=== PATIENT | male | born 1975 | race Caucasian/White ===

== ENCOUNTER 2017-07-07 08:17 | Inpatient (IN) | payer MEDICARE, SELFPAY ==
[2017-07-07] VITALS (51 sets, daily range): BP systolic 95–142; BP diastolic 54–113; PULSE 75–157; RESP 16–41; TEMP 36–37; O2SAT 7–100
--- NOTE | 2017-07-07 08:32 | DI.RPTCT_ITS ---
SYMPTOM/DIAGNOSIS: ABD PAIN, SEVERE CT ABDOMEN AND PELVIS: CT scan of the abdomen and pelvis was performed following the uneventful administration of intravenous contrast material. Comparison examination is 07/03. The lung bases are clear. On the current examination there is now free air seen beneath the hemidiaphragms. There is now a moderate amount of dilma-hepatic and dilma- splenic free fluid and a small amount of free fluid in the pelvis. There are again seen distended loops of small bowel with transition in the right abdomen near the enterocolonic anastomosis. There is diffuse bowel wall thickening seen in the proximal small bowel. No portal venous gas is identified. The urinary bladder is distended. There is layering material in the gallbladder. This may be due to the patient's previous CT scan. No biliary ductal dilatation is seen. The distal esophagus is mildly distended with fluid. The liver, spleen, pancreas, adrenal glands and kidneys are unchanged. IMPRESSION: In comparison with the examination from 07/03/17 there is now pneumoperitoneum and moderate amount of abdominal pelvic ascites. 2. There is persistent dilatation of loops of small bowel with transition seen in the right abdomen consistent with a small bowel obstruction. 3. Bowel wall thickening involving the proximal small bowel. No portal venous gas. Ischemic bowel should be considered in addition to an inflammatory infectious enteritis. These findings were discussed with Dr. Bebeto Rodriguez of the Emergency Department on the date of the examination.
--- NOTE | 2017-07-07 08:37 | ED.GENADUL ---
Disposition Clinical Impression: Crohns disease, Small bowel obstruction, Perforated bowel Disposition: [facility] INPATIENT Condition: Critical Medical Decision Making - Medical Decision Making 8:40 -- 42-year-old male with history of Crohn's and partial small bowel resection, recently admitted for small bowel obstruction with volvulus and concern for developing ischemic enteritis on CT imaging, discharge yesterday, presents with severe abdominal pain persistent over the past 30 days, inability to tolerate p.o. fluids. ECG reviewed and interpreted by me: Sinus tachycardia, short AR with AR interval of 84, nonspecific T-wave abnormality. Plan to treat pain with Dilaudid 1 mg IV. I will give IV fluids as patient is severely dehydrated. Consider ischemic bowel versus persistent small bowel obstruction. 9:42 --CT of the abdomen and pelvis interpreted by radiology: Persistent dilated loops of small bowel, thickened bowel wall, free air and free fluid. Concern for bowel rupture. Stat consult to surgery. We will start Zosyn IV. Labs reviewed and significant elevation of lactate. Patient reassessed and remains tachycardic. Continue IV fluid. 9:47 --spoke to Dr. Arteaga who will take the patient to the OR. History of Present Illness - General Chief complaint: Abd Prob Stated complaint: PAIN Time Seen by Provider: 07/07/17 08:29 Source: patient, RN notes reviewed Mode of arrival: ambulatory Limitations: no limitations - History of Present Illness Initial comments: 42-year-old male with history of Crohn's disease, small bowel resection, presents with chief complaint of abdominal pain. Abdominal pain is localized to diffuse abdomen, sharp, severe and constant. Pain is been ongoing for the past 13 days. Patient was seen here on 07/03/2017 and admitted for acute mechanical small bowel obstruction with a suspected component of volvulus with developing ischemic enteritis seen on CT imaging. He received IV fluids and seemed to improve clinically per inpatient notes and he was discharged yesterday. Since he has been home he notes that his pain has continued and he has not been able to take anything except water p.o. He has had some continued nausea and vomiting. No fevers. Patient does feel generally weak. He was not able to sleep last night because the pain was so unbearable. - Related Data Acetaminophen [Tylenol] 650 mg PO Q6H PRN PRN #30 tab 07/06/17 Prednisone See Taper PO DAILY #252 tablet 07/06/17 Allergies Allergy/AdvReac Type Severity Reaction Status Date / Time No Known Allergies Allergy Unverified 07/07/17 09:01 Review of Systems Respiratory: shortness of breath Cardiovascular: denies: chest pain Gastrointestinal: as per HPI, abdominal pain, nausea, vomiting Comment: All other systems reviewed and negative Past Medical History - Past Medical History Crohn's disease Surgical history: other (Status post bowel resection) - Social History Alcohol use: none Drug use: marijuana General Exam - General Limitations: no limitations General appearance: alert, in no apparent distress - Eye Eye exam: Absent: scleral icterus, conjunctival injection - ENT ENT exam: Present: mucous membranes dry - Respiratory Respiratory exam: Present: normal lung sounds bilaterally. Absent: wheezes, rales, rhonchi - Cardiovascular Cardiovascular Exam: Present: normal rhythm, tachycardia, normal heart sounds - GI/Abdominal GI/Abdominal exam: Present: soft, tenderness, guarding, hypoactive bowel sounds. Absent: rebound, rigid - Extremities Exam Extremities exam: Present: pedal edema (Trace bilateral about the ankles) - Neurological Exam Neurological exam: Present: alert. Absent: altered - Psychiatric Psychiatric exam: Present: normal affect - Skin Skin exam: Present: warm, dry, intact Course Vital Signs - 24 hr 07/07/17 08:25 Temperature 36.2 C L Pulse 157 H Respiratory 16 Rate Blood Pressure 111/84 Pulse Oximetry 99
[2017-07-07] MEDS: Normal Saline 1,000 ML 1000 ML IV (08:50)
[2017-07-07] MEDS: HYDROmorphone 2 MG/ML VIAL 1 MG IVP ×2 (08:51→09:12)
[2017-07-07] MEDS: Ondansetron 4 MG/2 ML VIAL IVP (08:55)
[2017-07-07 08:56] LABS: Abs Immature Grans 0.33 k/cumm (0.0-0.09); HCT 37.6 % (40.0-50.0); HGB 12.7 g/dL (13.5-17.5); Mean Corp. HGB Concentration 33.8 g/dL (32.0-36.0); Mean Corpuscular Hemoglobin 31.8 pg (27.0-33.0); Mean Platelet Volume 10.4 fL (8.0-11.0); RBC Distribution Width 13.4 % (11.8-14.1); White Blood Cell Count 4.95 k/cumm (4.4-10.8)
[2017-07-07 09:00] LABS: Lactate-non-spesis 8.1 mmol/L (0.6-1.4)
[2017-07-07 09:08] LABS: ALT 22 U/L (16-63); AST 30 U/L (15-37); Albumin 1.3 g/dL (3.4-5.0); Alkaline Phosphatase 71 U/L (46-116); Anion Gap 15.1 mmol/L (3-11); BUN 30 mg/dL (7-18); Bilirubin, Total 0.78 mg/dL (0.2-1.0); CO2 21.9 mmol/L (21.0-32.0); CREATININE 1.25 mg/dL (0.70-1.30); Calcium 8.7 mg/dL (8.5-10.1); Chloride 96 mmol/L (98-107); Glucose 146 mg/dL (70-100); Potassium 4.3 mmol/L (3.5-5.1); Sodium 133 mmol/L (136-145); Total Protein 5.8 g/dL (6.4-8.2)
[2017-07-07 09:09] LABS: Lipase 36 U/L (73-393)
[2017-07-07 09:27] LABS: Absolute Lymphocyte Count 1.04 k/cumm (1.2-3.4); Absolute Neutrophil Count 3.12 k/cumm (1.2-6.7); Atypical Lymphocytes % 4
[2017-07-07 09:28] LABS: Absolute Basophil Count 0.05 k/cumm (0.0-0.2); Absolute Monocyte Count 0.25 k/cumm (0.11-0.7); Diff Comment Manual Differential; Polychromasia Present
[2017-07-07 09:29] LABS: Platelet Count 295 x1000/uL (130-400)
[2017-07-07] MEDS: Omnipaque 350 MG/ML 100 ML BTL IJ (09:38)
--- NOTE | 2017-07-07 09:52 | NUR.NOTE ---
Nursing Note: Per patient's request, contacted patient's mother to let her know that he would be going to surgery shortly and would then be up on the med surg floor.
--- NOTE | 2017-07-07 10:53 | HPE_ITS ---
DATE OF SERVICE July 07, 2017 ASSESSMENT A 42-year-old with a history of Crohn's was admitted with acute flare. He seemed to be doing better, minimal abdominal pain, was eating, passing gas and having bowel movements, so he was discharged yesterday. He comes back today with increased abdominal pain and now free air on CAT scan. PLAN Exploratory laparotomy with lysis of adhesions, bowel resection, wash out, possible wound VAC, central line and A-line placements. The risks, benefits and complications were reviewed with him and he wished to proceed. No guarantees were given or implied. HISTORY OF PRESENT ILLNESS Mr. Grossman is a pleasant 42-year-old gentleman who was just admitted on 07/03 for Crohn's flare. He was started on IV prednisone. Yesterday, Thursday 07/06, the patient's pain was much better. He was eating, he was having bowel movements , passing gas, so he was discharged home on a prednisone taper. He was counseled on diet. He comes back today with increasing abdominal pain, nausea, vomiting, inability to tolerate any fluids. He is diaphoretic with chills. CT scan was repeated in the Emergency Department and unfortunately, it shows an obstruction again with a lot of inflammation, fluid and now free air. PAST MEDICAL HISTORY 1. Gastroesophageal reflux disease. 2. Crohn's, which has not been treated for a long time. PAST SURGICAL HISTORY 1. Bilateral inguinal hernia repairs as a child. 2. Small bowel resection x2 for Crohn's. FAMILY HISTORY Family history is significant for Afib in his mom. Hyperthyroid in his mom. SOCIAL HISTORY He smokes a pack a day since age 18. Alcohol is occasional. He does use marijuana. He lives at home with girl friend and his kids. HOME MEDICATIONS Prednisone, which he was discharged with yesterday, he had not yet picked up. Tylenol and ibuprofen for pain. ALLERGIES TO MEDICATIONS No known drug allergies. REVIEW OF SYSTEMS CONSTITUTIONAL - Chills, diaphoretic, sweating. HEENT - EYES - are negative for vision changes. ENT negative for hearing changes or ear discharge. RESPIRATORY - No shortness of breath or cough. CARDIOVASCULAR - Feels palpitations. GASTROINTESTINAL - Abdominal pain, which is severe and nausea. GENITOURINARY - No dysuria or hematuria. MUSCULOSKELETAL - Negative. SKIN - No rashes or bruising. NEUROLOGIC - No confusion or seizures. PHYSICAL EXAMINATION VITAL SIGNS - Temperature 36.2. Pulse rate 157. Blood pressure 111/84. Pain of 10. Respiratory rate 16. O2 sats 99% on room air. GENERAL - The patient looks in pain. He is pale and diaphoretic. CARDIOVASCULAR - Sinus tachycardia. No murmurs. CHEST - Clear to auscultation, good air bilaterally. ABDOMEN - Abdomen is distended, tender to palpation diffusely. LABORATORY STUDIES White count is 4.95, hemoglobin 12.7, hematocrit 37.6, platelets 295, bands 33% , [id number], potassium 4.3, chloride 96, carbon dioxide 21.9, BUN 30, creatinine 1.25, glucose 146, lactate 8.1, calcium 8.7. LFTs normal, albumin 1.3.
[2017-07-07 11:09] LABS: HCO3 21 mmol/L (22-28); pCO2 49 mmHg (34-47); pH 7.24 (7.35-7.45); pO2 327 mmHg (83-108); sO2 98 % (94-98); tCO2 20 mmol/L (22-29)
[2017-07-07 11:13] LABS: Site Left Radial
[2017-07-07 11:14] LABS: FIO2L Unknown/Not Given L
--- NOTE | 2017-07-07 11:20 | BOWEL_PTH ---
PATIENT: Aditya Grossman LOC: ICU U#:[id number] AGE/SX: 42/M ROOM: ICU.219 RE07/07/[address]: Aminta Arteaga MD : [id number] BED: A DIS: 07/10/2017 SPEC #: [id number] RECD: 07/07/17 13:20 STATUS: JIM REQ #: [id number] LIANA: 07/07/17 11:[address]: Aminta Arteaga DEPT: Surgical Specimen RECD BY: Lauren Jacome ENTERED: 07/07/17 13:21 SP TYPE: Bowel OTHR DR: Jeanne Alatorre, REYNA Tissues: 1 - BOWEL RESECTION(OTHER) Procedures: GROSS AND MICRO LEVEL 5 Comments: [id number]
[2017-07-07] MEDS: Bupivacaine 0.5% Pres-Free 30 ML VIAL (12:30)
[2017-07-07 13:31] LABS: Abs Immature Grans 0.03 k/cumm (0.0-0.09); HCT 26.9 % (40.0-50.0); HGB 9.2 g/dL (13.5-17.5); Lactate-non-spesis 5.1 mmol/L (0.6-1.4); Mean Corp. HGB Concentration 34.2 g/dL (32.0-36.0); Mean Corpuscular Hemoglobin 31.9 pg (27.0-33.0); Mean Corpuscular Volume 93.4 fL (80-95); Mean Platelet Volume 10.4 fL (8.0-11.0); RBC 2.88 m/cumm (4.50-6.00); White Blood Cell Count 2.13 k/cumm (4.4-10.8)
[2017-07-07 13:43] LABS: BUN 26 mg/dL (7-18); CREATININE 0.67 mg/dL (0.70-1.30); Calcium 7.3 mg/dL (8.5-10.1); Glucose 92 mg/dL (70-100)
[2017-07-07 13:44] LABS: Anion Gap 10.3 mmol/L (3-11); CO2 20.7 mmol/L (21.0-32.0); Chloride 102 mmol/L (98-107); Potassium 4.2 mmol/L (3.5-5.1); Sodium 133 mmol/L (136-145)
[2017-07-07 14:06] LABS: Absolute Monocyte Count 0.13 k/cumm (0.11-0.7); Absolute Neutrophil Count 1.34 k/cumm (1.2-6.7); Atypical Lymphocytes % 7
[2017-07-07 14:09] LABS: Platelet Count 152 x1000/uL (130-400); Polychromasia Present
[2017-07-07 14:10] LABS: Diff Comment Manual Differential
--- NOTE | 2017-07-07 14:26 | DI.REPORT_ITS ---
SYMPTOM/DIAGNOSIS: LINE PLACEMENT, EMERGENCY SURGERY FOR BOWEL PORTABLE AP CHEST; Comparison is made with 11/10/09. Heart size and pulmonary vasculature are within normal limits. The lungs are clear. There is a nasogastric tube, the tip is seen in the body of the stomach. There has been interval placement of a right internal jugular central venous catheter. The tip of the catheter is in the superior vena cava. No pneumothorax is identified. Note is made of free air beneath the hemidiaphragm. This was present on CT scan of the abdomen and pelvis from earlier in the day. IMPRESSION: Right internal jugular central venous catheter placement, tip of the catheter is in good position in the superior vena cava. No pneumothorax is identified.
[2017-07-07] MEDS: Lactated Ringers 1,000 ML 250 ML IV ×4 (15:21→22:01)
[2017-07-07] MEDS: Lactated Ringers 1,000 ML 1000 ML IV ×3 (16:02→20:23)
[2017-07-07] MEDS: Pantoprazole 40 MG VIAL IVP (16:21)
[2017-07-07] MEDS: Normal Saline Flush 10 ML SYR IVP ×3 (16:22→23:51)
[2017-07-07 17:28] LABS: BE -1.3 mmol/L (-3-3); HCO3 23 mmol/L (22-28); pCO2 36 mmHg (34-47); pH 7.42 (7.35-7.45); pO2 85 mmHg (83-108); sO2 96 % (94-98); tCO2 22 mmol/L (22-29)
[2017-07-07 17:30] LABS: Site Arterial Line
[2017-07-07] MEDS: Ketorolac 30 MG/ML VIAL IVP ×2 (18:34→23:50)
--- NOTE | 2017-07-07 20:56 | ROE_ITS ---
DATE OF PROCEDURE: July 07, 2017 PREOPERATIVE DIAGNOSIS: #1. Free air. #2. History of Crohn's. POSTOPERATIVE DIAGNOSIS: #1. Necrotic small and large bowel around old anastomosis with perforation. PROCEDURE: #1. Exploratory laparotomy with lysis of adhesions. #2. Resection of ischemic bowel with [id number] stapled anastomosis and creation of loop ileostomy . SURGEON: Aminta Arteaga M.D. ASSISTANTS: Aditya Mccarthy PA-C and Shane Cotton PA-C ANESTHESIA: General endotracheal anesthesia. ANESTHESIA PROVIDER: Asad Hunt CRNA BLOOD LOSS: 50 cc SPECIMENS: 20 cm of small bowel and another 10-15 cm of large bowel including an old anastomosis. FLUIDS GIVEN: 3 liters. URINE OUTPUT: 300 cc of very dark brown urine. COMPLICATIONS: No immediate complications. INDICATIONS: Mr. Grossman is a 42-year-old gentleman with a history of Crohn's who was admitted [facility] on Tuesday with an acute flare of Crohn's. I took over care on Tuesday. At that time the patie nt was doing well, NG output had decreased, and he was tolerating a clear liquid diet. I slowly adva nced his diet and Tuesday he was feeling well, eating, having bowel movements and passing gas so he discharged home on p.o. prednisone. He returned to the ER today looking much worse, diaphoretic, pa le, and in a lot of abdominal pain. Repeat CT scan now showed free air so the patient was taken cedric gently to the OR. The risks, benefits, and complications were reviewed and he wished to proceed. No guarantees were given or implied. FINDINGS: 20 cm of dilated, thickened, and ischemic-looking small bowel and about 10 cm of thickened large bowel around the old anastomosis. PROCEDURE: After informed consent was obtained the patient was taken to the Operating Room and place d in a supine position. Monitors were applied and he was placed under general anesthesia and intubat ed. SCDs had been applied. Once intubated a time-out was done. The patient's name, date of , procedure type, allergies to medications, DVT prophylaxis and antibiotic given were all reviewed. Ne xt, a Cleaning catheter was placed in a standard surgical fashion and his abdomen was prepped and draped in a sterile surgical fashion. Using a 10 blade, a midline incision was made along his old midline scar. Dissection was done with charlotte cui through his subcutaneous tissue down to the fascia. The fascia was grasped and opened sharply , being careful not to injure any bowel underneath. As soon as I made an opening into the fascia, th ere was black fluid coming through. The rest of the fascia was opened along the incision and all of the fluid was suctioned out. A [place] was then placed to retract the abdominal wall and the bowel w as inspected. There was no volvulus noted. The omentum was adhered to parts of the abdominal wall a nd this was taken down using cautery. The ligament of Treitz was then identified and I followed that along the bowel until I found the edge of the ischemic area. The healthy bowel was measured and it was 184 cm of bowel. A small opening was then made in the mesentery at the edge of the necrotic bowel and healthy bowel an d using a 55 PARVIN stapler the bowel was stapled off. The necrotic bowel was then followed onto the ol d anastomosis which was scarred down quite a bit and the small amount of ascending colon that he had did not look healthy; it was quite thickened and had some patchy necrosis. I found an area in the tr ansverse colon that looked healthy, not thickened, and again a small opening was made in the mesenter y and the bowel was stapled off with a 75 PARVIN stapler. The mesentery was then coagulated and cut wit h an LAURIE HARMONIC. The bowel was then removed. Again, it was about 30 cm in length, 20 of that smal l bowel and 10 large bowel. It was placed into formalin. The abdomen was then thoroughly irrigated with a total of 6 liters of fluid, making sure to get all the fluid from above the liver, from the le ft upper quadrant around the spleen, and then in his pelvis. The rest of his large bowel was followe d. It looked healthy. A [id number]-eu-rzzw anastomosis was then created. The small bowel was laid next to the transverse colon. It was secured with #2-0 silk. A small incision was made on the antimesenteric side, a 55 PARVIN stapl er was placed through these two openings, and a new enterotomy was created between the two pieces of bowel. The end of the bowel was then transected again with a 55 PARVIN stapler. The staple line was th en oversewn with #2-0 silk. The bowel was then placed into the abdomen so that there was no tension on his new anastomosis. The mesentery was then closed with #2-0 Vicryl. At this point, because the patient had been on prednisone and more than likely will be on prednisone again afterwards, his nutrition is dismal at this point with an albumin of 1.3, and he is quite sick, I elected to do a loop ileostomy. Just to the left of the umbilicus, a small round incision was mad e with a 10 blade. The subcutaneous tissue was removed. An X was placed into the fascia and the per itoneum was entered with hemostats. The opening was stretched with my fingers. A loop of the small bowel was then brought up. The fascia was then closed with two #1 Vicryl sutures tied in the middle. The subcutaneous tissue was cleaned. Exparel mixed with bupivacaine was then injected along the fa scia and into the dermis. Once this was done, the loop ileostomy was created. An incision was made in the bowel with a knife. The bowel was secured to the fascia and four corners and then the ileosto my was created in a standard fashion with #2-0 silk. Once the ostomy was created, I placed a finger in each side to make sure that it was not too tight. I was able to place my finger easily into both loops. The skin was then cleaned and dried and an ostomy bag was applied. Then 4x4s were applied to the midline and secured with Tegaderm. At this point the patient was doing fairly well so he was extubated and taken up to the ICU for monit oring overnight. Sponge, instrument, and needle counts were correct x3 at the end of the case.
[2017-07-07] MEDS: Hydrocortisone SOD SUC. 100 MG VIAL 50 MG IVP (21:11)
[2017-07-08] VITALS (41 sets, daily range): BP systolic 93–125; BP diastolic 53–95; PULSE 104–133; RESP 21–38; TEMP 36–37; O2SAT 92–98
[2017-07-08] MEDS: Lactated Ringers 1,000 ML 250 ML IV ×2 (01:37→05:14)
[2017-07-08] MEDS: Hydrocortisone SOD SUC. 100 MG VIAL 50 MG IVP ×3 (05:15→21:08)
[2017-07-08] MEDS: Ketorolac 30 MG/ML VIAL IVP ×3 (05:16→18:09)
[2017-07-08 06:49] LABS: Abs Immature Grans 0.22 k/cumm (0.0-0.09); HCT 23.8 % (40.0-50.0); HGB 8.1 g/dL (13.5-17.5); Mean Corpuscular Hemoglobin 31.8 pg (27.0-33.0); Mean Corpuscular Volume 93.3 fL (80-95); Mean Platelet Volume 10.8 fL (8.0-11.0); Platelet Count 121 x1000/uL (130-400); RBC 2.55 m/cumm (4.50-6.00); RBC Distribution Width 13.3 % (11.8-14.1); White Blood Cell Count 3.66 k/cumm (4.4-10.8)
[2017-07-08 07:01] LABS: ALT 33 U/L (16-63); AST 70 U/L (15-37); Albumin 0.6 g/dL (3.4-5.0); Alkaline Phosphatase 47 U/L (46-116); Anion Gap 8.6 mmol/L (3-11); BUN 18 mg/dL (7-18); Bilirubin, Total 0.67 mg/dL (0.2-1.0); CO2 25.4 mmol/L (21.0-32.0); CREATININE 0.64 mg/dL (0.70-1.30); Calcium 7.4 mg/dL (8.5-10.1); Chloride 104 mmol/L (98-107); Potassium 4.2 mmol/L (3.5-5.1); Sodium 138 mmol/L (136-145); Total Protein 3.7 g/dL (6.4-8.2)
[2017-07-08 07:16] LABS: Glucose 47 mg/dL (70-100)
[2017-07-08 07:25] LABS: Absolute Lymphocyte Count 0.59 k/cumm (1.2-3.4); Absolute Monocyte Count 0.11 k/cumm (0.11-0.7); Absolute Neutrophil Count 2.78 k/cumm (1.2-6.7)
[2017-07-08 07:26] LABS: Absolute Eosinophil Count 0.04 k/cumm (0.0-0.7); Diff Comment Manual Differential; Microcytosis 1+; Poikilocytes 2+
[2017-07-08] MEDS: Normal Saline Flush 10 ML SYR IVP ×5 (07:45→21:09)
[2017-07-08 07:54] LABS: Magnesium 1.4 mg/dL (1.8-2.4)
[2017-07-08 07:56] LABS: Lactate-non-spesis 2.7 mmol/L (0.6-1.4)
[2017-07-08] MEDS: Pantoprazole 40 MG VIAL IVP (08:03)
[2017-07-08] MEDS: DEXTROSE 5%-0.45% SALINE 1,000 ML 150 ML IV ×2 (08:04→14:35)
[2017-07-08] MEDS: Dextrose 50%-Water 25 GM/50 ML SYR IVP (08:43)
--- NOTE | 2017-07-08 08:44 | PDOC.PROG ---
Date of Service: 07/08/17 Time of Service: 08:45 Assessment/Plan - Assessment/Plan (1) SBO (small bowel obstruction) Assessment: POD 1 S/P exploration for perforation and small bowel resection Has required large amount iv fluid thus far UO fair Postop ileus is fully expected Bowel sounds are absent presently however abdomen is nondistended and not particularly tender Small amount of liquid stool in bag this am NG output is no longer black-resolved gastric bleeding with Protonix Run of ventricular arrhythmia of undetermined etiology this am K is normal at 4.2 Mg is low Plan: NPO until passing gas and stool well Hydrate appropriately-follow outputs closely-creatinie this am is improved Supplement magnesium Hospitalist consult for arrhythmia and glucose control Aggressive respiratory therapy OOB in chair as tolerated Daily saline dressing change History of Present Illness - History of Present Illness Chief Complaint: Pt says he is pretty comfortable except at incision Review of Systems - Medications/Allergies Allergies/Adverse Reactions: Allergies Allergy/AdvReac Type Severity Reaction Status Date / Time No Known Allergies Allergy Unverified 07/07/17 09:01 Medications: Current Medications Albuterol Sulfate (Proventil Updraft) 2.5 mg UPD Q2H PRN PRN Albuterol/Ipratropium (Duoneb Updraft) 3 ml UPD Q6H PRN PRN Dextrose/Water () 0 gm IVP DIRECTED PRN Dimethicone/Zinc Oxide (Pavel Protect Cream) 0 gm TP PRN PRN Enoxaparin Sodium (Lovenox) 30 mg SC Q24H [facility] Hydrocortisone (Solu-Cortef) 50 mg IVP Q8H [facility] Last Admin: 07/08/17 05:15 Dose: 50 mg Hydromorphone HCl (Dilaudid Injection) 1 mg IVP Q4H PRN PRN Acetaminophen 1,000 mg/ Device 100 mls @ 400 mls/hr IVPB Q8H [facility] Last Admin: 07/08/17 05:17 Dose: 400 mls/hr Piperacillin/Tazobactam/ (Dextrose 3.375 gm/ Device) 50 mls @ 100 mls/hr IVPB Q6H [facility] Last Admin: 07/08/17 03:52 Dose: 100 mls/hr Dextrose/Sodium Chloride (Dextrose 5%-0.45% Ns) 1,000 mls @ 150 mls/hr IV INFUSION [facility] Last Admin: 07/08/17 08:04 Dose: 150 mls/hr Magnesium Sulfate/Dextrose 1 g (/ Device) 100 mls @ 100 mls/hr IVPB NOW ONE Stop: 07/08/17 09:14 Fat Emulsion 250 ml/ Device 250 mls @ 31.25 mls/hr IV DAILY [facility] Sodium/Potass/Mag/Aleks/Chlor/Acetate 20 ml/ Multivitamins 10 ml/ Chromium/Copper/Manganese/Zinc 1 ml/ Amino Acids/Dextrose 1,031 mls @ 85.917 mls/hr IV .BY DURATION [facility] Sodium/Potass/Mag/Aleks/Chlor/Acetate 20 ml/ Amino Acids/Dextrose 1,020 mls @ 85 mls/hr IV .BY DURATION [facility] IV Miscellaneous Supplies () 1 each IV DIRECTED [facility] Ketorolac Tromethamine (Toradol Injection) 30 mg IVP Q6H [facility] Stop: 07/12/17 17:59 Last Admin: 07/08/17 05:16 Dose: 30 mg Ondansetron HCl (Zofran Injection) 4 mg IVP Q4H PRN PRN Pantoprazole Sodium (Protonix Injection) 40 mg IVP DAILY [facility] Last Admin: 07/08/17 08:03 Dose: 40 mg Sodium Chloride (Saline Flush 10 Ml Syringe) 0 ml IVP PRN PRN Last Admin: 07/08/17 07:45 Dose: 50 ml Objective - Exam Vitals and I&O: Vital Signs Temp 36 C L 07/08/17 05:17 Pulse 124 H 07/08/17 07:00 Resp 28 H 07/08/17 07:00 BP 99/63 07/08/17 07:00 Pulse Ox 92 L 07/08/17 07:00 Intake & Output 07/07/17 07/07/17 07/08/17 11:59 23:59 11:59 Intake Total 7124 2415 Output Total 1415 480 Balance 5709 1935 Weight 56.2 kg 61.4 kg Intake: IV 7024 2315 Oral 100 100 Output: Gastric Drainage 550 Left Nare 550 Urine 725 375 Stool 90 105 Estimated Blood Loss 50 Other: Urine Color Dark Dilia Dark Dilia Urine Appearance Cloudy Cloudy Comment Emptied at this time for 250cc dark dilia urine. PH 6, SG 1.020, No blood,leuks, ketones. Cleaning draining dark dilia urine, QS. PH 6, SG 1.020, No blood,leuks, ketones. Gastric Occult Blood Left Nare Negative Negative General: Alert, Other (appropriate affect, calm) HEENT: Mucous membr. moist/pink Lungs: Clear to auscultation, Normal air movement Cardiovascular: Regular rate Abdomen: Other Neurological: Normal speech Psych/Mental Status: Mental status NL Other physical findings: Bowel sounds are absent, abdomen is nondistended Dressing is intact, no sig blood on dressing-serous 375cc UO since midnight 120cc of liquiod in stoma bag this am - Results Results: Laboratory Results WBC 3.66 k/cumm (4.4-10.8) L D 07/08/17 06:00 RBC 2.55 m/cumm (4.50-6.00) L 07/08/17 06:00 Hgb 8.1 g/dL (13.5-17.5) L 07/08/17 06:00 Hct 23.8 % (40.0-50.0) L 07/08/17 06:00 MCV 93.3 fL (80-95) 07/08/17 06:00 MCH 31.8 pg (27.0-33.0) 07/08/17 06:00 MCHC 34.0 g/dL (32.0-36.0) 07/08/17 06:00 RDW 13.3 % (11.8-14.1) 07/08/17 06:00 Plt Count 121 x1000/uL (130-400) L 07/08/17 06:00 MPV 10.8 fL (8.0-11.0) 07/08/17 06:00 Immature Gran % See Differential 07/08/17 06:00 Neutrophils % 59.0 07/08/17 06:00 Lymphocytes % 16.0 07/08/17 06:00 Monocytes % 3.0 07/08/17 06:00 Eosinophils % 1.0 07/08/17 06:00 Basophils % 0.0 07/08/17 06:00 Absolute Neutrophils 2.78 k/cumm (1.2-6.7) 07/08/17 06:00 Band Neutrophils 17.0 % 07/08/17 06:00 Absolute Lymphocytes 0.59 k/cumm (1.2-3.4) L 07/08/17 06:00 Absolute Monocytes 0.11 k/cumm (0.11-0.7) 07/08/17 06:00 Absolute Eosinophils 0.04 k/cumm (0.0-0.7) 07/08/17 06:00 Absolute Basophils 0.00 k/cumm (0.0-0.2) 07/08/17 06:00 Metamyelocytes 4.0 % 07/08/17 06:00 Myelocytes 5.0 % 07/07/17 08:45 Differential Comment Manual differential 07/08/17 06:00 Atypical Lymphocytes 7 07/07/17 13:20 RBC Morphology See below 07/07/17 13:20 Polychromasia Present 07/07/17 13:20 Poikilocytosis 2+ 07/08/17 06:00 Microcytosis 1+ 07/08/17 06:00 Sample Site Arterial line 07/07/17 17:25 pCO2 36 mmHg (34-47) 07/07/17 17:25 pO2 85 mmHg (83-108) 07/07/17 17:25 O2 Saturation 96 % (94-98) 07/07/17 17:25 ABG pH 7.42 (7.35-7.45) 07/07/17 17:25 ABG HCO3 23 mmol/L (22-28) 07/07/17 17:25 ABG Total CO2 22 mmol/L (22-29) 07/07/17 17:25 ABG Base Excess -1.3 mmol/L (-3-3) 07/07/17 17:25 Oxygen Liter Flow Unknown/not given L 07/07/17 11:08 Sodium 138 mmol/L (136-145) 07/08/17 06:00 Potassium 4.2 mmol/L (3.5-5.1) 07/08/17 06:00 Chloride 104 mmol/L (98-107) 07/08/17 06:00 Carbon Dioxide 25.4 mmol/L (21.0-32.0) 07/08/17 06:00 Anion Gap 8.6 mmol/L (3-11) 07/08/17 06:00 BUN 18 mg/dL (7-18) D 07/08/17 06:00 Creatinine 0.64 mg/dL (0.70-1.30) L 07/08/17 06:00 Estimated GFR/1.73 m2 >= 60.00 (mL/min/1.73m2) 07/08/17 06:00 Glucose 47 mg/dL (70-100) L 07/08/17 06:00 Lactate 2.7 mmol/L (0.6-1.4) H 07/08/17 07:50 Calcium 7.4 mg/dL (8.5-10.1) L 07/08/17 06:00 Magnesium 1.4 mg/dL (1.8-2.4) L 07/08/17 06:00 Total Bilirubin 0.67 mg/dL (0.2-1.0) 07/08/17 06:00 AST 70 U/L (15-37) H 07/08/17 06:00 ALT 33 U/L (16-63) 07/08/17 06:00 Alkaline Phosphatase 47 U/L (46-116) 07/08/17 06:00 Total Protein 3.7 g/dL (6.4-8.2) L 07/08/17 06:00 Albumin 0.6 g/dL (3.4-5.0) L 07/08/17 06:00 Lipase 36 U/L (73-393) L 07/07/17 08:45 Patient ABO/Rh B Positive 07/07/17 10:08 Antibody Screen Negative 07/07/17 10:08
--- NOTE | 2017-07-08 08:48 | PDOC.PROG_ITS ---
Date of Service: 07/08/17 Time of Service: 08:45 Assessment/Plan - Assessment/Plan (1) SBO (small bowel obstruction) Assessment: POD 1 S/P exploration for perforation and small bowel resection Has required large amount iv fluid thus far UO fair Postop ileus is fully expected Bowel sounds are absent presently however abdomen is nondistended and not particularly tender Small amount of liquid stool in bag this am NG output is no longer black-resolved gastric bleeding with Protonix Run of ventricular arrhythmia of undetermined etiology this am K is normal at 4.2 Mg is low Plan: NPO until passing gas and stool well Hydrate appropriately-follow outputs closely-creatinie this am is improved Supplement magnesium Hospitalist consult for arrhythmia and glucose control Aggressive respiratory therapy OOB in chair as tolerated Daily saline dressing change History of Present Illness - History of Present Illness Chief Complaint: Pt says he is pretty comfortable except at incision Review of Systems - Medications/Allergies Allergies/Adverse Reactions: Allergies Allergy/AdvReac Type Severity Reaction Status Date / Time No Known Allergies Allergy Unverified 07/07/17 09:01 Medications: Current Medications Albuterol Sulfate (Proventil Updraft) 2.5 mg UPD Q2H PRN PRN Albuterol/Ipratropium (Duoneb Updraft) 3 ml UPD Q6H PRN PRN Dextrose/Water () 0 gm IVP DIRECTED PRN Dimethicone/Zinc Oxide (Pavel Protect Cream) 0 gm TP PRN PRN Enoxaparin Sodium (Lovenox) 30 mg SC Q24H [facility] Hydrocortisone (Solu-Cortef) 50 mg IVP Q8H [facility] Last Admin: 07/08/17 05:15 Dose: 50 mg Hydromorphone HCl (Dilaudid Injection) 1 mg IVP Q4H PRN PRN Acetaminophen 1,000 mg/ Device 100 mls @ 400 mls/hr IVPB Q8H [facility] Last Admin: 07/08/17 05:17 Dose: 400 mls/hr Piperacillin/Tazobactam/ (Dextrose 3.375 gm/ Device) 50 mls @ 100 mls/hr IVPB Q6H [facility] Last Admin: 07/08/17 03:52 Dose: 100 mls/hr Dextrose/Sodium Chloride (Dextrose 5%-0.45% Ns) 1,000 mls @ 150 mls/hr IV INFUSION [facility] Last Admin: 07/08/17 08:04 Dose: 150 mls/hr Magnesium Sulfate/Dextrose 1 g (/ Device) 100 mls @ 100 mls/hr IVPB NOW ONE Stop: 07/08/17 09:14 Fat Emulsion 250 ml/ Device 250 mls @ 31.25 mls/hr IV DAILY [facility] Sodium/Potass/Mag/Aleks/Chlor/Acetate 20 ml/ Multivitamins 10 ml/ Chromium/Copper/ Manganese/Zinc 1 ml/ Amino Acids/Dextrose 1,031 mls @ 85.917 mls/hr IV .BY DURATION [facility] Sodium/Potass/Mag/Aleks/Chlor/Acetate 20 ml/ Amino Acids/Dextrose 1,020 mls @ 85 mls/hr IV .BY DURATION [facility] IV Miscellaneous Supplies () 1 each IV DIRECTED [facility] Ketorolac Tromethamine (Toradol Injection) 30 mg IVP Q6H [facility] Stop: 07/12/17 17:59 Last Admin: 07/08/17 05:16 Dose: 30 mg Ondansetron HCl (Zofran Injection) 4 mg IVP Q4H PRN PRN Pantoprazole Sodium (Protonix Injection) 40 mg IVP DAILY [facility] Last Admin: 07/08/17 08:03 Dose: 40 mg Sodium Chloride (Saline Flush 10 Ml Syringe) 0 ml IVP PRN PRN Last Admin: 07/08/17 07:45 Dose: 50 ml Objective - Exam Vitals and I&O: Vital Signs Temp 36 C L 07/08/17 05:17 Pulse 124 H 07/08/17 07:00 Resp 28 H 07/08/17 07:00 BP 99/63 07/08/17 07:00 Pulse Ox 92 L 07/08/17 07:00 Intake & Output 07/07/17 07/07/17 07/08/17 11:59 23:59 11:59 Intake Total 7124 2415 Output Total 1415 480 Balance 5709 1935 Weight 56.2 kg 61.4 kg Intake: IV 7024 2315 Oral 100 100 Output: Gastric Drainage 550 Left Nare 550 Urine 725 375 Stool 90 105 Estimated Blood Loss 50 Other: Urine Color Dark Dilia Dark Dilia Urine Appearance Cloudy Cloudy Comment Emptied at this time for 250cc dark dilia urine. PH 6, SG 1.020, No blood,leuks, ketones. Cleaning draining dark dilia urine, QS. PH 6, SG 1.020, No blood,leuks, ketones. Gastric Occult Blood Left Nare Negative Negative General: Alert, Other (appropriate affect, calm) HEENT: Mucous membr. moist/pink Lungs: Clear to auscultation, Normal air movement Cardiovascular: Regular rate Abdomen: Other Neurological: Normal speech Psych/Mental Status: Mental status NL Other physical findings: Bowel sounds are absent, abdomen is nondistended Dressing is intact, no sig blood on dressing-serous 375cc UO since midnight 120cc of liquiod in stoma bag this am - Results Results: Laboratory Results WBC 3.66 k/cumm (4.4-10.8) L D 07/08/17 06:00 RBC 2.55 m/cumm (4.50-6.00) L 07/08/17 06:00 Hgb 8.1 g/dL (13.5-17.5) L 07/08/17 06:00 Hct 23.8 % (40.0-50.0) L 07/08/17 06:00 MCV 93.3 fL (80-95) 07/08/17 06:00 MCH 31.8 pg (27.0-33.0) 07/08/17 06:00 MCHC 34.0 g/dL (32.0-36.0) 07/08/17 06:00 RDW 13.3 % (11.8-14.1) 07/08/17 06:00 Plt Count 121 x1000/uL (130-400) L 07/08/17 06:00 MPV 10.8 fL (8.0-11.0) 07/08/17 06:00 Immature Gran % See Differential 07/08/17 06:00 Neutrophils % 59.0 07/08/17 06:00 Lymphocytes % 16.0 07/08/17 06:00 Monocytes % 3.0 07/08/17 06:00 Eosinophils % 1.0 07/08/17 06:00 Basophils % 0.0 07/08/17 06:00 Absolute Neutrophils 2.78 k/cumm (1.2-6.7) 07/08/17 06:00 Band Neutrophils 17.0 % 07/08/17 06:00 Absolute Lymphocytes 0.59 k/cumm (1.2-3.4) L 07/08/17 06:00 Absolute Monocytes 0.11 k/cumm (0.11-0.7) 07/08/17 06:00 Absolute Eosinophils 0.04 k/cumm (0.0-0.7) 07/08/17 06:00 Absolute Basophils 0.00 k/cumm (0.0-0.2) 07/08/17 06:00 Metamyelocytes 4.0 % 07/08/17 06:00 Myelocytes 5.0 % 07/07/17 08:45 Differential Comment Manual differential 07/08/17 06:00 Atypical Lymphocytes 7 07/07/17 13:20 RBC Morphology See below 07/07/17 13:20 Polychromasia Present 07/07/17 13:20 Poikilocytosis 2+ 07/08/17 06:00 Microcytosis 1+ 07/08/17 06:00 Sample Site Arterial line 07/07/17 17:25 pCO2 36 mmHg (34-47) 07/07/17 17:25 pO2 85 mmHg (83-108) 07/07/17 17:25 O2 Saturation 96 % (94-98) 07/07/17 17:25 ABG pH 7.42 (7.35-7.45) 07/07/17 17:25 ABG HCO3 23 mmol/L (22-28) 07/07/17 17:25 ABG Total CO2 22 mmol/L (22-29) 07/07/17 17:25 ABG Base Excess -1.3 mmol/L (-3-3) 07/07/17 17:25 Oxygen Liter Flow Unknown/not given L 07/07/17 11:08 Sodium 138 mmol/L (136-145) 07/08/17 06:00 Potassium 4.2 mmol/L (3.5-5.1) 07/08/17 06:00 Chloride 104 mmol/L (98-107) 07/08/17 06:00 Carbon Dioxide 25.4 mmol/L (21.0-32.0) 07/08/17 06:00 Anion Gap 8.6 mmol/L (3-11) 07/08/17 06:00 BUN 18 mg/dL (7-18) D 07/08/17 06:00 Creatinine 0.64 mg/dL (0.70-1.30) L 07/08/17 06:00 Estimated GFR/1.73 m2 >= 60.00 (mL/min/1.73m2) 07/08/17 06:00 Glucose 47 mg/dL (70-100) L 07/08/17 06:00 Lactate 2.7 mmol/L (0.6-1.4) H 07/08/17 07:50 Calcium 7.4 mg/dL (8.5-10.1) L 07/08/17 06:00 Magnesium 1.4 mg/dL (1.8-2.4) L 07/08/17 06:00 Total Bilirubin 0.67 mg/dL (0.2-1.0) 07/08/17 06:00 AST 70 U/L (15-37) H 07/08/17 06:00 ALT 33 U/L (16-63) 07/08/17 06:00 Alkaline Phosphatase 47 U/L (46-116) 07/08/17 06:00 Total Protein 3.7 g/dL (6.4-8.2) L 07/08/17 06:00 Albumin 0.6 g/dL (3.4-5.0) L 07/08/17 06:00 Lipase 36 U/L (73-393) L 07/07/17 08:45 Patient ABO/Rh B Positive 07/07/17 10:08 Antibody Screen Negative 07/07/17 10:08
--- NOTE | 2017-07-08 09:59 | PDOC.CMIN ---
Care Management Initial Assess REASON FOR HOSPITALIZATION:: Crohns with Necrotic Bowel PAST MEDICAL HISTORY/PAST SURGICAL HISTORY:: SBO, Chrohn's, Hyponatremia, Hypochloremia, GERD, Hernia repair, intestinal hernia repair in childhood, right inguinal hernia repair, bowel resection x2. Current everyday smoker ppd/24 years, marjuana use. PREVIOUS FUNCTIONAL STATUS/SOCIAL/FAMILY SUPPORTS:: Aditya resides in [place], [place], he reports his mother resides with him, but is able to care for herself. Aditya shares that he was deemed disabled due to his Crohn's diagnosis, anxiety and depression. He reports managing these now without issue or provider supports. He utilizes [employer] for transporation. Per reports, Aditya struggles to follow through in the community and prioritize his health. CURRENT FUNCTIONAL STATUS:: Aditya was lying in bed, NG tube in place when CM met with him. He spoke in length about feeling he was now on the right path and feeling he survived for a reason. He shared feeling he was taking meaning and gaining clarity from what he described as a near experience. He reported feeling sure there is someone out there looking over him. Aditya also spoke in length regarding his home stressors, including a strained relationship with his children's mother and court battles. ADVANCE DIRECTIVES:: None on file at [facility]. Has patient been provided with information about the portal?: Yes Did the patient sign up for the portal?: No CODE STATUS:: Full Code INSURANCE COVERAGE / FINANCIAL ISSUES:: Medicare C&S CURRENT HOME/COMMUNITY SERVICES/EQUIPMENT:: [employer] for transportation. PRIMARY CARE PHYSICIAN:: Jeanne Alatorre NP. Aditya reports he has not seen a provider in eight years since being let go from Dr. Gutierres's office. He is willing to follow up with Jeanne Alatorre. POTENTIAL DISCHARGE NEEDS:: PCP follow up: CM requested new patient paperwork from Natalie BORREGO who agreed to fax to this typewriter repairer. CM will complete paperwork with Aditya. Referral to [facility] and [facility] to attain community based case management for disability supports and resource connection. PATIENT/FAMILY EDUCATION NEEDS:: Review discharge instructions, discuss Ask Me Three, discuss self care managment. ANTICIPATED BARRIERS TO DISCHARGE:: None identified at this time. TRANSPORTATION:: Via private vehicle with a friend. PLAN:: Aditya returned to [facility] quite ill as he was found to have necrotic bowel, and will remain at ICU level of care at this time. He will begin TPN for nutrition and continued to be monitored. Aditya will discharge home when ready per MD. [facility] will support Victor Malexa in completing new patient paperwork and fax to [facility]. He will follow up with his PCP and plan of care and transport home via private vehicle.
--- NOTE | 2017-07-08 11:32 | INITIAL_ITS ---
Care Management Initial Assess REASON FOR HOSPITALIZATION:: Crohns with Necrotic Bowel PAST MEDICAL HISTORY/PAST SURGICAL HISTORY:: SBO, Chrohn's, Hyponatremia, Hypochloremia, GERD, Hernia repair, intestinal hernia repair in childhood, right inguinal hernia repair, bowel resection x2. Current everyday smoker ppd/ 24 years, marjuana use. PREVIOUS FUNCTIONAL STATUS/SOCIAL/FAMILY SUPPORTS:: Aditya resides in [place], [place], he reports his mother resides with him, but is able to care for herself. Aditya shares that he was deemed disabled due to his Crohn's diagnosis, anxiety and depression. He reports managing these now without issue or provider supports. He utilizes [employer] for transporation. Per reports, Aditya struggles to follow through in the community and prioritize his health. CURRENT FUNCTIONAL STATUS:: Aditya was lying in bed, NG tube in place when CM met with him. He spoke in length about feeling he was now on the right path and feeling he survived for a reason. He shared feeling he was taking meaning and gaining clarity from what he described as a near experience. He reported feeling sure there is someone out there looking over him. Aditya also spoke in length regarding his home stressors, including a strained relationship with his children's mother and court battles. ADVANCE DIRECTIVES:: None on file at [facility]. Has patient been provided with information about the portal?: Yes Did the patient sign up for the portal?: No CODE STATUS:: Full Code INSURANCE COVERAGE / FINANCIAL ISSUES:: Medicare C&S CURRENT HOME/COMMUNITY SERVICES/EQUIPMENT:: [facility] for transportation. PRIMARY CARE PHYSICIAN:: Jeanne Alatorre NP. Aditya reports he has not seen a provider in eight years since being let go from Dr. Gutierres's office. He is willing to follow up with Jeanne Alatorre. POTENTIAL DISCHARGE NEEDS:: PCP follow up: CM requested new patient paperwork from Natalie BORREGO who agreed to fax to this advertising copy writer. CM will complete paperwork with Aditya. Referral to [facility] and [facility] to attain community based case management for disability supports and resource connection. PATIENT/FAMILY EDUCATION NEEDS:: Review discharge instructions, discuss Ask Me Three, discuss self care managment. ANTICIPATED BARRIERS TO DISCHARGE:: None identified at this time. TRANSPORTATION:: Via private vehicle with a friend. PLAN:: Aditya returned to [facility] quite ill as he was found to have necrotic bowel, and will remain at ICU level of care at this time. He will begin TPN for nutrition and continued to be monitored. Aditya will discharge home when ready per MD. EKTA will support Victor Malexa in completing new patient paperwork and fax to [employer]. He will follow up with his PCP and plan of care and transport home via private vehicle.
--- NOTE | 2017-07-08 13:15 | MCONE_ITS ---
DATE OF CONSULTATION: July 08, 2017 ATTENDING: Dr. Gauri Arteaga from Surgery PRIMARY CARE: Jeanne Alatorre N.P. ASSESSMENT/PLAN: This is a 42-year-old man with uncontrolled Crohn's disease who was readmitted yesterday with ischemic bowel with perforation, he is postoperative day #1 status post bowel resection and ileostomy. His postoperative course has been complicated by persistent tachycardia and tachypnea and hypoglycemia. 1. Cardiovascular: My impression of the tachycardia is that is primarily related to acute blood loss. Patient's initial hemoglobin was 16 as recently as the 03 of July, is currently 8.1. The acute inflammation and his chronic poor nutrition state have likely affected his ability to make new red blood cells to compensate for the blood loss associated with his GI losses and his surgery. He does have occult blood in his stool, which is expected after this type of surgery. He did have some PVC's noted this morning on the rn cardiac cath, and this is likely secondary to the hypomagnesemia also seen, which is being treated. There are no signs of ischemia on his EKG or other tachyarrythmia on cardiac monitoring. I recommend continuing cardiovascular monitoring with no additional specific intervention at this point. With his autoimmune disease and his family history of hyperthyroidism, I will get a TSH to see if that is contributing to his tachycardia. 2. Endocrine: I think his low sugar this morning is related to his hypermetabolic state after surgery with a large amount of abdominal inflammation and his poor nutritional status. I agree with switching to fluids with more glucose, and I did give an additional amp of D50 this morning. I agree with the glucose monitoring every six hours until this stabilizes. 3. Hematologic: As above, I think his anemia is related to acute blood loss, with possible contribution of chronic poor nutrition. He is not losing blood rapidly as far as we can tell, so I don't think a transfusion is indicated at this point. I would use 7 as a transfusion threshold unless the surgeon feels differently. I will get levels of iron stores and B12, as these can be replaced parenterally and he is at risk for poor absorption of these due to his Crohn's disease chronically. Note was also made of his thrombocytopenia. This appears to be acutely developed. He has been on heparin, so if the platelets continue to drop I would discontinue the low molecular weight heparin and use nonpharmacologic DVT prophylaxis. 4. GI: The patient is getting hydrocortisone IV to treat the Crohn's, which I think is appropriate. I also agree with the bowel prophylaxis with Pantoprazole , especially since he has also gotten some Ketorolac for pain. There are some signs in his laboratory examinations of liver dysfunction, including an elevated INR, low albumin, and perhaps even the low platelets. It does not appear to be chronic and there are no signs of cirrhosis on imaging of his liver or splenomegaly. The liver dysfunction may be acute from his severe abdominal infection. 5. Respiratory: The patient is tachypneic, but does not appear to be in respiratory distress. His chest x-ray was negative on 07/07/2017. I think this is likely part of the symptomatology of his acute anemia. 6. Nutrition: I agree with TPN to help support his nutrition until his bowels are able to be used. Appreciate the consult from Dr. Marin. The Medical team will follow along in this case. +++++++++++++++ REASON FOR CONSULTATION: Tachycardia and hypoglycemia in the setting of postoperative day #1 for bowel perforation secondary to Crohn's exacerbation. HISTORY OF PRESENT ILLNESS: This is a 42-year-old man with a history of Crohn' s disease and two prior bowel resections, who has been out of regular care, who was initially admitted on the 03 of July for a Crohn's exacerbation. He was treated with IV steroids from the to the and was improving. At that point he was eating and having a bowel movement. He was discharged on a Prednisone taper, but returned on the to the Emergency Room with nausea and vomiting, worsening abdominal pain, and unable to tolerate any fluids. A CT scan in the Emergency Room revealed obstruction with inflammation and free- air in the abdomen. On July 07 he was taken for exploratory laparotomy with lysis of adhesions. Areas of necrotic small and large bowel around the old anastomosis were noted with perforation. Ischemic areas were resected and a etmn-sb-llau anastomosis was performed with the creation of a loop ileostomy. Estimated blood loss was 50 mL during the surgery and there were no complications. The patient feels like he is getting better. His abdominal pain is minimal at this point. He is not eating, but denies current nausea or vomiting. His pulse has remained in the 120's and 130's with an elevated respiratory rate in the 20's and 30's. Glucose this morning was 47, and was in the 60's after administration of Glucagon. With the patient's tachycardia, tachypnea, and hypoglycemia, the Medicine team was consulted to help in this case. REVIEW OF SYSTEMS: The patient stated he had fevers on admission, but denies feeling febrile right now. No current headache. No current sore throat or mouth lesions. He denies a significant cough or coughing up blood. He denies chest pain or feeling like his heart is racing dramatically. He feels like he is breathing a little heavy, but is trying to breathe deeper. He does not feel overtly short of breath at rest. He states he has minimal abdominal pain currently. He denies nausea or vomiting currently. He denies dysuria, but has a Cleaning placed. He denies notable bruising or bleeding. He denies rashes or other skin lesions. He denies current joint pain or swelling. He does admit that he has not been feeling well for weeks prior to admission, and had not been eating enough and has been losing weight. ALLERGIES: NO KNOWN DRUG ALLERGIES. MEDICATIONS: 1. Prescribed Prednisone at previous discharge, but did not start taking. PAST MEDICAL HISTORY: 1. Crohn's disease, not in regular care. 2. GERD. PAST SURGICAL HISTORY: 1. Bilateral inguinal hernia repairs as a child. 2. Small bowel resection x2 for Crohn's disease. FAMILY HISTORY: No known inflammatory bowel disease. Mother has atrial fibrillation and hyperthyroid. SOCIAL HISTORY: He lives with his girlfriend and kids. He does smoke a pack a day since age 18. He has occasional alcohol, but not recently. He does smoke marijuana regularly, and states it helps with his symptoms of nausea and abdominal pain. PHYSICAL EXAM: Temperature 37.0 equals T-max; blood pressure 101/57, pulse 124, respiratory rate 29, O2 saturation 93% on room air. General: Alert and oriented, very mildly tachypneic but otherwise in no distress while lying flat in his bed. He was resting, but is alert and coherent with questioning during my exam. HEENT: Head is normocephalic and atraumatic. Pupils are equal, round and reactive to light with extraocular motion intact. Conjunctivae clear with no icterus. Moist mucous membranes with no oropharyngeal lesions. NECK: Supple with no masses or lymphadenopathy. Trachea midline. LUNGS: Clear to auscultation bilaterally, again mild tachypnea but no accessory muscle use. HEART: Tachycardic, but regular without murmurs, gallops or rubs noted. ABDOMEN: Soft. Ostomy tissue looks healthy and has some green drainage. Not tender to gentle palpation. Dressing is clean, dry and intact and was not taken down to look at the wound. EXTREMITIES: Trace edema bilaterally to the shins. Legs are nontender to palpation. No large bruises or notable rashes. PSYCH: Mood and affect are normal. LABORATORY: Sodium 138, potassium 4.2, chloride 104, bicarbonate 25.4, BUN 18, creatinine 0.64, glucose of 47 with a.m. labs, lactate of 2.7 (down from 8.1 yesterday), calcium 7.4 with an albumin of 0.6 (corrected to 10); magnesium of 1.4, bilirubin of 0.67, AST of 70 (was 30 yesterday), ALT of 33, alkaline phosphatase of 47, total protein of 3.7; lipase was 36 on 07/07/2017. White blood cell count of 3.88 with 59% neutrophils (white blood cell count up from 2.13 on 07/07); hemoglobin of 8.1 (down from 9.2) with a hematocrit of 23.8 and MCV of 93.3, platelets of 121,000 (down from 152,000 on 07/07). Chest x-ray 07/07/2017 showing clear lungs and right internal jugular venous catheter placement. CT of the abdomen and pelvis 07/07/2017 showing pneumoperitoneum with moderate amounts of abdominopelvic ascites. Persistent dilated loops of small bowel in the right abdomen and thickening of the proximal small bowel. No liver or spleen abnormalities noted on CT. EKG with sinus tachycardia. Read as nonspecific T-wave abnormalities, but not significant to my reading.
--- NOTE | 2017-07-08 13:23 | PHARADMIT ---
Addendum entered by Atiya Lawson 07/10/17 11:22: Pharmacy Note Subjective Tender abdomen, although pain scale zero ? iscehmic bowel or leak, has ostomy Post-op day#3 Objective VS ok, lytes good for TPN Lactate level down to 1.6 H/H up 8.1/23.5, Plt down 51after 2 units blood Assessment No changes to TPN, only enough supplies in stock through 5pm on 07/11/17 Hospitalist consult, has combo of THC and Nicotine withdrawl....trying Marinol SL, capsules punctured and liquid placed under tongue since patient is NPO Plan Zosyn continues, CT scan today-results pending, surgeon feels might need more sugery or drainage, possible transfer to tertiary facility Original Note: Addendum entered by Yazan Perez III 07/09/17 14:34: Pharmacy Note Subjective MD concerned patient may be gpoing into metabolic acidosis. H&H, Plts dropping. Receiving transfusion x 2 Objective HR-95 RR-High (25-30) Na-135 K+3.9 Mag-2.3 Albumin-0.6 H&H-7.3/21.6 Plts-56 Assessment Venofer 100mg x 1 given, FolicAcid added to TPN, Vit 0.5mg sc q48hrs, ASA,Lovenox, Toradol dc'd. Zosyn continues, Hydroocortisone changed to Dexamethasone. Lasix 10mg IVP x 1 to help diurese & perhaps help H&H. Lorazepam IV for anxiety. Plan No hospitalist note. TPN MultiElectrolytes are added individually. AminoAcid/D10 bags on order for Tuesday. There is enough supply until then. Original Note: Admission Pharmacy Clinical Review Chrohn's, necrotic bowel Code Status Full Code Current Weight Wgt- 61.4 kg Renally Cleared and Narrow Therapeutic Index Meds CrCl~ 106 mL/min Meds-OK QTc Value / Action Taken QTc-449 na BP Control, Fever BP-98/58 Tmax-37.0C Electrolytes reviewed Na- 138 K+4.2 Mag- 1.4 DVT Prophylaxis LOVENOX 30mg Opiate Usage / Scheduled Bowel Regimen Ordered Yes No Plt/SCr for Heparin / Enoxaparin Plts-121 SCr-0.64 INR for Warfarin NA H/H stable, WBC/Bands H&H- 8.1/23.8 WBC- 3.66 Antibiotic appropriateness Zosyn Cultures and Sensitivities none Surgical ABX d/c within 24 hr lance DM control / Insulin Dosing BG-47 Heart Failure (Check EF%) (LAURIE's, B-Block, Diuretics) none IV to PO Switch No Home Meds Reviewed Yes Home Meds Not Ordered PREDNISONE Comments
--- NOTE | 2017-07-08 14:51 | PDOC.PROG_ITS ---
Date of Service: 07/08/17 Time of Service: 14:51 Assessment/Plan - Assessment/Plan (1) SBO (small bowel obstruction) Assessment: Ileus as expected however bowel sounds are present this afternoon-there were none this morning Abdomen remains nondistended UO adequate Plan: Continue as ordered for today Keep npo excepy ice chips until passong gas and stool well History of Present Illness - History of Present Illness History of Present Illness: Denies pain or sob,says he is comfortable Review of Systems - Medications/Allergies Allergies/Adverse Reactions: Allergies Allergy/AdvReac Type Severity Reaction Status Date / Time No Known Allergies Allergy Unverified 07/07/17 09:01 Medications: Current Medications Albuterol Sulfate (Proventil Updraft) 2.5 mg UPD Q2H PRN PRN Albuterol/Ipratropium (Duoneb Updraft) 3 ml UPD Q6H PRN PRN Dextrose/Water () 0 gm IVP DIRECTED PRN Last Admin: 07/08/17 08:43 Dose: 12.5 gm Dimethicone/Zinc Oxide (Pavel Protect Cream) 0 gm TP PRN PRN Enoxaparin Sodium (Lovenox) 30 mg SC Q24H [facility] Hydrocortisone (Solu-Cortef) 50 mg IVP Q8H [facility] Last Admin: 07/08/17 13:49 Dose: 50 mg Hydromorphone HCl (Dilaudid Injection) 1 mg IVP Q4H PRN PRN Acetaminophen 1,000 mg/ Device 100 mls @ 400 mls/hr IVPB Q8H [facility] Last Admin: 07/08/17 13:55 Dose: 400 mls/hr Piperacillin/Tazobactam/ (Dextrose 3.375 gm/ Device) 50 mls @ 100 mls/hr IVPB Q6H [facility] Last Admin: 07/08/17 10:09 Dose: 100 mls/hr Dextrose/Sodium Chloride (Dextrose 5%-0.45% Ns) 1,000 mls @ 150 mls/hr IV INFUSION [facility] Last Admin: 07/08/17 14:35 Dose: 150 mls/hr Fat Emulsion 250 ml/ Device 250 mls @ 31.25 mls/hr IV DAILY [facility] Last Admin: 07/08/17 11:48 Dose: 31.25 mls/hr Multivitamins 10 ml/ Chromium/Copper/Manganese/Zinc 1 ml/Potassium Chloride 20 meq/Magnesium Chloride 508 mg/Calcium Gluconate 4.5 meq/Sodium Acetate 29.5 meq/ Sodium Chloride 5.5 meq/ Amino Acids/Dextrose 1,049.3424 mls @ 85.917 mls/hr IV .BY DURATION [facility] Potassium Chloride 20 meq/Magnesium Chloride 508 mg/Calcium Gluconate 4.5 meq/ Sodium Acetate 29.5 meq/Sodium Chloride 5.5 meq/ Amino Acids/Dextrose 1, 038.3424 mls @ 85 mls/hr IV .BY DURATION [facility] IV Miscellaneous Supplies () 1 each IV DIRECTED [facility] Ketorolac Tromethamine (Toradol Injection) 30 mg IVP Q6H [facility] Stop: 07/12/17 17:59 Last Admin: 07/08/17 11:46 Dose: 30 mg Ondansetron HCl (Zofran Injection) 4 mg IVP Q4H PRN PRN Pantoprazole Sodium (Protonix Injection) 40 mg IVP DAILY [facility] Last Admin: 07/08/17 08:03 Dose: 40 mg Sodium Chloride (Saline Flush 10 Ml Syringe) 0 ml IVP PRN PRN Last Admin: 07/08/17 13:49 Dose: 20 ml Objective - Exam Vitals and I&O: Vital Signs Temp 36.6 C 07/08/17 13:30 Pulse 125 H 07/08/17 14:01 Resp 36 H 07/08/17 14:01 BP 111/68 07/08/17 14:01 Pulse Ox 94 L 07/08/17 14:01 Intake & Output 07/07/17 07/08/17 07/08/17 23:59 11:59 23:59 Intake Total 7124 3001 Output Total 1415 106 575 Balance 5702 1631 -579 Weight 56.2 kg 61.4 kg Intake: IV 7024 2871 Oral 100 130 Output: Gastric Drainage 550 200 Left Nare 550 200 Urine 725 375 375 Stool 90 105 Estimated Blood Loss 50 Other: Urine Color Dark Shahrzad Dark Shahrzad Light Shahrzad Dark Shahrzad Urine Appearance Cloudy Cloudy Clear Comment Emptied at this time for 250cc dark shahrzad urine. PH 6, SG 1.020, No blood,leuks, ketones. Cleaning draining light shahrzad urine. pH 6, SG 1.025, trace blood and ketones, 1+ protein, mod bilirubin. Gastric Occult Blood Left Nare Negative Positive Other physical findings: Abdomen is flat with a few bowel sounds Dressinmg is clean with no visible blood - Results Results: Laboratory Results WBC 3.66 k/cumm (4.4-10.8) L D 07/08/17 06:00 RBC 2.55 m/cumm (4.50-6.00) L 07/08/17 06:00 Hgb 8.1 g/dL (13.5-17.5) L 07/08/17 06:00 Hct 23.8 % (40.0-50.0) L 07/08/17 06:00 MCV 93.3 fL (80-95) 07/08/17 06:00 MCH 31.8 pg (27.0-33.0) 07/08/17 06:00 MCHC 34.0 g/dL (32.0-36.0) 07/08/17 06:00 RDW 13.3 % (11.8-14.1) 07/08/17 06:00 Plt Count 121 x1000/uL (130-400) L 07/08/17 06:00 MPV 10.8 fL (8.0-11.0) 07/08/17 06:00 Immature Gran % See Differential 07/08/17 06:00 Neutrophils % 59.0 07/08/17 06:00 Lymphocytes % 16.0 07/08/17 06:00 Monocytes % 3.0 07/08/17 06:00 Eosinophils % 1.0 07/08/17 06:00 Basophils % 0.0 07/08/17 06:00 Absolute Neutrophils 2.78 k/cumm (1.2-6.7) 07/08/17 06:00 Band Neutrophils 17.0 % 07/08/17 06:00 Absolute Lymphocytes 0.59 k/cumm (1.2-3.4) L 07/08/17 06:00 Absolute Monocytes 0.11 k/cumm (0.11-0.7) 07/08/17 06:00 Absolute Eosinophils 0.04 k/cumm (0.0-0.7) 07/08/17 06:00 Absolute Basophils 0.00 k/cumm (0.0-0.2) 07/08/17 06:00 Metamyelocytes 4.0 % 07/08/17 06:00 Myelocytes 5.0 % 07/07/17 08:45 Differential Comment Manual differential 07/08/17 06:00 Atypical Lymphocytes 7 07/07/17 13:20 RBC Morphology See below 07/07/17 13:20 Polychromasia Present 07/07/17 13:20 Poikilocytosis 2+ 07/08/17 06:00 Microcytosis 1+ 07/08/17 06:00 Sample Site Arterial line 07/07/17 17:25 pCO2 36 mmHg (34-47) 07/07/17 17:25 pO2 85 mmHg (83-108) 07/07/17 17:25 O2 Saturation 96 % (94-98) 07/07/17 17:25 ABG pH 7.42 (7.35-7.45) 07/07/17 17:25 ABG HCO3 23 mmol/L (22-28) 07/07/17 17:25 ABG Total CO2 22 mmol/L (22-29) 07/07/17 17:25 ABG Base Excess -1.3 mmol/L (-3-3) 07/07/17 17:25 Oxygen Liter Flow Unknown/not given L 07/07/17 11:08 Sodium 138 mmol/L (136-145) 07/08/17 06:00 Potassium 4.2 mmol/L (3.5-5.1) 07/08/17 06:00 Chloride 104 mmol/L (98-107) 07/08/17 06:00 Carbon Dioxide 25.4 mmol/L (21.0-32.0) 07/08/17 06:00 Anion Gap 8.6 mmol/L (3-11) 07/08/17 06:00 BUN 18 mg/dL (7-18) D 07/08/17 06:00 Creatinine 0.64 mg/dL (0.70-1.30) L 07/08/17 06:00 Estimated GFR/1.73 m2 >= 60.00 (mL/min/1.73m2) 07/08/17 06:00 Glucose 47 mg/dL (70-100) L 07/08/17 06:00 Lactate 2.7 mmol/L (0.6-1.4) H 07/08/17 07:50 Calcium 7.4 mg/dL (8.5-10.1) L 07/08/17 06:00 Magnesium 1.4 mg/dL (1.8-2.4) L 07/08/17 06:00 Total Bilirubin 0.67 mg/dL (0.2-1.0) 07/08/17 06:00 AST 70 U/L (15-37) H 07/08/17 06:00 ALT 33 U/L (16-63) 07/08/17 06:00 Alkaline Phosphatase 47 U/L (46-116) 07/08/17 06:00 Total Protein 3.7 g/dL (6.4-8.2) L 07/08/17 06:00 Albumin 0.6 g/dL (3.4-5.0) L 07/08/17 06:00 Lipase 36 U/L (73-393) L 07/07/17 08:45 Patient ABO/Rh B Positive 07/07/17 10:08 Antibody Screen Negative 07/07/17 10:08
[2017-07-08] MEDS: Enoxaparin 30 MG/0.3 ML SYR SC (18:07)
[2017-07-08] MEDS: LORazepam 2 MG/ML VIAL 1 MG IVP (21:09)
[2017-07-09] VITALS (80 sets, daily range): BP systolic 108–146; BP diastolic 69–91; PULSE 82–115; RESP 21–42; TEMP 35.9–37.5; O2SAT 94–100
[2017-07-09] MEDS: Normal Saline Flush 10 ML SYR IVP ×5 (00:41→20:15)
[2017-07-09] MEDS: Ketorolac 30 MG/ML VIAL IVP ×2 (00:41→05:48)
[2017-07-09] MEDS: Hydrocortisone SOD SUC. 100 MG VIAL 50 MG IVP (05:48)
[2017-07-09 06:49] LABS: HCT 21.6 % (40.0-50.0); HGB 7.3 g/dL (13.5-17.5); Mean Corp. HGB Concentration 33.8 g/dL (32.0-36.0); Mean Corpuscular Hemoglobin 31.9 pg (27.0-33.0); Mean Corpuscular Volume 94.3 fL (80-95); Mean Platelet Volume 11.3 fL (8.0-11.0); RBC 2.29 m/cumm (4.50-6.00); RBC Distribution Width 13.3 % (11.8-14.1); White Blood Cell Count 2.87 k/cumm (4.4-10.8)
[2017-07-09 06:53] LABS: INR 1.3 (1.0-3.5); Prothrombin Time 12.2 sec (9.3-10.8)
[2017-07-09 06:55] LABS: Iron 13 ug/dL (50-175); Total Iron Binding Capacity 45 ug/dL (250-450); Transferrin Sat 29 % (20-55)
[2017-07-09 07:06] LABS: ALT 32 U/L (16-63); AST 46 U/L (15-37); Alkaline Phosphatase 55 U/L (46-116); Anion Gap 5.5 mmol/L (3-11); BUN 18 mg/dL (7-18); Bilirubin, Total 0.67 mg/dL (0.2-1.0); CO2 28.5 mmol/L (21.0-32.0); CREATININE 0.56 mg/dL (0.70-1.30); Calcium 7.7 mg/dL (8.5-10.1); Chloride 101 mmol/L (98-107); Glucose 146 mg/dL (70-100); Magnesium 2.3 mg/dL (1.8-2.4); Potassium 3.9 mmol/L (3.5-5.1); Sodium 135 mmol/L (136-145); TSH (W/Ref FT4) 1.29 uIU/mL (0.358-3.74); Total Protein 4.1 g/dL (6.4-8.2)
[2017-07-09 07:15] LABS: Platelet Count 56 x1000/uL (130-400)
[2017-07-09 07:16] LABS: Absolute Lymphocyte Count 0.52 k/cumm (1.2-3.4); Absolute Monocyte Count 0.03 k/cumm (0.11-0.7); Albumin 0.6 g/dL (3.4-5.0)
[2017-07-09 07:18] LABS: Diff Comment Manual Differential
[2017-07-09 07:21] LABS: Vitamin B12 > 1000 pg/mL (193-986)
[2017-07-09 07:22] LABS: Hypochromasia 1+; Polychromasia Present
[2017-07-09 07:23] LABS: Poikilocytes 1+
--- NOTE | 2017-07-09 08:27 | DI.REPORT_ITS ---
SYMPTOM/DIAGNOSIS: TACHYPNEA PORTABLE AP CHEST AT 0842 HOURS: Note is again made of NG tube and right internal jugular vein catheter in position. Pneumoperitoneum again noted in a patient who is status post recent abdominal surgery. Significant right basilar atelectasis appears to be present , increased from examination of 07/07. The lungs otherwise appear clear.
[2017-07-09] MEDS: Pantoprazole 40 MG VIAL IVP ×2 (08:31→20:14)
--- NOTE | 2017-07-09 09:05 | DI.VRAD_ITS ---
EXAM: XR Chest, 1 View EXAM DATE/TIME: 07/09/2017 8:28 AM CLINICAL HISTORY: 42 years old, male; Signs and symptoms; Tachypnea TECHNIQUE: Frontal view of the chest. COMPARISON: CR - PORTABLE AP CHEST, POST LINE 2017-07-07 14:20 FINDINGS: Single portable semiupright chest film demonstrates large free intra-abdominal air also extending into the mediastinal space. Nasogastric tube tip overlying stomach. Right central line tip in right atrium. Multiple overlying cardiac monitoring leads. No pneumothorax. Lungs clear. Cardiac silhouette nonenlarged. Airway unremarkable. Bones unremarkable. IMPRESSION: 1. Persistent pneumoperitoneum with mediastinal air as well. 2. Tubes and lines unchanged. Dictated and Authenticated by: Jared Maldonado MD. Ordering:ILA GAINES MD
[2017-07-09 09:16] LABS: BE 5.9 mmol/L (-3-3); HCO3 29 mmol/L (22-28); pCO2 37 mmHg (34-47); pO2 78 mmHg (83-108); sO2 96 % (94-98); tCO2 28 mmol/L (22-29)
[2017-07-09 09:17] LABS: Lactate-non-spesis 1.9 mmol/L (0.6-1.4); Site Arterial Line
[2017-07-09 09:18] LABS: FIO2 28 %; FIO2L Nasal Cannula L
[2017-07-09 09:55] LABS: Folate 2.4 ng/mL (8.6-20.0)
[2017-07-09 10:04] LABS: Ferritin > 2000 ng/mL (8-388)
[2017-07-09] MEDS: LORazepam 2 MG/ML VIAL 1 MG IVP ×2 (10:13→22:29)
[2017-07-09 10:23] LABS: Bilirubin Large (Negative); Blood Trace-intact (Negative); Clarity Clear; Glucose Negative (Negative); Ketones Negative (Negative); Leukocyte Esterase Negative (Negative); Nitrite Negative (Negative); Specific Gravity 1.015 (1.005-1.025); pH 6.5 (5-8)
--- NOTE | 2017-07-09 10:29 | PDOC.PROG ---
Date of Service: 07/09/17 Time of Service: 10:29 Assessment/Plan - Assessment/Plan (1) SBO (small bowel obstruction) Assessment: Incresed respiratory rate thuis am of undetermined etiology Suspect due to fluid overload combined with anxiety and decreased lung volume Right hemidiaphragm is high There is persistent mediastinal air He denies chest pain-doubt esophageal perf and mediastinal air was present preop-most likely due to intraabd perforation Air in peritoneal cavity at this point two days after surgery is edward unexpected and would be no reason for alarm presently Even though lungs are clear suspect pt is volume loaded and diruesis may improve his RR and his Hct Have discussed giving a small dose of Lasix --10mg iv now Hgb is &.3-hospitalist has ordered transfusion--do not disagree in this very sick patient however suspect diuresis may improve his Hct Ileus is expected at thius point Plan: Strict npo Touch with 10mg Lasix now NG tube to low intermittent suction(hospitalist requested in attemot to ameliorate metabolic alkalosis)-too early to dc NG tube presently Ativan for anxiety Have ordered aggressive respiratory therapy OOB in chair as tolerated History of Present Illness - History of Present Illness Chief Complaint: Is SOB this am, c/o more abdominal pain laterally today as compared to yes Review of Systems - Review of Systems Other: Feeld SOB this am, has more abd pain than yesterday bilaterally - Medications/Allergies Allergies/Adverse Reactions: Allergies Allergy/AdvReac Type Severity Reaction Status Date / Time No Known Allergies Allergy Unverified 07/07/17 09:01 Medications: Current Medications Albuterol Sulfate (Proventil Updraft) 2.5 mg UPD Q2H PRN PRN Albuterol/Ipratropium (Duoneb Updraft) 3 ml UPD Q6H PRN PRN Dexamethasone (Decadron Phosphate) 4 mg IVP BID [facility] Dextrose/Water () 0 gm IVP DIRECTED PRN Last Admin: 07/08/17 08:43 Dose: 12.5 gm Dimethicone/Zinc Oxide (Pavel Protect Cream) 0 gm TP PRN PRN Hydromorphone HCl (Dilaudid Injection) 1 mg IVP Q4H PRN PRN Acetaminophen 1,000 mg/ Device 100 mls @ 400 mls/hr IVPB Q8H [facility] Last Admin: 07/09/17 05:49 Dose: 400 mls/hr Piperacillin/Tazobactam/ (Dextrose 3.375 gm/ Device) 50 mls @ 100 mls/hr IVPB Q6H [facility] Last Admin: 07/09/17 03:56 Dose: 100 mls/hr Fat Emulsion 250 ml/ Device 250 mls @ 31.25 mls/hr IV DAILY [facility] Last Admin: 07/09/17 08:33 Dose: 31.25 mls/hr Multivitamins 10 ml/ Chromium/Copper/Manganese/Zinc 1 ml/Potassium Chloride 20 meq/Magnesium Chloride 508 mg/Calcium Gluconate 4.5 meq/Sodium Acetate 29.5 meq/Sodium Chloride 5.5 meq/ Amino Acids/Dextrose 1,049.3424 mls @ 85.917 mls/hr IV .BY DURATION [facility] Last Admin: 07/08/17 18:12 Dose: 85.917 mls/hr Potassium Chloride 20 meq/Magnesium Chloride 508 mg/Calcium Gluconate 4.5 meq/Sodium Acetate 29.5 meq/Sodium Chloride 5.5 meq/ Amino Acids/Dextrose 1,038.3424 mls @ 85 mls/hr IV .BY DURATION [facility] Last Admin: 07/09/17 05:49 Dose: 85 mls/hr IV Miscellaneous Supplies () 1 each IV DIRECTED [facility] Lorazepam (Ativan Injection) 1 mg IVP Q4H PRN PRN Reason: Insomnia Last Admin: 07/09/17 10:13 Dose: 1 mg Ondansetron HCl (Zofran Injection) 4 mg IVP Q4H PRN PRN Pantoprazole Sodium (Protonix Injection) 40 mg IVP BID [facility] Sodium Chloride (Saline Flush 10 Ml Syringe) 0 ml IVP PRN PRN Last Admin: 07/09/17 08:32 Dose: 50 ml Objective - Exam Vitals and I&O: Vital Signs Temp 36.2 C L 07/09/17 08:05 Pulse 99 H 07/09/17 08:05 Resp 35 H 07/09/17 08:00 BP 138/75 07/09/17 09:00 Pulse Ox 96 07/09/17 09:09 Intake & Output 07/08/17 07/08/17 07/09/17 11:59 23:59 11:59 Intake Total 3001 1752 1498 Output Total 480 1780 1275 Balance 2521 -28 223 Weight 61.4 kg 58.3 kg Intake: IV 2871 1652 1098 Oral 130 100 400 Output: Gastric Drainage 850 850 Left Nare 850 850 Urine 375 825 400 Stool 105 105 25 Other: Urine Color Dark Dilia Light Dilia Light Dilia Urine Appearance Cloudy Clear Clear Comment Cleaning draining light dilia urine. pH 6, SG 1.025, trace blood and ketones, 1+ protein, mod bilirubin. Cleaning intact and draining clear urine. Cleaning intact and draining clear dilia urine. Gastric Occult Blood Left Nare Positive Positive Positive General: Alert, Cooperative, Mild distress HEENT: Mucous membr. moist/pink Lungs: Clear to auscultation Cardiovascular: Regular rate Abdomen: Other Neurological: Normal speech Psych/Mental Status: Other (seems anxious) Other physical findings: Abdomen is more distended than yesterday, bowel sounds are present but decreased, there is some tenderness laterally on boith sides of abdomen, abdomen is not as soft as it was yesterday, no peritioneal signs Dressing is intact with no visible blood or pus Stoma has healthy appearring pink mucosa Small amount of liquid stool in bag - Results Results: Laboratory Results WBC 2.87 k/cumm (4.4-10.8) L 07/09/17 06:13 RBC 2.29 m/cumm (4.50-6.00) L 07/09/17 06:13 Hgb 7.3 g/dL (13.5-17.5) L 07/09/17 06:13 Hct 21.6 % (40.0-50.0) L 07/09/17 06:13 MCV 94.3 fL (80-95) 07/09/17 06:13 MCH 31.9 pg (27.0-33.0) 07/09/17 06:13 MCHC 33.8 g/dL (32.0-36.0) 07/09/17 06:13 RDW 13.3 % (11.8-14.1) 07/09/17 06:13 Plt Count 56 x1000/uL (130-400) L D 07/09/17 06:13 MPV 11.3 fL (8.0-11.0) H 07/09/17 06:13 Immature Gran % See Differential 07/09/17 06:13 Neutrophils % 66.0 07/09/17 06:13 Lymphocytes % 18.0 07/09/17 06:13 Monocytes % 1.0 07/09/17 06:13 Eosinophils % 0.0 07/09/17 06:13 Basophils % 0.0 07/09/17 06:13 Absolute Neutrophils 2.30 k/cumm (1.2-6.7) 07/09/17 06:13 Band Neutrophils 14.0 % 07/09/17 06:13 Absolute Lymphocytes 0.52 k/cumm (1.2-3.4) L 07/09/17 06:13 Absolute Monocytes 0.03 k/cumm (0.11-0.7) L 07/09/17 06:13 Absolute Eosinophils 0.00 k/cumm (0.0-0.7) 07/09/17 06:13 Absolute Basophils 0.00 k/cumm (0.0-0.2) 07/09/17 06:13 Metamyelocytes 1.0 % 07/09/17 06:13 Myelocytes 5.0 % 07/07/17 08:45 Differential Comment Manual differential 07/09/17 06:13 Atypical Lymphocytes 7 07/07/17 13:20 RBC Morphology See below 07/09/17 06:13 Polychromasia Present 07/09/17 06:13 Hypochromasia 1+ 07/09/17 06:13 Poikilocytosis 1+ 07/09/17 06:13 Microcytosis 1+ 07/08/17 06:00 PT 12.2 sec (9.3-10.8) H 07/09/17 06:13 INR 1.3 (1.0-3.5) 07/09/17 06:13 Sample Site Arterial line 07/09/17 09:09 pCO2 37 mmHg (34-47) 07/09/17 09:09 pO2 78 mmHg (83-108) L 07/09/17 09:09 O2 Saturation 96 % (94-98) 07/09/17 09:09 ABG pH 7.50 (7.35-7.45) H 07/09/17 09:09 ABG HCO3 29 mmol/L (22-28) H 07/09/17 09:09 ABG Total CO2 28 mmol/L (22-29) 07/09/17 09:09 ABG Base Excess 5.9 mmol/L (-3-3) H 07/09/17 09:09 Oxygen Liter Flow Nasal cannula L 07/09/17 09:09 FiO2 28 % 07/09/17 09:09 Sodium 135 mmol/L (136-145) L 07/09/17 06:13 Potassium 3.9 mmol/L (3.5-5.1) 07/09/17 06:13 Chloride 101 mmol/L (98-107) 07/09/17 06:13 Carbon Dioxide 28.5 mmol/L (21.0-32.0) 07/09/17 06:13 Anion Gap 5.5 mmol/L (3-11) 07/09/17 06:13 BUN 18 mg/dL (7-18) 07/09/17 06:13 Creatinine 0.56 mg/dL (0.70-1.30) L 07/09/17 06:13 Estimated GFR/1.73 m2 >= 60.00 (mL/min/1.73m2) 07/09/17 06:13 Glucose 146 mg/dL (70-100) H D 07/09/17 06:13 Lactate 1.9 mmol/L (0.6-1.4) H 07/09/17 09:09 Calcium 7.7 mg/dL (8.5-10.1) L 07/09/17 06:13 Magnesium 2.3 mg/dL (1.8-2.4) 07/09/17 06:13 Iron 13 ug/dL (50-175) L 07/09/17 06:13 TIBC 45 ug/dL (250-450) L 07/09/17 06:13 Transferrin % Sat 29 % (20-55) 07/09/17 06:13 Ferritin > 2000 ng/mL (8-388) H 07/09/17 06:13 Total Bilirubin 0.67 mg/dL (0.2-1.0) 07/09/17 06:13 AST 46 U/L (15-37) H 07/09/17 06:13 ALT 32 U/L (16-63) 07/09/17 06:13 Alkaline Phosphatase 55 U/L (46-116) 07/09/17 06:13 Total Protein 4.1 g/dL (6.4-8.2) L 07/09/17 06:13 Albumin 0.6 g/dL (3.4-5.0) L 07/09/17 06:13 Lipase 36 U/L (73-393) L 07/07/17 08:45 Vitamin B12 > 1000 pg/mL (193-986) H 07/09/17 06:13 Folate 2.4 ng/mL (8.6-20.0) L 07/09/17 06:13 TSH 1.29 uIU/mL (0.358-3.74) 07/09/17 06:13 Patient ABO/Rh B Positive 07/07/17 10:08 Antibody Screen Negative 07/07/17 10:08 Crossmatch See Detail 07/07/17 10:08
[2017-07-09 10:33] LABS: *AMPHETAMINES SCREEN URINE Negative (Negative); *BARBITURATES SCREEN URINE Negative (Negative); *BENZODIAZEPINES SCREEN URINE Negative (Negative); Cannabinoids THC POSITIVE (Negative); Cocaine Screen,Urine Negative (Negative); METHADONE URINE SCREEN Negative (Negative); OPIATES URINE SCREEN Negative (Negative)
[2017-07-09 10:36] LABS: Tricyclic Antidepressants Negative (Negative)
[2017-07-09 10:38] LABS: Bacteria Negative HPF (Negative); Casts 3-5 Fine Granular LPF (Negative); Crystals Few Amorphous HPF (Negative); Epithelial Cells Negative HPF (Negative); Mucus Negative (Negative); WBC 0-2 HPF (0-5)
[2017-07-09 10:39] LABS: C & S Indicated? No
[2017-07-09] MEDS: Nicotine 21 MG/24 HR PATCH TD (11:15)
[2017-07-09] MEDS: Furosemide 20 MG/2 ML VIAL 10 MG IVP (11:16)
[2017-07-09 11:47] LABS: NT-proBNP 211 pg/mL
[2017-07-09] MEDS: Phytonadione 1 MG/0.5 ML AMP 0.5 MG SC (13:23)
--- NOTE | 2017-07-09 15:43 | PDOC.CMPRO ---
Care Management Progress Note S/O: Aditya stated he would like support in making a community based follow up plan for resources. He felt yesterday he was finally on the mend but reported concerns around his lab values and reported Aditya would likely require a transfusion today and may require transfer if he does not improve clinically. CM will continue to follow, and support Aditya in outpatient follow up considerations. A: 42 year old male admitted to [facility] 07/09/17 for Crohn's with Necrotic Bowel P: Aditya will remain at ICU level of care at this time and may transfer if he does not make gains clinically. He began TPN for nutrition and continues to be monitored. When able, CM will support Aditya in completing new patient paperwork and fax to [facility]. CM will continue to support Aditya and discharge planning considerations.
--- NOTE | 2017-07-09 15:47 | CMPROGNOTE_ITS ---
Care Management Progress Note S/O: Aditya stated he would like support in making a community based follow up plan for resources. He felt yesterday he was finally on the mend but reported concerns around his lab values and reported Aditya would likely require a transfusion today and may require transfer if he does not improve clinically. CM will continue to follow, and support Aditya in outpatient follow up considerations. A: 42 year old male admitted to [facility] 07/09/17 for Crohn's with Necrotic Bowel P: Aditya will remain at ICU level of care at this time and may transfer if he does not make gains clinically. He began TPN for nutrition and continues to be monitored. When able, CM will support Aditya in completing new patient paperwork and fax to [facility]. CM will continue to support Aditya and discharge planning considerations.
--- NOTE | 2017-07-09 17:12 | PDOC.PROG_ITS ---
Date of Service: 07/09/17 Time of Service: 17:10 Assessment/Plan - Assessment/Plan (1) SBO (small bowel obstruction) Assessment: Ileus as expected 4350cc of UO thus far since aLasix SOB prob due to a variety of factors including pain, anxiety and perhaps increased volume Plan: As previously ordered History of Present Illness - History of Present Illness Chief Complaint: Says he is comfortable and not as short of breath as this am Review of Systems - Medications/Allergies Allergies/Adverse Reactions: Allergies Allergy/AdvReac Type Severity Reaction Status Date / Time No Known Allergies Allergy Unverified 07/07/17 09:01 Medications: Current Medications Albuterol Sulfate (Proventil Updraft) 2.5 mg UPD Q2H PRN PRN Albuterol/Ipratropium (Duoneb Updraft) 3 ml UPD Q6H PRN PRN Dexamethasone (Decadron Phosphate) 4 mg IVP BID [facility] Dextrose/Water () 0 gm IVP DIRECTED PRN Last Admin: 07/08/17 08:43 Dose: 12.5 gm Dimethicone/Zinc Oxide (Pavel Protect Cream) 0 gm TP PRN PRN Hydromorphone HCl (Dilaudid Injection) 1 mg IVP Q4H PRN PRN Acetaminophen 1,000 mg/ Device 100 mls @ 400 mls/hr IVPB Q8H [facility] Last Admin: 07/09/17 14:50 Dose: 400 mls/hr Piperacillin/Tazobactam/ (Dextrose 3.375 gm/ Device) 50 mls @ 100 mls/hr IVPB Q6H [facility] Last Admin: 07/09/17 16:38 Dose: 100 mls/hr Fat Emulsion 250 ml/ Device 250 mls @ 31.25 mls/hr IV DAILY [facility] Last Admin: 07/09/17 08:33 Dose: 31.25 mls/hr Multivitamins 10 ml/ Chromium/Copper/Manganese/Zinc 1 ml/Potassium Chloride 20 meq/Magnesium Chloride 508 mg/Calcium Gluconate 4.5 meq/Sodium Acetate 29.5 meq/ Sodium Chloride 5.5 meq/ Folic Acid 1 mg/ Amino Acids/Dextrose 1,049.5424 mls @ 85.917 mls/hr IV .BY DURATION [facility] Potassium Chloride 20 meq/Magnesium Chloride 508 mg/Calcium Gluconate 4.5 meq/ Sodium Acetate 29.5 meq/Sodium Chloride 5.5 meq/ Amino Acids/Dextrose 1, 038.3424 mls @ 85 mls/hr IV .BY DURATION [facility] IV Miscellaneous Supplies () 1 each IV DIRECTED [facility] Lorazepam (Ativan Injection) 1 mg IVP Q4H PRN PRN Reason: Insomnia Last Admin: 07/09/17 10:13 Dose: 1 mg Nicotine (Nicoderm Cq) 21 mg TD DAILY [facility] Last Admin: 07/09/17 11:15 Dose: 21 mg Ondansetron HCl (Zofran Injection) 4 mg IVP Q4H PRN PRN Pantoprazole Sodium (Protonix Injection) 40 mg IVP BID [facility] Phytonadione (Vitamin K (Aqua-Mephyton)) 0.5 mg SC Q48H [facility] Last Admin: 07/09/17 13:23 Dose: 0.5 mg Sodium Chloride (Saline Flush 10 Ml Syringe) 0 ml IVP PRN PRN Last Admin: 07/09/17 08:32 Dose: 50 ml Objective - Exam Vitals and I&O: Vital Signs Temp 35.9 C L 07/09/17 16:06 Pulse 91 H 07/09/17 16:06 Resp 31 H 07/09/17 16:06 BP 123/86 07/09/17 16:06 Pulse Ox 98 07/09/17 16:06 Intake & Output 07/08/17 07/09/17 07/09/17 23:59 11:59 23:59 Intake Total 1752 1623 1794 Output Total 1780 1275 975 Balance -28 348 819 Weight 58.3 kg Intake: IV 1652 1098 968 Oral 100 525 125 Blood Product 701 Rbc Leuko Reduced Unit 375 [id number] Rbc Leuko Reduced Unit 326 [id number]* Output: Gastric Drainage 850 850 550 Left Nare 850 850 550 Urine 825 400 425 Stool 105 25 Other: Urine Color Light Shahrzad Light Shahrzad Dark Shahrzad Urine Appearance Clear Clear Clear Comment Cleaning intact and draining clear urine. Cleaning intact and draining clear shahrzad urine. Cleaning intact and draining clear shahrzad urine. Gastric Occult Blood Left Nare Positive Positive Abdomen: Tenderness, Other (Abdoman with minidistention but less so than this am. stoma pink, bs present and hypoactive) - Results Results: Laboratory Results WBC 2.87 k/cumm (4.4-10.8) L 07/09/17 06:13 RBC 2.29 m/cumm (4.50-6.00) L 07/09/17 06:13 Hgb 7.3 g/dL (13.5-17.5) L 07/09/17 06:13 Hct 21.6 % (40.0-50.0) L 07/09/17 06:13 MCV 94.3 fL (80-95) 07/09/17 06:13 MCH 31.9 pg (27.0-33.0) 07/09/17 06:13 MCHC 33.8 g/dL (32.0-36.0) 07/09/17 06:13 RDW 13.3 % (11.8-14.1) 07/09/17 06:13 Plt Count 56 x1000/uL (130-400) L D 07/09/17 06:13 MPV 11.3 fL (8.0-11.0) H 07/09/17 06:13 Immature Gran % See Differential 07/09/17 06:13 Neutrophils % 66.0 07/09/17 06:13 Lymphocytes % 18.0 07/09/17 06:13 Monocytes % 1.0 07/09/17 06:13 Eosinophils % 0.0 07/09/17 06:13 Basophils % 0.0 07/09/17 06:13 Absolute Neutrophils 2.30 k/cumm (1.2-6.7) 07/09/17 06:13 Band Neutrophils 14.0 % 07/09/17 06:13 Absolute Lymphocytes 0.52 k/cumm (1.2-3.4) L 07/09/17 06:13 Absolute Monocytes 0.03 k/cumm (0.11-0.7) L 07/09/17 06:13 Absolute Eosinophils 0.00 k/cumm (0.0-0.7) 07/09/17 06:13 Absolute Basophils 0.00 k/cumm (0.0-0.2) 07/09/17 06:13 Metamyelocytes 1.0 % 07/09/17 06:13 Myelocytes 5.0 % 07/07/17 08:45 Differential Comment Manual differential 07/09/17 06:13 Atypical Lymphocytes 7 07/07/17 13:20 RBC Morphology See below 07/09/17 06:13 Polychromasia Present 07/09/17 06:13 Hypochromasia 1+ 07/09/17 06:13 Poikilocytosis 1+ 07/09/17 06:13 Microcytosis 1+ 07/08/17 06:00 PT 12.2 sec (9.3-10.8) H 07/09/17 06:13 INR 1.3 (1.0-3.5) 07/09/17 06:13 Sample Site Arterial line 07/09/17 09:09 pCO2 37 mmHg (34-47) 07/09/17 09:09 pO2 78 mmHg (83-108) L 07/09/17 09:09 O2 Saturation 96 % (94-98) 07/09/17 09:09 ABG pH 7.50 (7.35-7.45) H 07/09/17 09:09 ABG HCO3 29 mmol/L (22-28) H 07/09/17 09:09 ABG Total CO2 28 mmol/L (22-29) 07/09/17 09:09 ABG Base Excess 5.9 mmol/L (-3-3) H 07/09/17 09:09 Oxygen Liter Flow Nasal cannula L 07/09/17 09:09 FiO2 28 % 07/09/17 09:09 Sodium 135 mmol/L (136-145) L 07/09/17 06:13 Potassium 3.9 mmol/L (3.5-5.1) 07/09/17 06:13 Chloride 101 mmol/L (98-107) 07/09/17 06:13 Carbon Dioxide 28.5 mmol/L (21.0-32.0) 07/09/17 06:13 Anion Gap 5.5 mmol/L (3-11) 07/09/17 06:13 BUN 18 mg/dL (7-18) 07/09/17 06:13 Creatinine 0.56 mg/dL (0.70-1.30) L 07/09/17 06:13 Estimated GFR/1.73 m2 >= 60.00 (mL/min/1.73m2) 07/09/17 06:13 Glucose 146 mg/dL (70-100) H D 07/09/17 06:13 Lactate 1.9 mmol/L (0.6-1.4) H 07/09/17 09:09 Calcium 7.7 mg/dL (8.5-10.1) L 07/09/17 06:13 Magnesium 2.3 mg/dL (1.8-2.4) 07/09/17 06:13 Iron 13 ug/dL (50-175) L 07/09/17 06:13 TIBC 45 ug/dL (250-450) L 07/09/17 06:13 Transferrin % Sat 29 % (20-55) 07/09/17 06:13 Ferritin > 2000 ng/mL (8-388) H 07/09/17 06:13 Total Bilirubin 0.67 mg/dL (0.2-1.0) 07/09/17 06:13 AST 46 U/L (15-37) H 07/09/17 06:13 ALT 32 U/L (16-63) 07/09/17 06:13 Alkaline Phosphatase 55 U/L (46-116) 07/09/17 06:13 NT-Pro-B Natriuret Pep 211 pg/mL (-299) 07/09/17 06:13 Total Protein 4.1 g/dL (6.4-8.2) L 07/09/17 06:13 Albumin 0.6 g/dL (3.4-5.0) L 07/09/17 06:13 Lipase 36 U/L (73-393) L 07/07/17 08:45 Vitamin B12 > 1000 pg/mL (193-986) H 07/09/17 06:13 Folate 2.4 ng/mL (8.6-20.0) L 07/09/17 06:13 TSH 1.29 uIU/mL (0.358-3.74) 07/09/17 06:13 Urine Color Dark yellow (Yellow) 07/09/17 09:48 Urine Clarity Clear 07/09/17 09:48 Urine pH 6.5 (5-8) 07/09/17 09:48 Ur Specific [place] 1.015 (1.005-1.025) 07/09/17 09:48 Urine Protein Trace mg/dL (Negative) H 07/09/17 09:48 Urine Ketones Negative mg/dL (Negative) 07/09/17 09:48 Urine Blood Trace-intact (Negative) H 07/09/17 09:48 Urine Nitrite Negative (Negative) 07/09/17 09:48 Urine Bilirubin Large (Negative) H 07/09/17 09:48 Urine Urobilinogen 1.0 EU/dL (Up TO 0.2) H 07/09/17 09:48 Ur Leukocyte Esterase Negative (Negative) 07/09/17 09:48 Urine RBC 3-5 (0-2) H 07/09/17 09:48 Urine WBC 0-2 HPF (0-5) 07/09/17 09:48 Ur Epithelial Cells Negative HPF (Negative) 07/09/17 09:48 Urine Crystals Few amorphous HPF (Negative) 07/09/17 09:48 Urine Bacteria Negative HPF (Negative) 07/09/17 09:48 Urine Casts 3-5 fine granular LPF (Negative) 07/09/17 09:48 Urine Mucus Negative (Negative) 07/09/17 09:48 Ur Culture Indicated? No 07/09/17 09:48 Urine Glucose Negative mg/dL (Negative) 07/09/17 09:48 Urine Opiates Screen Negative (Negative) 07/09/17 09:48 Urine Methadone Screen Negative (Negative) 07/09/17 09:48 Ur Barbiturates Screen Negative (Negative) 07/09/17 09:48 Ur Tricyclics Screen Negative (Negative) 07/09/17 09:48 Ur Amphetamines Screen Negative (Negative) 07/09/17 09:48 U Benzodiazepines Scrn Negative (Negative) 07/09/17 09:48 Urine Cocaine Screen Negative (Negative) 07/09/17 09:48 Ur THC Screen Positive (Negative) 07/09/17 09:48 Patient ABO/Rh B Positive 07/07/17 10:08 Antibody Screen Negative 07/07/17 10:08 Crossmatch See Detail 07/07/17 10:08
[2017-07-09] MEDS: IRON SUCROSE COMPLEX 100 MG in Normal Saline 100 ML 420 MG IVPB (17:39)
[2017-07-09] MEDS: Dexamethasone 4 MG/ML VIAL IVP (20:14)
[2017-07-09] MEDS: Ondansetron 4 MG/2 ML VIAL IVP (22:30)
[2017-07-10] VITALS (19 sets, daily range): BP systolic 99–143; BP diastolic 70–91; PULSE 79–137; RESP 19–37; TEMP 37; O2SAT 94–100
[2017-07-10] MEDS: Normal Saline Flush 10 ML SYR IVP ×2 (05:07→09:14)
[2017-07-10] MEDS: LORazepam 2 MG/ML VIAL 1 MG IVP (05:07)
[2017-07-10 07:20] LABS: Lactate-non-spesis 1.6 mmol/L (0.6-1.4)
[2017-07-10 07:24] LABS: Abs Immature Grans 0.35 k/cumm (0.0-0.09); HCT 23.5 % (40.0-50.0); HGB 8.1 g/dL (13.5-17.5); Mean Corp. HGB Concentration 34.5 g/dL (32.0-36.0); Mean Corpuscular Hemoglobin 31.5 pg (27.0-33.0); Mean Corpuscular Volume 91.4 fL (80-95); Mean Platelet Volume 11.6 fL (8.0-11.0); RBC 2.57 m/cumm (4.50-6.00); RBC Distribution Width 13.8 % (11.8-14.1); White Blood Cell Count 4.13 k/cumm (4.4-10.8)
[2017-07-10 07:27] LABS: ALT 27 U/L (16-63); AST 40 U/L (15-37); Albumin 0.6 g/dL (3.4-5.0); Alkaline Phosphatase 61 U/L (46-116); Anion Gap 2.3 mmol/L (3-11); BUN 19 mg/dL (7-18); Bilirubin, Total 1.06 mg/dL (0.2-1.0); CO2 30.7 mmol/L (21.0-32.0); CREATININE 0.48 mg/dL (0.70-1.30); Calcium 7.8 mg/dL (8.5-10.1); Chloride 100 mmol/L (98-107); Glucose 133 mg/dL (70-100); Potassium 3.8 mmol/L (3.5-5.1); Sodium 133 mmol/L (136-145); Total Protein 4.2 g/dL (6.4-8.2)
[2017-07-10 07:51] LABS: Absolute Monocyte Count 0.25 k/cumm (0.11-0.7); Absolute Neutrophil Count 2.89 k/cumm (1.2-6.7); Platelet Count 51 x1000/uL (130-400)
[2017-07-10 07:52] LABS: Diff Comment Manual Differential; RBC Morphology Normal
[2017-07-10] MEDS: Nicotine 21 MG/24 HR PATCH TD (09:15)
[2017-07-10] MEDS: Pantoprazole 40 MG VIAL IVP (09:17)
[2017-07-10] MEDS: Dexamethasone 4 MG/ML VIAL IVP (09:17)
[2017-07-10 09:42] LABS: LDH 145 U/L (85-227)
--- NOTE | 2017-07-10 09:45 | DI.REPORT_ITS ---
SYMPTOM/DIAGNOSIS: F/U AIR ABOVE AND BELOW DIAPHRAGM PORTABLE AP CHEST: Note is again made of NG tube in position and right internal jugular venous catheter, the tip of which probably lies in right atrium. Volume loss noted at the right lung base, grossly unchanged from examination of 07/09/17. No additional new findings.
--- NOTE | 2017-07-10 09:55 | PDOC.PROG_ITS ---
Date of Service: 07/10/17 Time of Service: 09:53 Assessment/Plan - Assessment/Plan (1) SBO (small bowel obstruction) Assessment: Today's CXR is worrisome still wioth elevated right hemidiaphragm and resp rate still up==varies between 20 and 30. He is more tender abdominally on right, Am very concerned as to whether pt has a leak or ischemic bowel Dr Arteaga on signout to me said his bowel looked almost ischemic at time of surgery Plan: CT scan abd and pelvis STAT Am told that this hospital has no TPN after tomorrow at 7 am This pt may require more surgery or percutaneous drainage May be best to transfer this pt to a tertiary center Await results of CT scan and will address History of Present Illness - History of Present Illness History of Present Illness: Says his breathiong today is less labored than yesterday but is still not normal Says his right abdomen is more painful today than yesterday Review of Systems - Medications/Allergies Allergies/Adverse Reactions: Allergies Allergy/AdvReac Type Severity Reaction Status Date / Time No Known Allergies Allergy Unverified 07/07/17 09:01 Medications: Current Medications Albuterol Sulfate (Proventil Updraft) 2.5 mg UPD Q2H PRN PRN Albuterol/Ipratropium (Duoneb Updraft) 3 ml UPD Q6H PRN PRN Dexamethasone (Decadron Phosphate) 4 mg IVP BID [facility] Last Admin: 07/10/17 09:17 Dose: 4 mg Dextrose/Water () 0 gm IVP DIRECTED PRN Last Admin: 07/08/17 08:43 Dose: 12.5 gm Dimethicone/Zinc Oxide (Pavel Protect Cream) 0 gm TP PRN PRN Dronabinol (Marinol) 2.5 mg UD BID [facility] Hydromorphone HCl (Dilaudid Injection) 1 mg IVP Q4H PRN PRN Acetaminophen 1,000 mg/ Device 100 mls @ 400 mls/hr IVPB Q8H [facility] Last Admin: 07/10/17 06:07 Dose: 400 mls/hr Piperacillin/Tazobactam/ (Dextrose 3.375 gm/ Device) 50 mls @ 100 mls/hr IVPB Q6H [facility] Last Admin: 07/10/17 04:54 Dose: 100 mls/hr Fat Emulsion 250 ml/ Device 250 mls @ 31.25 mls/hr IV DAILY [facility] Last Admin: 07/10/17 09:17 Dose: 31.25 mls/hr Multivitamins 10 ml/ Chromium/Copper/Manganese/Zinc 1 ml/Potassium Chloride 20 meq/Magnesium Chloride 508 mg/Calcium Gluconate 4.5 meq/Sodium Acetate 29.5 meq/ Sodium Chloride 5.5 meq/ Folic Acid 1 mg/ Amino Acids/Dextrose 1,049.5424 mls @ 85.917 mls/hr IV .BY DURATION [facility] Last Admin: 07/09/17 17:40 Dose: 85.917 mls/hr Potassium Chloride 20 meq/Magnesium Chloride 508 mg/Calcium Gluconate 4.5 meq/ Sodium Acetate 29.5 meq/Sodium Chloride 5.5 meq/ Amino Acids/Dextrose 1, 038.3424 mls @ 85 mls/hr IV .BY DURATION [facility] Last Admin: 07/10/17 06:09 Dose: 85 mls/hr IV Miscellaneous Supplies () 1 each IV DIRECTED [facility] Lorazepam (Ativan Injection) 0.5 mg IVP Q4H PRN PRN PRN Reason: Insomnia Nicotine (Nicoderm Cq) 21 mg TD DAILY [facility] Last Admin: 07/10/17 09:15 Dose: 21 mg Ondansetron HCl (Zofran Injection) 4 mg IVP Q4H PRN PRN Last Admin: 07/09/17 22:30 Dose: 4 mg Pantoprazole Sodium (Protonix Injection) 40 mg IVP BID [facility] Last Admin: 07/10/17 09:17 Dose: 40 mg Phytonadione (Vitamin K (Aqua-Mephyton)) 0.5 mg SC Q48H [facility] Last Admin: 07/09/17 13:23 Dose: 0.5 mg Sodium Chloride (Saline Flush 10 Ml Syringe) 0 ml IVP PRN PRN Last Admin: 07/10/17 09:14 Dose: 60 ml Objective - Exam Vitals and I&O: Vital Signs Temp 37 C 07/10/17 04:20 Pulse 93 H 07/10/17 05:00 Resp 29 H 07/10/17 05:00 BP 118/83 07/10/17 05:00 Pulse Ox 95 07/10/17 05:00 Intake & Output 0407/09/17 07/10/17 11:59 23:59 11:59 Intake Total 1623 3098 1043 Output Total 8143 8562 1128 Balance 348 -127 -82 Weight 58.3 kg 59.3 kg Intake: IV 1098 2222 1043 Oral 525 175 Blood Product 701 Rbc Leuko Reduced Unit 375 [id number] Rbc Leuko Reduced Unit 326 [id number]* Output: Gastric Drainage 850 600 450 Left Nare 850 600 450 Urine 400 675 500 Stool 25 1950 175 Other: Urine Color Light Shahrzad Dark Shahrzad Dark Shahrzad Urine Appearance Clear Clear Clear Cloudy Comment Levy intact and draining clear shahrzad urine. levy levy Stool Size Moderate Stool Characteristics Liquid Gastric Occult Blood Left Nare Positive General: Alert, Mild distress Lungs: Clear to auscultation Cardiovascular: Regular rate, Other (Rapid) Abdomen: Tenderness, Other (Right sided fullness and right sided tenderness, bowel sounds are present but decreased) Psych/Mental Status: Mental status NL - Results Results: Laboratory Results WBC 4.13 k/cumm (4.4-10.8) L D 07/10/17 06:15 RBC 2.57 m/cumm (4.50-6.00) L 07/10/17 06:15 Hgb 8.1 g/dL (13.5-17.5) L 07/10/17 06:15 Hct 23.5 % (40.0-50.0) L 07/10/17 06:15 MCV 91.4 fL (80-95) 07/10/17 06:15 MCH 31.5 pg (27.0-33.0) 07/10/17 06:15 MCHC 34.5 g/dL (32.0-36.0) 07/10/17 06:15 RDW 13.8 % (11.8-14.1) 07/10/17 06:15 Plt Count 51 x1000/uL (130-400) L 07/10/17 06:15 MPV 11.6 fL (8.0-11.0) H 07/10/17 06:15 Immature Gran % See Differential 07/10/17 06:15 Neutrophils % 60.0 07/10/17 06:15 Lymphocytes % 17.0 07/10/17 06:15 Monocytes % 6.0 07/10/17 06:15 Eosinophils % 0.0 07/10/17 06:15 Basophils % 0.0 07/10/17 06:15 Absolute Neutrophils 2.89 k/cumm (1.2-6.7) 07/10/17 06:15 Band Neutrophils 10.0 % 07/10/17 06:15 Absolute Lymphocytes 0.70 k/cumm (1.2-3.4) L 07/10/17 06:15 Absolute Monocytes 0.25 k/cumm (0.11-0.7) 07/10/17 06:15 Absolute Eosinophils 0.00 k/cumm (0.0-0.7) 07/10/17 06:15 Absolute Basophils 0.00 k/cumm (0.0-0.2) 07/10/17 06:15 Metamyelocytes 7.0 % 07/10/17 06:15 Myelocytes 5.0 % 07/07/17 08:45 Differential Comment Manual differential 07/10/17 06:15 Atypical Lymphocytes 7 07/07/17 13:20 RBC Morphology Normal 07/10/17 06:15 Polychromasia Present 07/09/17 06:13 Hypochromasia 1+ 07/09/17 06:13 Poikilocytosis 1+ 07/09/17 06:13 Microcytosis 1+ 07/08/17 06:00 PT 12.2 sec (9.3-10.8) H 07/09/17 06:13 INR 1.3 (1.0-3.5) 07/09/17 06:13 Sample Site Arterial line 07/09/17 09:09 pCO2 37 mmHg (34-47) 07/09/17 09:09 pO2 78 mmHg (83-108) L 07/09/17 09:09 O2 Saturation 96 % (94-98) 07/09/17 09:09 ABG pH 7.50 (7.35-7.45) H 07/09/17 09:09 ABG HCO3 29 mmol/L (22-28) H 07/09/17 09:09 ABG Total CO2 28 mmol/L (22-29) 07/09/17 09:09 ABG Base Excess 5.9 mmol/L (-3-3) H 07/09/17 09:09 Oxygen Liter Flow Nasal cannula L 07/09/17 09:09 FiO2 28 % 07/09/17 09:09 Sodium 133 mmol/L (136-145) L 07/10/17 06:15 Potassium 3.8 mmol/L (3.5-5.1) 07/10/17 06:15 Chloride 100 mmol/L (98-107) 07/10/17 06:15 Carbon Dioxide 30.7 mmol/L (21.0-32.0) 07/10/17 06:15 Anion Gap 2.3 mmol/L (3-11) L 07/10/17 06:15 BUN 19 mg/dL (7-18) H 07/10/17 06:15 Creatinine 0.48 mg/dL (0.70-1.30) L 07/10/17 06:15 Estimated GFR/1.73 m2 >= 60.00 (mL/min/1.73m2) 07/10/17 06:15 Glucose 133 mg/dL (70-100) H 07/10/17 06:15 Lactate 1.6 mmol/L (0.6-1.4) H 07/10/17 06:15 Calcium 7.8 mg/dL (8.5-10.1) L 07/10/17 06:15 Magnesium 2.0 mg/dL (1.8-2.4) 07/10/17 06:15 Iron 13 ug/dL (50-175) L 07/09/17 06:13 TIBC 45 ug/dL (250-450) L 07/09/17 06:13 Transferrin % Sat 29 % (20-55) 07/09/17 06:13 Ferritin > 2000 ng/mL (8-388) H 07/09/17 06:13 Total Bilirubin 1.06 mg/dL (0.2-1.0) H 07/10/17 06:15 AST 40 U/L (15-37) H 07/10/17 06:15 ALT 27 U/L (16-63) 07/10/17 06:15 Alkaline Phosphatase 61 U/L (46-116) 07/10/17 06:15 Lactate Dehydrogenase 145 U/L (85-227) 07/10/17 06:15 NT-Pro-B Natriuret Pep 211 pg/mL (-299) 07/09/17 06:13 Total Protein 4.2 g/dL (6.4-8.2) L 07/10/17 06:15 Albumin 0.6 g/dL (3.4-5.0) L 07/10/17 06:15 Lipase 36 U/L (73-393) L 07/07/17 08:45 Vitamin B12 > 1000 pg/mL (193-986) H 07/09/17 06:13 Folate 2.4 ng/mL (8.6-20.0) L 07/09/17 06:13 TSH 1.29 uIU/mL (0.358-3.74) 07/09/17 06:13 Urine Color Dark yellow (Yellow) 07/09/17 09:48 Urine Clarity Clear 07/09/17 09:48 Urine pH 6.5 (5-8) 07/09/17 09:48 Ur Specific [place] 1.015 (1.005-1.025) 07/09/17 09:48 Urine Protein Trace mg/dL (Negative) H 07/09/17 09:48 Urine Ketones Negative mg/dL (Negative) 07/09/17 09:48 Urine Blood Trace-intact (Negative) H 07/09/17 09:48 Urine Nitrite Negative (Negative) 07/09/17 09:48 Urine Bilirubin Large (Negative) H 07/09/17 09:48 Urine Urobilinogen 1.0 EU/dL (Up TO 0.2) H 07/09/17 09:48 Ur Leukocyte Esterase Negative (Negative) 07/09/17 09:48 Urine RBC 3-5 (0-2) H 07/09/17 09:48 Urine WBC 0-2 HPF (0-5) 07/09/17 09:48 Ur Epithelial Cells Negative HPF (Negative) 07/09/17 09:48 Urine Crystals Few amorphous HPF (Negative) 07/09/17 09:48 Urine Bacteria Negative HPF (Negative) 07/09/17 09:48 Urine Casts 3-5 fine granular LPF (Negative) 07/09/17 09:48 Urine Mucus Negative (Negative) 07/09/17 09:48 Ur Culture Indicated? No 07/09/17 09:48 Urine Glucose Negative mg/dL (Negative) 07/09/17 09:48 Urine Opiates Screen Negative (Negative) 07/09/17 09:48 Urine Methadone Screen Negative (Negative) 07/09/17 09:48 Ur Barbiturates Screen Negative (Negative) 07/09/17 09:48 Ur Tricyclics Screen Negative (Negative) 07/09/17 09:48 Ur Amphetamines Screen Negative (Negative) 07/09/17 09:48 U Benzodiazepines Scrn Negative (Negative) 07/09/17 09:48 Urine Cocaine Screen Negative (Negative) 07/09/17 09:48 Ur THC Screen Positive (Negative) 07/09/17 09:48 Patient ABO/Rh B Positive 07/07/17 10:08 Antibody Screen Negative 07/07/17 10:08 Crossmatch See Detail 07/07/17 10:08
--- NOTE | 2017-07-10 10:29 | DI.RPTCT_ITS ---
SYMPTOM/DIAGNOSIS: RIGHT SIDED ABDOMINAL FULLNESS AND TENDERNESS, FREE AIR POD 3 INCREASING TENDERNESS RT SIDE TENDERNESS ABDOMINAL AND PELVIC CT: 07/10/17 CT examination of the abdomen and pelvis was performed with a bolus infusion of 100 cc Omnipaque 350. There are moderate size bilateral pleural effusions increased since examination of 07/07/17. There is pneumoperitoneum consistent with post surgical status and there is a new left ostomy in place since the previous examination. There are areas of right and left lower lobe atelectasis. No focal consolidation identified. Liver and spleen are grossly unremarkable in appearance. Gallbladder shows wall thickening which is nonspecific. Pancreas grossly unremarkable in appearance. Abdominal aorta is of normal diameter and no major vascular abnormality is seen. Generalized soft tissue edema noted throughout the abdomen. Adrenals and kidneys unremarkable in appearance. No evidence of urinary tract obstruction. Diffuse small and large bowel wall thickening noted, multiple dilated loops of small bowel noted. Moderate ascites noted. CONCLUSION: Postoperative pneumoperitoneum, generalized ascites and bilateral pleural effusions and diffuse soft tissue edema. Diffuse bowel wall thickening and dilatation which is nonspecific. Please correlate clinically.
[2017-07-10] MEDS: Omnipaque 350 MG/ML 100 ML BTL IV (10:33)
--- NOTE | 2017-07-10 10:57 | DI.VRAD_ITS ---
EXAM: CT Abdomen and Pelvis With Intravenous Contrast CLINICAL HISTORY: 42 years old, male; Signs and symptoms; Other: Right sided abdominal fullness and tenderness, free air; Prior surgery; Surgery date: <1 month; Patient HX: Right sided abdominal fullness and tenderness, free air , pod 3 increasing tenderness right side tenderness TECHNIQUE: Axial computed tomography images of the abdomen and pelvis with intravenous contrast. All CT scans at this facility use one or more dose reduction techniques, viz.: automated exposure control; ma/kV adjustment per patient size (including targeted exams where dose is matched to indication; i.e. head); or iterative reconstruction technique. Coronal and sagittal reformatted images were created and reviewed. CONTRAST: 100 mL of omnipaque 350 administered intravenously. COMPARISON: CT - ABD PELVIS WITH CONTRAST 2017-07-07 09:21 FINDINGS: Lung bases: See below. Pleural space: Small pleural effusions with adjacent atelectasis. ABDOMEN: Liver: Unremarkable. No mass. Gallbladder and bile ducts: Unremarkable. No calcified stones. No ductal dilation. Pancreas: Unremarkable. No mass. No ductal dilation. Spleen: Unremarkable. No splenomegaly. Adrenals: Unremarkable. No mass. Kidneys and ureters: Unremarkable. No solid mass. No hydronephrosis. Stomach and bowel: Interval placement of left sided ostomy. No obstruction. No mucosal thickening. Appendix: No findings to suggest acute appendicitis. PELVIS: Bladder: Unremarkable. No mass. Reproductive: Unremarkable as visualized. ABDOMEN and PELVIS: Intraperitoneal space: Pneumoperitoneum from increased since previous, clinical correlation with surgical date recommended. Continued marked wall thickening of multiple small bowel loops. Moderate distention with fluid within mid and distal small bowel. Adjacent moderate abdominal and pelvic ascites. Bones/joints: No acute fracture. No dislocation. Soft tissues: Midline abdominal incision noted. Anasarca. Vasculature: Unremarkable. No abdominal aortic aneurysm. Lymph nodes: Unremarkable. No enlarged lymph nodes. Tubes, lines and devices: Nasogastric tube into the stomach. IMPRESSION: 1. Interval placement of left sided ostomy. 2. Pneumoperitoneum increased since previous, clinical correlation with surgical date recommended. 3. Continued marked wall thickening of multiple small bowel loops. Moderate distention with fluid within mid and distal small bowel. Likely ileus although obstruction cannot be excluded. 4. Adjacent moderate abdominal and pelvic ascites. 5. Small pleural effusions with adjacent atelectasis. Dictated and Authenticated by: Mellissa Sylvester MD. Ordering:DEION GARCIA MD
--- NOTE | 2017-07-10 11:07 | PGE_ITS ---
DATE OF DICTATION: July 09, 2017 DATE OF CONSULTATION: July 09, 2017 ASSESSMENT AND PLAN: #1. Postoperative day #2 from emergency laparotomy for perforated viscus. Postoperative ileus as well as abdominal free air below and above the diaphragm. This is discussed with Surgery and thought not to be unexpected after his emergency surgery. We will continue to follow. He is being treated with empiric Zosyn. He is followed by Surgery for this. I discussed with the patient that if the amount of free air or chest symptoms increase he may need repeat exploratory surgery at [facility] or transfer to [facility] and that Dr. Cavazos and the Surgery Service will discuss that in further detail with him. #2. Anemia. There is no certain evidence of intraabdominal blood loss or other source. There is no evidence of hemolysis on peripheral smear, T bili is normal. It may be in part to his poor severe malnutrition. He has a coagulopathy and thrombocytopenia and certainly post surgical bleeding is a concern. He is symptomatic and hemoglobin is falling. Will transfuse two units packed red blood cells today. His iron studies are difficult to interpret given his extremely low total iron binding capacity and his markedly elevated ferritin which would be explained by his severe nutritional depletion and active inflammation from his Crohn's disease. Given his low serum iron will give IV iron sucrose after blood transfusion finishes. Folate is very low , likely from poor nutritional intake. Will increase folate supplementation in his TPN. #3. Thrombocytopenia. Presumed to be related to his severe nutritional depletion and concurrent illness. Will follow and discontinue Lovenox as noted above. #4. Coagulopathy. Presumed to be related to chronic uncontrolled Crohn's disease, nutritional depletion, and severe system illness. Vitamin K is not included in TPN that is being given so we will initiate low-dose subcutaneous vitamin K every other day. #5. Chest pain. The patient has vague chest pain, a need to burp sensation, and need to take a deep breath. Suspect this is related to his infra- and supradiaphragmatic air. There is no clinical or radiologic evidence of pulmonary embolism, pleural effusion, pneumonia, or congestive heart failure. Unfortunately, we cannot give Toradol or aspirin We will follow this clinically. #6. Anxiety with tachypnea. The patient relates that he has a history of anxiety problems. He has smoked marijuana daily and one pack per day of cigarettes.daily for many years. He does note that he is irritable if he does not smoke for several days. He agrees to initiation of nicotine patch. Unfortunately, since he is n.p.o. we will not be able to give dronabinol and nabiximols is available only in [place]. Will start p.r.n. Ativan for his cannabis withdrawal syndrome symptoms. #7. Cannabis abuse and withdrawal. As noted above, will start p.r.n. Ativan. When the patient is taking p.o. we will start dronabinol. #8. Metabolic alkalosis. It may be that he is a chronic CO2 retainer and he has a mixed acid based disorder. I suspect he has primarily metabolic acidosis related to mineralocoid effect of hydrocortisone and his fairly high NG output. Will decrease his NG to low intermittent suction, will increase his proton pump inhibitor to b.i.d., and change his hydrocortisone to dexamethasone to remove any mineralocorticoid effect. He has not been receiving diuretic therapy, so doubt this is contraction alkylosis. #9. Hypomagnesemia. Now corrected. #10. Persistent tachycardia and tachypnea. Suspect these are multifactorial related to his anemia. Will obtain echocardiogram on Tuesday, BNP to rule out congestive heart failure. He has received a large volume of hypotonic fluids which have been discontinued. Expect this to improve with blood transfusion and treatment of anxiety and, hopefully with reduction in his diaphragmatic irritation as he recovers. SUBJECTIVE: The patient complains of vague need to burp and vague chest symptoms as well as vague pleuritic chest pain and feeling that he needs to breathe harder. He is also irritable about frequent blood draws and has questions about his current condition which are answered. EXAMINATION: VITAL SIGNS: Temperature 36.2 degrees. Pulse 97. Blood pressure 120/84, blood pressure mean 96. Respiratory rate 35; at the time of my visit his respiratory rate is 20 as counted by me. Oxygen saturation 95% on 2 liters nasal cannula. GENERAL: He is a comfortable alert male in no apparent distress. He is not tachypneic or coughing while distracted and in conversation with me. HEENT: Mucous membranes are moist. Sclerae are white. LUNGS: Clear to auscultation. HEART: He has a regular cardiac rhythm without murmur. ABDOMEN: Soft, with diffuse tenderness. Details abdominal examination is not performed. EXTREMITIES: Warm and pink. Calves are soft. LABORATORY: White blood count 2.87, hemoglobin 7.3, hematocrit 21.6, platelet count 56,000. PT 12.2, INR 1.3. Arterial blood gas: pCO2 37, pO2 78, oxygen saturation 96%, pH 7.50, bicarb 29 on FiO2 of 28% by nasal cannula. Sodium 135, potassium 3.9, chloride 101, carbon dioxide 28, BUN 18, creatinine 0.56, glucose 146, lactate 1.9, calcium 7.7, magnesium 2.3, iron 13, total iron binding capacity 45, transferrin saturation 29, ferritin >2000, total bilirubin 0.67, AST 46, ALT 32, alkaline phosphatase 59, total protein 4.1, albumin 0.6, vitamin B12 >1000, folate 2.4, TSH 1.29. Urine is yellow and clear, pH 6.5, specific gravity 1.015, trace blood, large bilirubin, 3-5 red blood cells and 0-2 white blood cells per high-power field. Other indices are negative. Urine drug screen is negative for all substances except positive for THC. IMAGING: Chest x-ray shows elevation of the right hemidiaphragm, tenting of the right and central mediastinal structures above the diaphragm, without cardiomegaly. Lung mirza are clear. There is free air underneath the diaphragm and, per the radiologist, above the diaphragm as well. Compared to the prior portable chest x-ray there is increased air underneath the right hemidiaphragm with new, albeit mild, elevation of the right hemidiaphragm and expansion of the mediastinal structures above the diaphragm.
[2017-07-10] MEDS: Dronabinol 2.5 MG CAP UD (11:09)
[2017-07-10] MEDS: Normal Saline 250 ML 500 ML IV (12:39)
[2017-07-10 12:46] LABS: HCT 20.5 % (40.0-50.0)
--- NOTE | 2017-07-10 13:09 | PDOC.PROG ---
Date of Service: 07/10/17 Time of Service: 13:09 Assessment/Plan - Assessment/Plan (1) SBO (small bowel obstruction) Assessment: Bowel leak vs ischeic bowel in debilitated nutritionally depleted pt on steroids Sig free intraperitoneal air and fluid intraperitoneally on CT scan -suspect leak vs ischemic bowel Pt requires transfer as percutaneous drainage is not availablke at [facility] and TPN is not available after tomorrow 7am Also, if this pt ends up requiring reexploration it should be done at a tertiary care center-very high risk surgicl candidate Immunosuppressed and nutritionally depleted Plan: Pt will at minumum require placement of drains or drains and may require reexploration Will need detention TPN We only have TPN available till tomorrow am 7 am [facility] also does not have the ability to place percutaneois drains Reexploration may be necessary and if so this pt will require intense care(already does)-would be better served at a larger institution Review of Systems - Medications/Allergies Allergies/Adverse Reactions: Allergies Allergy/AdvReac Type Severity Reaction Status Date / Time No Known Allergies Allergy Unverified 07/07/17 09:01 Medications: Current Medications Albuterol Sulfate (Proventil Updraft) 2.5 mg UPD Q2H PRN PRN Albuterol/Ipratropium (Duoneb Updraft) 3 ml UPD Q6H PRN PRN Dexamethasone (Decadron Phosphate) 4 mg IVP BID [facility] Last Admin: 07/10/17 09:17 Dose: 4 mg Dextrose/Water () 0 gm IVP DIRECTED PRN Last Admin: 07/08/17 08:43 Dose: 12.5 gm Dimethicone/Zinc Oxide (Pavel Protect Cream) 0 gm TP PRN PRN Dronabinol (Marinol) 2.5 mg UD BID [facility] Last Admin: 07/10/17 11:09 Dose: 2.5 mg Hydromorphone HCl (Dilaudid Injection) 1 mg IVP Q4H PRN PRN Acetaminophen 1,000 mg/ Device 100 mls @ 400 mls/hr IVPB Q8H [facility] Last Admin: 07/10/17 06:07 Dose: 400 mls/hr Piperacillin/Tazobactam/ (Dextrose 3.375 gm/ Device) 50 mls @ 100 mls/hr IVPB Q6H [facility] Last Admin: 07/10/17 11:10 Dose: 100 mls/hr Fat Emulsion 250 ml/ Device 250 mls @ 31.25 mls/hr IV DAILY [facility] Last Admin: 07/10/17 09:17 Dose: 31.25 mls/hr Multivitamins 10 ml/ Chromium/Copper/Manganese/Zinc 1 ml/Potassium Chloride 20 meq/Magnesium Chloride 508 mg/Calcium Gluconate 4.5 meq/Sodium Acetate 29.5 meq/Sodium Chloride 5.5 meq/ Folic Acid 1 mg/ Amino Acids/Dextrose 1,049.5424 mls @ 85.917 mls/hr IV .BY DURATION [facility] Last Admin: 07/09/17 17:40 Dose: 85.917 mls/hr Potassium Chloride 20 meq/Magnesium Chloride 508 mg/Calcium Gluconate 4.5 meq/Sodium Acetate 29.5 meq/Sodium Chloride 5.5 meq/ Amino Acids/Dextrose 1,038.3424 mls @ 85 mls/hr IV .BY DURATION [facility] Last Admin: 07/10/17 06:09 Dose: 85 mls/hr IV Miscellaneous Supplies () 1 each IV DIRECTED [facility] Lorazepam (Ativan Injection) 0.5 mg IVP Q4H PRN PRN PRN Reason: Insomnia Nicotine (Nicoderm Cq) 21 mg TD DAILY [facility] Last Admin: 07/10/17 09:15 Dose: 21 mg Ondansetron HCl (Zofran Injection) 4 mg IVP Q4H PRN PRN Last Admin: 07/09/17 22:30 Dose: 4 mg Pantoprazole Sodium (Protonix Injection) 40 mg IVP BID [facility] Last Admin: 07/10/17 09:17 Dose: 40 mg Phytonadione (Vitamin K (Aqua-Mephyton)) 0.5 mg SC Q48H [facility] Last Admin: 07/09/17 13:23 Dose: 0.5 mg Sodium Chloride (Saline Flush 10 Ml Syringe) 0 ml IVP PRN PRN Last Admin: 07/10/17 09:14 Dose: 60 ml Objective - Exam Vitals and I&O: Vital Signs Temp 37 C 07/10/17 12:36 Pulse 120 H 07/10/17 12:44 Resp 27 H 07/10/17 12:44 BP 99/70 07/10/17 12:44 Pulse Ox 100 04/22/18 12:44 Intake & Output 07/09/17 07/10/17 07/10/17 23:59 11:59 23:59 Intake Total 3098 1043 Output Total 3228 1125 Balance -127 -82 Weight 59.3 kg Intake: IV 2222 1043 Oral 175 Blood Product 701 Rbc Leuko Reduced Unit 375 [id number] Rbc Leuko Reduced Unit 326 [id number]* Output: Gastric Drainage 600 450 Left Nare 600 450 Urine 675 500 Stool 1950 175 Other: Urine Color Dark Dilia Dark Dilia Urine Appearance Clear Clear Cloudy Comment levy levy levy Stool Size Moderate Stool Characteristics Liquid - Results Results: Laboratory Results WBC 4.13 k/cumm (4.4-10.8) L D 07/10/17 06:15 RBC 2.57 m/cumm (4.50-6.00) L 07/10/17 06:15 Hgb 7.0 g/dL (13.5-17.5) L 07/10/17 12:30 Hct 20.5 % (40.0-50.0) L* 07/10/17 12:30 MCV 91.4 fL (80-95) 07/10/17 06:15 MCH 31.5 pg (27.0-33.0) 07/10/17 06:15 MCHC 34.5 g/dL (32.0-36.0) 07/10/17 06:15 RDW 13.8 % (11.8-14.1) 07/10/17 06:15 Plt Count 51 x1000/uL (130-400) L 07/10/17 06:15 MPV 11.6 fL (8.0-11.0) H 07/10/17 06:15 Immature Gran % See Differential 07/10/17 06:15 Neutrophils % 60.0 07/10/17 06:15 Lymphocytes % 17.0 07/10/17 06:15 Monocytes % 6.0 07/10/17 06:15 Eosinophils % 0.0 07/10/17 06:15 Basophils % 0.0 07/10/17 06:15 Absolute Neutrophils 2.89 k/cumm (1.2-6.7) 07/10/17 06:15 Band Neutrophils 10.0 % 07/10/17 06:15 Absolute Lymphocytes 0.70 k/cumm (1.2-3.4) L 07/10/17 06:15 Absolute Monocytes 0.25 k/cumm (0.11-0.7) 07/10/17 06:15 Absolute Eosinophils 0.00 k/cumm (0.0-0.7) 07/10/17 06:15 Absolute Basophils 0.00 k/cumm (0.0-0.2) 07/10/17 06:15 Metamyelocytes 7.0 % 07/10/17 06:15 Myelocytes 5.0 % 07/07/17 08:45 Differential Comment Manual differential 07/10/17 06:15 Atypical Lymphocytes 7 07/07/17 13:20 RBC Morphology Normal 07/10/17 06:15 Polychromasia Present 07/09/17 06:13 Hypochromasia 1+ 07/09/17 06:13 Poikilocytosis 1+ 07/09/17 06:13 Microcytosis 1+ 07/08/17 06:00 PT 12.2 sec (9.3-10.8) H 07/09/17 06:13 INR 1.3 (1.0-3.5) 07/09/17 06:13 Sample Site Arterial line 07/09/17 09:09 pCO2 37 mmHg (34-47) 07/09/17 09:09 pO2 78 mmHg (83-108) L 07/09/17 09:09 O2 Saturation 96 % (94-98) 07/09/17 09:09 ABG pH 7.50 (7.35-7.45) H 07/09/17 09:09 ABG HCO3 29 mmol/L (22-28) H 07/09/17 09:09 ABG Total CO2 28 mmol/L (22-29) 07/09/17 09:09 ABG Base Excess 5.9 mmol/L (-3-3) H 07/09/17 09:09 Oxygen Liter Flow Nasal cannula L 07/09/17 09:09 FiO2 28 % 07/09/17 09:09 Sodium 133 mmol/L (136-145) L 07/10/17 06:15 Potassium 3.8 mmol/L (3.5-5.1) 07/10/17 06:15 Chloride 100 mmol/L (98-107) 07/10/17 06:15 Carbon Dioxide 30.7 mmol/L (21.0-32.0) 07/10/17 06:15 Anion Gap 2.3 mmol/L (3-11) L 07/10/17 06:15 BUN 19 mg/dL (7-18) H 07/10/17 06:15 Creatinine 0.48 mg/dL (0.70-1.30) L 07/10/17 06:15 Estimated GFR/1.73 m2 >= 60.00 (mL/min/1.73m2) 07/10/17 06:15 Glucose 133 mg/dL (70-100) H 07/10/17 06:15 Lactate 1.6 mmol/L (0.6-1.4) H 07/10/17 06:15 Calcium 7.8 mg/dL (8.5-10.1) L 07/10/17 06:15 Magnesium 2.0 mg/dL (1.8-2.4) 07/10/17 06:15 Iron 13 ug/dL (50-175) L 07/09/17 06:13 TIBC 45 ug/dL (250-450) L 07/09/17 06:13 Transferrin % Sat 29 % (20-55) 07/09/17 06:13 Ferritin > 2000 ng/mL (8-388) H 07/09/17 06:13 Total Bilirubin 1.06 mg/dL (0.2-1.0) H 07/10/17 06:15 AST 40 U/L (15-37) H 07/10/17 06:15 ALT 27 U/L (16-63) 07/10/17 06:15 Alkaline Phosphatase 61 U/L (46-116) 07/10/17 06:15 Lactate Dehydrogenase 145 U/L (85-227) 07/10/17 06:15 NT-Pro-B Natriuret Pep 211 pg/mL (-299) 07/09/17 06:13 Total Protein 4.2 g/dL (6.4-8.2) L 07/10/17 06:15 Albumin 0.6 g/dL (3.4-5.0) L 07/10/17 06:15 Lipase 36 U/L (73-393) L 07/07/17 08:45 Vitamin B12 > 1000 pg/mL (193-986) H 07/09/17 06:13 Folate 2.4 ng/mL (8.6-20.0) L 07/09/17 06:13 TSH 1.29 uIU/mL (0.358-3.74) 07/09/17 06:13 Urine Color Dark yellow (Yellow) 07/09/17 09:48 Urine Clarity Clear 07/09/17 09:48 Urine pH 6.5 (5-8) 07/09/17 09:48 Ur Specific [place] 1.015 (1.005-1.025) 07/09/17 09:48 Urine Protein Trace mg/dL (Negative) H 07/09/17 09:48 Urine Ketones Negative mg/dL (Negative) 07/09/17 09:48 Urine Blood Trace-intact (Negative) H 07/09/17 09:48 Urine Nitrite Negative (Negative) 07/09/17 09:48 Urine Bilirubin Large (Negative) H 07/09/17 09:48 Urine Urobilinogen 1.0 EU/dL (Up TO 0.2) H 07/09/17 09:48 Ur Leukocyte Esterase Negative (Negative) 07/09/17 09:48 Urine RBC 3-5 (0-2) H 07/09/17 09:48 Urine WBC 0-2 HPF (0-5) 07/09/17 09:48 Ur Epithelial Cells Negative HPF (Negative) 07/09/17 09:48 Urine Crystals Few amorphous HPF (Negative) 07/09/17 09:48 Urine Bacteria Negative HPF (Negative) 07/09/17 09:48 Urine Casts 3-5 fine granular LPF (Negative) 07/09/17 09:48 Urine Mucus Negative (Negative) 07/09/17 09:48 Ur Culture Indicated? No 07/09/17 09:48 Urine Glucose Negative mg/dL (Negative) 07/09/17 09:48 Urine Opiates Screen Negative (Negative) 07/09/17 09:48 Urine Methadone Screen Negative (Negative) 07/09/17 09:48 Ur Barbiturates Screen Negative (Negative) 07/09/17 09:48 Ur Tricyclics Screen Negative (Negative) 07/09/17 09:48 Ur Amphetamines Screen Negative (Negative) 07/09/17 09:48 U Benzodiazepines Scrn Negative (Negative) 07/09/17 09:48 Urine Cocaine Screen Negative (Negative) 07/09/17 09:48 Ur THC Screen Positive (Negative) 07/09/17 09:48 Patient ABO/Rh B Positive 07/07/17 10:08 Antibody Screen Negative 07/07/17 10:08 Crossmatch See Detail 07/10/17 12:51
--- NOTE | 2017-07-10 13:56 | DSE_ITS ---
ADMITTED: JULY 07, 2017 TRANSFERRED: JULY 10, 2017 REASON FOR DISCHARGE/TRANSFER: Worsening condition HOSPITAL COURSE: Mr. Grossman is a 42 year-old with a history of Crohn's who was originally admitted to the hospital on 07/03/17 with what was believed to be just Crohn's flare. He was placed on high doses of Prednisone. The patient felt better after three days of Prednisone. He was eating, passing gas and having bowel movements and pain was back to his baseline. He was discharged home. Unfortunately he returned the next day to the Emergency Department with increasing abdominal pain, inability to keep any fluids down and rigors. CT scan at that time showed free air in his belly. He was taken to the Operating Room emergently for an exploratory laparotomy. The patient was found to have several perforations along a very thickened, distended and diseased small bowel due to Crohn's. There were also areas of necrosis noted. The bowel was resected and an ileocolic anastomosis was done. Because the patient was on Prednisone, and was so sick, a diverting ileostomy was done. The patient was resuscitated overnight. On Tuesday the , the patient looked much better. His pain was well controlled. His wound was opened and there were no signs of inflammation. His ostomy was pink and putting out some liquid through it. He was still tachycardic so he was given some more fluids which did improve his tachycardia. He then had some runs of PVCs. The hospitalist was consulted for this. On Tuesday the , he started to have increased respiratory rate. It was felt that he was maybe fluid overloaded due to his resuscitation from two days prior. X-rays showed a high hemidiaphragm on the right. There was some air as well but this was expected two days postoperatively. His hemoglobin was noted to be low on postop day #2 at 7.3, down from 9.2 on admission. He was given some blood. This did help his tachycardia slightly but he continued to have a high respiratory rate. The next day on July 10, the patient continued to have a high respiratory rate. His hemoglobin drifted slightly again so there was concern for more necrosed bowel versus intraabdominal bleeding. Because of the patient's vital signs, [facility] was called and the patient was transferred for further acute care.
--- NOTE | 2017-07-10 15:12 | PDOC.CMPRO ---
Care Management Progress Note Aditya was transferred to [facility]-please refer to MD note. CM sent referral to [facility] at Patient's request for insurance support. CM will follow up with [facility] to notify of discharge.
--- NOTE | 2017-07-10 15:13 | CMPROGNOTE_ITS ---
Care Management Progress Note Aditya was transferred to [facility]-please refer to MD note. CM sent referral to [facility] at Patient's request for insurance support. CM will follow up with EDENILSON to notify of discharge.
--- NOTE | 2017-07-11 10:01 | PGE_ITS ---
PROGRESS NOTE DATE: July 10, 2017 ASSESSMENT/PLAN: 1. Postoperative day 3 from emergency laparotomy for a perforated viscous. I am concerned that there is continued air leak, as well as bleeding intraabdominally. After two units of packed red blood cells there is only modest elevation in his hematocrit, which has fallen again today. I have discussed this with Surgery, Dr. Cavazos, who will obtain CT scan to further assess. Will also reassess hemoglobin and hematocrit in four hours and transfuse again if H and H are falling. He is being treated with empiric Zosyn. His ostomy is draining well and he does not have peritoneal findings on his abdominal exam. I have discussed with Dr. Cavazos that if his hematocrit is falling, it is likely he is bleeding intraabdominally. There is no evidence of hemolysis or other source of blood loss, and return to the operating room for re-exploration should be considered. 2. Anemia. As noted above, no other evidence of bleeding. Suspect he is bleeding intraabdominally. Will repeat an H and H and transfuse if falling. He is severely and nutritionally depleted, folate deficient and iron deficient. He was given intravenous iron last night, which will be several days before a bone marrow response. He is getting TPN, which does contain iron. Folate has been added to his TPN. 3. Thrombocytopenia. He does not seem to be in DIC. Likely related to his concurrent illness and his severe nutritional depletion. This is stable. 4. Coagulopathy. Likely nutritional, and liver stunning. Low-dose subcutaneous vitamin K has been initiated INR remains stable. 5. Chest pain. There is no change in character of his pain. Again I suspect this is from diaphragmatic irritation and loss of lung volume by compression. There is still no certain evidence of pulmonary embolism, effusion, pneumonia or heart failure. 6. Anxiety. This has improved with addition of nicotine patch and yet persists. Nurses report he was overly-sedated with Ativan 1 mg last night. Will decrease p.r.n. Ativan to 0.5 mg. 7. Cannibis abuse and withdrawal. I have discussed Dronabinol therapy with the pharmacist, who feels would be reasonable to attempt sublingual Dronabinol given by gelatin capsule and chewed. Patient agrees to a trial of this. 8. Metabolic alkalosis. Arterial line had to be discontinued. Patient was returned to continuous suction last night and continues to have significant NG output. He has been changed from Hydrocortisone to Dexamethasone. He's been given a single dose of Lasix by the Surgery Service. His serum bicarbonate remains in the normal range, and his lactate has improved. Will resume low, intermittent suction after discussion with Surgery; try to avoid additional diuretics and not repeat blood gas unless bicarb climbing. 9. Hypomagnesemia. Corrected. 10. Persistent tachycardia and tachypnea. Likely related to his concurrent abdominal illness, anemia and anxiety, as well as loss of lung volume from free- air and elevation of his diaphragm and mediastinal structures. Thus far the patient has tolerated his current respiratory and cardiac status without evidence of fatigue or failure. +++++++++++++++++++ CHIEF COMPLAINT: The patient has no specific complaints today. He continues to have a burping or full sensation in his chest and right upper abdomen. He does not have specific pain, cough, sputum production or abdominal pain. OBJECTIVE: Temperature 37.0, pulse 128, blood pressure 117/76, respirations 30 , oxygen saturation 99% on 2 liters nasal cannula. He's a cachectic male in no apparent distress. His LUNGS are clear to auscultation. He has a regular CARDIAC rhythm without murmur. His mucous membranes are moist. His ABDOMEN remains diffusely tender with fullness in the right upper abdomen. His ostomy is draining liquid brown stool with a small amount of blood seen. There are faint bowel sounds. EXTREMITIES are warm and pink; radial pulses are 2+; calves are soft and nontender. LABORATORY: White blood count 4.13, hemoglobin 8.1, hematocrit 23.5, MCV 91.4, platelet count 51,000; differential does not show any abnormal forms. Sodium 133, potassium 3.8, chloride 100, carbon dioxide 30.7, BUN 19, creatinine 0.48, glucose 133, lactate 1.6, calcium 7.8, magnesium 2.0, total bilirubin 1.06, AST 40, ALT 27, alkaline phosphatase 61, LDH 145, BNP 211, total protein 4.2, albumin 0.6, vitamin B12 >1000, folate 2.4, TSH 1.29. IMAGING: Chest x-ray shows clear lung mirza, mild increase in the elevation of the right hemidiaphragm. There is increased above and below the diaphragm and air in the mediastinum causing further compression of the lungs. NG tube is seems to extend into the stomach; it's difficult to assess the position, as there is a large amount of free-air below the diaphragm. There is gas in what appears to be the transverse colon, although this may be the stomach, the NG tube projects beyond this area of gas.
[2017-07-11 11:53] LABS: Haptoglobin 123 mg/dl (36-195)
== END 2017-07-10 13:35 | disposition short-term general hospital (02) | DRG 329 ==
LOC: ER 04-14 13:14 → ICU 04-14 13:14
PROVIDERS: Family Medicine; Nurse Anesthetist, Certified Registered; Surgery; Admitting Provider Surgery; Emergency Provider Student in an Organized Health Care Education/Training Program; PCP Nurse Practitioner Family; Visit Provider Surgery
DX: K63.1 Perforation of intestine (nontraumatic) (principal); K55.049 Acute infarction of large intestine, extent unspecified; K55.029 Acute infarction of small intestine, extent unspecified; K65.8 Other peritonitis; D62 Acute posthemorrhagic anemia; E87.3 Alkalosis; K50.818 Crohn's disease of both small and large intestine with other complication; D69.6 Thrombocytopenia, unspecified; R79.1 Abnormal coagulation profile; R07.89 Other chest pain; F41.9 Anxiety disorder, unspecified; F17.210 Nicotine dependence, cigarettes, uncomplicated; F12.288 Cannabis dependence with other cannabis-induced disorder; E83.42 Hypomagnesemia; R00.0 Tachycardia, unspecified; R06.82 Tachypnea, not elsewhere classified; E53.8 Deficiency of other specified B group vitamins; E61.1 Iron deficiency; K21.9 Gastro-esophageal reflux disease without esophagitis; K66.0 Peritoneal adhesions (postprocedural) (postinfection); K63.89 Other specified diseases of intestine; E16.1 Other hypoglycemia; Z67.20 Type B blood, Rh positive; Z83.49 Family history of other endocrine, nutritional and metabolic diseases
CPT/HCPCS: 36415 ×2; 80048; 83615; 80053 ×3; 83735 ×3; 83880; 82607; 82746; 83540; 83550; 83605 ×4; 84443; 80307; 82728; 82805 ×2; 81015; 85025 ×4; 85014; 85610; 85018; 81003; 71045 ×3; 74177; 93010 ×2; 36430 ×2; J3430; J1650; J1940; J1720 ×5; J1885 ×7; J2405; J1100 ×2; J1756; J2060 ×4; J0610 ×4; J3475 ×2; J1610; P9016 ×3; 36569; 44120; 44125; 44140; 83690; 86850; 86900; 86901; 86920; 93005; 96361; 96365; 96375; 99223; 99285; 83010; 88307; 88309; 99233; 99356; J0131; J1941; J3490

== ENCOUNTER 2018-08-28 13:26 | Outpatient (CLI) | payer MEDICARE, MEDICAID, SELFPAY ==
[2018-08-28 13:50] LABS: Abs Immature Grans 0.03 k/cumm (0.0-0.09); Absolute Eosinophil Count 0.07 k/cumm (0.0-0.7); Absolute Lymphocyte Count 2.38 k/cumm (1.2-3.4); Basophils % 0.1; Eosinophils % 0.5; HCT 42.9 % (40.0-50.0); HGB 14.6 g/dL (13.5-17.5); Immature Grans % 0.2; Lymphocytes % 17.3; Mean Corpuscular Volume 97.1 fL (80-95); Mean Platelet Volume 10.2 fL (8.0-11.0); Monocytes % 4.4; Neutrophils % 77.5; Platelet Count 283 x1000/uL (130-400); RBC 4.42 m/cumm (4.50-6.00); RBC Distribution Width 13.7 % (11.8-14.1); White Blood Cell Count 13.74 k/cumm (4.4-10.8)
[2018-08-28 13:58] LABS: Absolute Basophil Count 0.01 k/cumm (0.0-0.2); Absolute Neutrophil Count 10.65 k/cumm (1.2-6.7)
[2018-08-28 14:31] LABS: ALT 63 U/L (12-78); AST 32 U/L (15-37); Albumin 3.5 g/dL (3.4-5.0); Alkaline Phosphatase 107 U/L (46-116); Anion Gap 10.4 mmol/L (3-11); BUN 9 mg/dL (7-18); Bilirubin, Total 0.4 mg/dL (0.2-1.0); C-Reactive Protein 0.13 mg/dL (0.0-0.3); CO2 27.6 mmol/L (21.0-32.0); CREATININE 1.03 mg/dL (0.70-1.30); Calcium 8.9 mg/dL (8.5-10.1); Chloride 101 mmol/L (98-107); Glucose 110 mg/dL (70-100); Potassium 3.7 mmol/L (3.5-5.1); Sodium 139 mmol/L (136-145)
== END 2018-08-28 13:46 ==
PROVIDERS: PCP Family Medicine; Visit Provider Internal Medicine Gastroenterology
DX: K50.813 Crohn's disease of both small and large intestine with fistula (principal)
CPT/HCPCS: 36415; 80053; 85025; 86140

== ENCOUNTER 2018-10-16 15:33 | Outpatient (CLI) | payer MEDICARE, MEDICAID, SELFPAY ==
[2018-10-16 17:04] LABS: Anion Gap 11.9 mmol/L (3-11); BUN 16 mg/dL (7-18); CO2 25.1 mmol/L (21.0-32.0); CREATININE 1.18 mg/dL (0.70-1.30); Calcium 9.9 mg/dL (8.5-10.1); Chloride 104 mmol/L (98-107); Glucose 92 mg/dL (70-100); Potassium 4.5 mmol/L (3.5-5.1); Sodium 141 mmol/L (136-145)
== END 2018-10-16 15:53 ==
PROVIDERS: PCP Family Medicine; Visit Provider Internal Medicine Gastroenterology
DX: E87.6 Hypokalemia (principal)
CPT/HCPCS: 36415; 80048

== ENCOUNTER 2020-11-05 02:27 | Outpatient (CLI) | payer MEDICARE, MEDICAID, SELFPAY ==
[2020-11-05 09:28] LABS: ALT 65 U/L (16-63); AST 36 U/L (15-37); Albumin 3.4 g/dL (3.4-5.0); Alkaline Phosphatase 123 U/L (46-116); Anion Gap 9.4 mmol/L (3-11); BUN 8 mg/dL (7-18); Bilirubin, Total 0.5 mg/dL (0.2-1.0); CO2 27.6 mmol/L (21.0-32.0); CREATININE 1.1 mg/dL (0.70-1.30); Calcium 9.2 mg/dL (8.5-10.1); Calculated LDL 63 mg/dL (<100); Chloride 102 mmol/L (98-107); Cholesterol 165 mg/dL (<200); Glucose 86 mg/dL (74-106); HDL Cholesterol 79 mg/dL (40-60); Potassium 4.4 mmol/L (3.5-5.1); Sodium 139 mmol/L (136-145); Total Protein 6.9 g/dL (6.4-8.2); Triglyceride 115 mg/dL (<150)
[2020-11-06 10:14] LABS: HIV-1/2 Ag & Ab Screen Negative (Negative)
[2020-11-06 10:23] LABS: Hepatitis C Ab w Rflx HCV PCR Negative (Negative)
== END 2020-11-05 02:28 | disposition home or self-care (01) ==
PROVIDERS: PCP Family Medicine; Visit Provider Family Medicine
DX: E87.1 Hypo-osmolality and hyponatremia (principal); Z11.3 Encounter for screening for infections with a predominantly sexual mode of transmission; Z11.4 Encounter for screening for human immunodeficiency virus [HIV]; Z11.59 Encounter for screening for other viral diseases; Z13.220 Encounter for screening for lipoid disorders; Z00.00 Encounter for general adult medical examination without abnormal findings
CPT/HCPCS: 36415; 80053; 80061; 86803; 87389

== ENCOUNTER 2021-06-01 07:40 | Inpatient (IN) | payer MEDICARE, MEDICAID, SELFPAY ==
[2021-06-01] VITALS (28 sets, daily range): BP systolic 117–147; BP diastolic 62–95; PULSE 90–112; RESP 14–27; TEMP 36.6–37.7; O2SAT 91–100
--- NOTE | 2021-06-01 | DI.CT_ITS ---
Exam(s) CT CHEST/ABD WO EXAM: CT CHEST/ABD WO CLINICAL HISTORY: leukocytosis, vomiting, elevated lactate,. TECHNIQUE: Imaging Protocol: Axial computed tomography images with coronal and sagittal reformatted images were created and reviewed CONTRAST MATERIAL: Intravenous: None Oral: No COMPARISON: CT ABD PELVIS WITH CONTRAST from 07/07/2017 CT ABD PELVIS WITH CONTRAST from 07/10/2017 CR PORTABLE CHEST ONE VIEW from 07/10/2017 FINDINGS: CHEST: Heart and great vessels: Normal heart size. Aorta not dilated. Pulmonary arteries normal diameter. There are no pleural or pericardial effusions. Adenopathy: None. Lungs: No pulmonary nodules, mass or infiltrate. Mild emphysematous changes. No pneumothorax. Bones: There is no evidence of spine or rib fracture. Soft tissues: Mild bilateral gynecomastia. ABDOMEN/PELVIS: Exam is limited by patient motion. Liver: Normal density. No measurable mass. Gallbladder: Motion at level of gallbladder. The gallbladder appears somewhat distended. No calcifi ed stones, no wall thickening, .No pericholecystic fluid. Biliary tract: No radiodense calculus, no dilation. Pancreas: Normal density, no abnormal calcifications or inflammatory process. Spleen: Normal. Kidneys: Normal size, contour and axis. No radiodense stones. No hydronephrosis. No masses seen. No perinephric collection. Adrenal glands: No masses seen. Abdominal Aorta: Non-dilated. No atherosclerotic changes. Bowel: Portions of small bowel in the mid abdomen not well evaluated due to motion. Left lower quadra nt ostomy. Several loops of bowel as well as mesenteric fat at the ostomy site without evidence of o bstruction. Mildly enlarged mesenteric lymph nodes at the ostomy site. Portions of the colon are co mpletely collapsed. No obstruction or bowel wall thickening. Peritoneal cavity: No ascites, focal collection or mesenteric inflammatory response. No free air. Bones: No suspicious lesions or fractures. Soft tissues: Dehiscence of the anterior abdominal wall. Air and mildly increased density in the rig ht lower quadrant subcutaneous fat consistent with injection site. Impression: Somewhat limited exam due to motion. Mildly distended gallbladder, nonspecific. No evidence of wall thickening or stones. Left lower quadrant ostomy without evidence of obstruction. No acute abnormality in the chest.. RADIATION DOSE DELIVERED: 851.04mGy.cm Total DLP DATA REPOSITORY: All CT scans at this facility are submitted to the National Radiology Data Registry (NRDR) Dose Index Registry (DIR) with the [employer] (A[employer]). RADIATION OPTIMIZATION: All CT scans at this facility use at least one of these dose optimization te chniques: automated exposure control; mA and/or kV adjustment per patient size (includes targeted exa ms where dose is matched to clinical indication); or iterative reconstruction.
[2021-06-01] MEDS: diazePAM 10 MG/2 ML SYR 2.5 MG IVP (08:05)
[2021-06-01] MEDS: Lactated Ringers 1,000 ML 1000 ML IV (08:05)
[2021-06-01] MEDS: ACETAMINOPHEN 1,000 MG/100 ML BTL 400 MG IVPB (08:15)
--- NOTE | 2021-06-01 08:15 | RT.EKG_ITS ---
APPROVED REPORT Exam: Resting ECG Reason for Exam: concern for electrolyte abnormality Patient Location: E HR:97 bpm ECG Measurements Heart Rate 97 AXIS WY 142 P 73 QRSd 93 QRS 47 QT 409 T 70 QTc 521 Conclusion Sinus rhythm...normal P axis, V-rate 60- 99 Consider left ventricular hypertrophy...(S V1+R V5/V6) >3.50mV Prolonged QT interval...QTc >500mS. Sinus. Normal axis. No STEMI. I have reviewed and interpreted ECG and agree with software generated interpretation.
--- NOTE | 2021-06-01 08:17 | ED.GENADUL_ITS ---
Discharge Plan Disposition Patient Disposition: [facility] INPATIENT Condition: Poor Discharge Details Chief Complaint: GenMedical Clinical Impression: Hyponatremia, Crohn's disease with complication, JOSE (acute kidney injury), Muscle spasm Admit Date/Time: 06/01/21 08:54 Admit Provider: Raman Calderon Attending Provider: Raman Calderon Primary Care Provider: Pb Nielsen ED Provider: Cassandra Rubio Discharge Data Discharge Date/Time-TO BE ENTERED AT DEPARTURE: 06/01/21 10:19 Medical Decision Making Patient is a pleasant 45-year-old gentleman presenting today with chief complaint of muscle spasms. Patient brought in via EMS. He reports that yesterday at midnight he began to have significant body spasms that began primarily in his bilateral legs and then moved up into his abdomen. He denies any headache. No focal deficit. Denies any weakness. He states that he has had significant muscle spasms historically of unclear etiology, has not sought care for them in the past. However, he states that this time has been having difficulty with ambulation secondary to the severity of the spasms. States that he continues to be worse primarily in the bilateral lower extremities and that any type of purposeful movement will increase the symptoms. States he did take Tylenol yesterday to help with the discomfort with no improvement. He denies any fever/chills. No chest pain. No shortness of breath. Patient does have a history of Crohn's and states that he chronically has a large amount of stool output from his ostomy. He does not have symptoms of Crohn's flare at this time, denies any significant abdominal pain which is typically the hallmark of this for him. He denies any change in his diet, change in medications, change in dosing, recent travel. On exam, patient appears anxious and uncomfortable. He does have spasms of movements noted in his feet and anterior thighs. Normal cardiac and lung auscultation. He has 5 of 5 strength in all extremities although again, purposeful movement in the lower extremities due in August spasms primarily in the thigh. Is 2+ distal pulses. No rashes noted. Abdominal exam is benign, normal-appearing stool output. Patient does report that he has not urinated since yesterday afternoon. He denies feeling like he is urinates this time. His bladder totals 150 cc via ultrasound. He is not endorsing any back pain or consistencies with cord injury. At this time, I am primarily concerned for electrolyte abnormalities, likely associated with his large amount of ostomy output. Will obtain EKG to evaluate for significant changes with electrolyte abnormalities. We will hydrate the patient, give muscle relaxers, acetaminophen and reassess. Will obtain labs to evaluate for any significant electrolyte abnormalities. Will give Valium to help with spasm. Sodium 117. K Normal. JOSE with creatinine of 4.5. Acute transaminitis with elevation of AST, ALT. T bili normal. White count 26. Patient does appear concentrated with elevation of hemoglobin hematocrit. I am concerned that his acute hyponatremia is likely the source of his symptoms, will give 100 cc of 3% saline now and reassess. Patient reports no improvement after the IV Valium. Consulted with hospitalist who agrees to admission for hyponatremia, acute kidney injury, transaminitis. He is aware of the plan to give the 1 dose of 3% saline. I did speak with pharmacy regarding this order as well. After the patient's one-time bolus of 100 cc of 3% saline, he did report brief improvement. He states that for the following few minutes, his cramps in his lower extremities were significantly improved. However, approximately 20 minutes after the bolus, his symptoms came back, not quite as significant as they had been initially, but are still causing quite a large amount of discomfort. Will give another 100 cc bolus. Spoke with the patients mom, Tashia [phone], at patients request. Reevaluated the patient, he feels signficantly improved after the second 100cc bolus of 3% saline. Spasms appear to have stopped. Will hold on any further hypertonic. Consulted with hospitalist regarding admission for JOSE, hyponatremia, spasms. Dr. Calderon agrees to admission. Patient and family in agreement with this plan. HPI General Mode of arrival: ambulatory . Date/Time Provider Initiated Documentation: 06/01/21 07:53 . Limitations to Documentation: no limitations . Information obtained by: patient, EMS, RN notes reviewed and old records reviewed . History of Present Illness 45 year old M presents to the emergency department with the chief complaint of diffuse muscle cramps, described as severe, with intensity rated at 10. Quality is described as other (muscle cramping), and is localized to the left, right and lower extremity. Patient proximal. Patient started experiencing this day(s) (woke him yesterday around midnight) and it has been constant. improves with No relieving factors improve symptom(s), Movement worsens symptoms . Patient notes nausea/vomiting; denies chest pain, cough, fever/chills, headaches, rash, seizure, shortness of breath and weakness. Patient did receive the following treatments prior to arrival, NSAID Related Data Home Medications Medication Instructions Recorded Confirmed acetaminophen 325 mg tablet 650 mg PO Q6H PRN PRN #30 tab 07/06/17 06/01/21 (Tylenol) adalimumab 40 mg/0.4 mL 40 mg SC Q14D each 09/28/18 06/01/21 subcutaneous syringe kit (Humira(CF)) albuterol sulfate 90 mcg/actuation 1 puff IH Q6H PRN #18 gm 10/30/20 06/01/21 aerosol inhaler cholecalciferol (vitamin D3) 25 1,000 unit PO DAILY 90 Days #90 10/30/20 06/01/21 mcg (1,000 unit) capsule (Vitamin tab-cap D3) cyanocobalamin (vitamin B-12) 1,000 mcg PO DAILY 90 Days #90 10/30/20 06/01/21 1,000 mcg tablet (Vitamin B-12) tab-cap fluoxetine 40 mg capsule 40 mg PO DAILY 90 Days #90 tab-cap 10/30/20 06/01/21 ondansetron HCl 4 mg tablet 4 mg PO Q12H PRN #60 tab 10/30/20 06/01/21 (Zofran) potassium chloride 20 mEq/15 mL 20 meq (15 mL) PO DAILY 30 Days 10/30/20 06/01/21 oral liquid #750 ml scopolamine base 1 mg over 3 days 1 patch TRANSDERMAL Q3D PRN 11/20/20 06/01/21 transdermal patch (Transderm-Scop 1.5 mg transdermal patch () lansoprazole 30 mg capsule,delayed 30 mg PO DAILY #90 tab-cap 02/26/21 06/01/21 release (Prevacid) Previous Rx's Medication Instructions Recorded acetaminophen 325 mg tablet 650 mg PO Q6H PRN PRN #30 tab 07/06/17 (Tylenol) albuterol sulfate 90 mcg/actuation 1 puff IH Q6H PRN #18 gm 10/30/20 aerosol inhaler cholecalciferol (vitamin D3) 25 1,000 unit PO DAILY 90 Days #90 10/30/20 mcg (1,000 unit) capsule (Vitamin tab-cap D3) cyanocobalamin (vitamin B-12) 1,000 mcg PO DAILY 90 Days #90 10/30/20 1,000 mcg tablet (Vitamin B-12) tab-cap fluoxetine 40 mg capsule 40 mg PO DAILY 90 Days #90 tab-cap 10/30/20 ondansetron HCl 4 mg tablet 4 mg PO Q12H PRN #60 tab 10/30/20 (Zofran) potassium chloride 20 mEq/15 mL 20 meq (15 mL) PO DAILY 30 Days 10/30/20 oral liquid #750 ml lansoprazole 30 mg capsule,delayed 30 mg PO DAILY #90 tab-cap 02/26/21 release (Prevacid) Allergies Allergy/AdvReac Type Severity Reaction Status Date / Time No Known Allergies Allergy Verified 06/01/21 10:12 Review of Systems Constitutional Constitutional: Reports as per HPI, Denies chills, Denies fatigue, Denies fever(s), Denies frequent falls and Denies headache(s) Eyes Eyes: Denies change in vision ENT Ears, Nose, Mouth, and Throat: Denies headache(s) Cardiovascular Cardiovascular: Denies chest pain, Denies dyspnea and Denies dyspnea on exertion Respiratory Respiratory: Denies cough, Denies dyspnea and Denies dyspnea on exertion Gastrointestinal Gastrointestinal: Denies abdominal pain (no pain but cramping can extend into the abdomen), Denies change in bowel habits and Denies fecal incontinence Genitourinary Genitourinary: Reports as per HPI, Denies urinary hesitancy, Denies urinary incontinence and Reports other (decreased urination, has not urinated since yesterday) Musculoskeletal Musculoskeletal: Reports as per HPI, Denies back pain, Reports muscle cramps, Denies muscle weakness, Denies numbness, Reports radiating pain into limb (bilateral), Denies stiffness and Denies tingling Integumentary/Breasts Skin/Breast: Reports as per HPI and Denies rash Neurologic Neurologic: Reports as per HPI, Denies frequent falls, Denies headache(s), Reports lack of coordination (states cramping makes his ambulation difficult), Denies localized weakness, Denies numbness, Reports radicular pain, Denies sensory deficit, Denies tingling and Denies paresthesias Endocrine Endocrine: Denies fatigue PFSH All Active Problems (Updated 06/02/21 @ 21:15 by SINAN Yi) JOSE (acute kidney injury) (Acute) Muscle spasm (Acute) Alcohol abuse (Chronic) Transaminitis (Acute) Abnormal WBC count (Acute) Chronic nausea (Chronic) Tobacco use disorder (Chronic) 1/2 ppd 11/[address] (Acute 07/13/17) managed by [facility] at [facility] [place] holister 2-piece pouch Crohn's disease with complication (Chronic 07/21/17) remaining small bowel 180 cm, with fistula 05/01/19 F/u at [facility] [place] [facility] Hyponatremia (Acute) Surgical History ileocecectomy . Repeat ileocolonic resection with anastamosis in 2005 Laparotomy (07/07/17) N[facility]K: perforation of terminal ileum with ileocolonic resection, primary anastomosis and diverting loop ileostomy. Family History Mother Heart disease AFIB and CHF Social History Smoking/Tobacco Use Status: Current every day Quit status: considering quitting Smoking risk assessment performed?: Yes Alcohol Intake: current Alcohol Intake frequency: a few times a week Alcohol type: beer Drug use: Never Substance use type: marijuana Household members: other Details: mother lives with him. He helps her with her illness' Housing: other Details: mobile home Number of Children: 3 Communication Needs: None Do you need help understanding health information?: Rarely Pets and animals: Yes Pets and animals: dog(s) Do you think of yourself as: straight/heterosexual What is your relationship status?: never How often do you talk on the phone with friends or family?: three or more times per week How often do you get together with friends or relatives?: once per week Panel score (0-1 are the most socially isolated patients): 1 What type of physical activity do you participate in: none Seatbelt use: always Drive intox or ride w/intox local 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 Exam Const General: cooperative, healthy appearing, comfortable, no acute distress, well developed and well groomed Nutritional Appearance: average body habitus and well nourished Orientation: alert and awake Eyes General: appearance normal, both eyes and all related structures Neck Neck: normal visual inspection, full ROM, no lymphadenopathy and no meningeal signs Resp Effort & Inspection: normal respiratory effort and able to speak in complete sentences Auscultation: clear to auscultation bilaterally, no rales, no rhonchi and no wheezes Cardio Rate: regular rate Rhythm: regular rhythm Heart Sounds: S1 normal and S2 normal Skin General skin exam: no rashes or lesions noted Neuro General: patient alert and patient awake Cognition: normal cognition Speech: speech normal Gait: normal gait Motor: muscle tone normal throughout, strength 5/5 throughout, no movement abnormalities noted and no fasciculations Sensory Exam: no sensory deficits noted (no saddle paresthesias) DTR's: Rt Patellar: 2+, Lt Patellar: 2+, Rt Ankle: 2+ and Lt Ankle: 2+ Extrem General: normal to inspection, full ROM, capillary refill normal, no joint enlargement, no pedal edema, no calf tenderness and normal gait Psych Appearance: grossly normal and well kempt Mental Status: mental status grossly normal Speech and Movement: speech and movement normal
[2021-06-01 08:22] LABS: Abs Immature Grans 0.26 10^3/uL (0.0-0.06); Absolute Monocyte Count 1.38 10^3/uL (0.1-0.8); Basophils % 0.3; HCT 50.4 % (40.0-50.0); Lymphocytes % 5.1; MCH 32.9 pg (27.0-33.0); MCHC 35.7 % (32.0-36.0); MCV 92.1 fL (80-95); MPV 9.9 fL (8.0-11.0); Monocytes % 5.2; Neutrophils % 88.4; Nucleated RBC 0 %; Platelet Count 348 10^3/uL (130-400); RBC 5.47 10^6/uL (4.36-5.78); RDW-SD 41.4 fL
[2021-06-01 08:25] LABS: Absolute Basophil Count 0.08 10^3/uL (0.0-0.2); Absolute Lymphocyte Count 1.36 10^3/uL (1.2-3.4); Absolute Neutrophil Count 23.49 10^3/uL (1.2-6.7)
[2021-06-01 08:26] LABS: WBC 26.57 10^3/uL (4.4-10.8)
[2021-06-01 08:31] LABS: Diff Comment Diff Reviewed; RBC Morphology Normal
[2021-06-01 08:39] LABS: ALT 121 U/L (16-63); AST 275 U/L (15-37); Alkaline Phosphatase 159 U/L (46-116); BUN 28 mg/dL (7-18); Bilirubin, Total 0.8 mg/dL (0.2-1.0); Calcium 9.6 mg/dL (8.5-10.1); Chloride 77 mmol/L (98-107); Estimated GFR 14.38 (mL/min/1.73m2); Glucose 175 mg/dL (74-106); Magnesium 2.2 mg/dL (1.8-2.4); Potassium 3.7 mmol/L (3.5-5.1); Total Protein 9.4 g/dL (6.4-8.2)
[2021-06-01 08:43] LABS: CREATININE 4.5 mg/dL (0.70-1.30); Sodium 117 mmol/L (136-145)
[2021-06-01 09:08] LABS: Lipase 146 U/L (73-393)
[2021-06-01] MEDS: SODIUM CHLORIDE 3% 500 ML 100 ML IV ×2 (09:10→09:50)
[2021-06-01 09:12] LABS: INR 1.1 (0.9-1.1); PTT Activated 28.4 sec (21.0-27.5)
[2021-06-01 09:21] LABS: TSH (W/Ref FT4) 2.21 uIU/mL (0.36-3.74)
[2021-06-01 09:26] LABS: Bilirubin Negative (Negative); Blood Moderate (Negative); Clarity Sl Cloudy (Clear); Glucose Negative (Negative); Ketones Trace mg/dL (Negative); Leukocyte Esterase Negative (Negative); Nitrite Negative (Negative); Source Nasal/Nares; Specific Gravity >= 1.030 (1.005-1.025); Urobilinogen 0.2 EU/dL (Up TO 0.2); pH 5.5 (5-8)
[2021-06-01 09:32] LABS: Lactate 5.5 mmol/L (0.6-1.4)
[2021-06-01 09:32] LABS: Bacteria Negative HPF (Negative); C & S Indicated? No; Casts 10-20 Hyaline LPF (Negative); Crystals Negative HPF (Negative); Epithelial Cells Rare HPF (Negative); Mucus Trace (Negative); WBC Negative HPF (0-5)
[2021-06-01] MEDS: Enoxaparin 40 MG/0.4 ML SYR SC (11:45)
[2021-06-01 11:50] LABS: COVID-19 PCR Negative (Negative)
[2021-06-01] MEDS: diazePAM 2 MG TAB PO (12:15)
[2021-06-01] MEDS: Mylanta Suspension 30 ML CUP PO (13:58)
[2021-06-01] MEDS: Prochlorperazine 10 MG/2 ML VIAL IVP (14:17)
[2021-06-01] MEDS: Normal Saline 1,000 ML 2000 ML IV (14:47)
[2021-06-01] MEDS: Normal Saline Flush 10 ML SYR IVP ×4 (14:49→23:51)
--- NOTE | 2021-06-01 14:49 | HPE_ITS ---
Date of service: 06/01/21 Time of Service: 14:49 Assessment and Plan Assessment and plan (1) Hyponatremia: Start date: 06/01/21 Start time: 16:24 Status: Resolved Assessment and plan: Patient states vomiting x 2 days with increase in ostomy output. Lactate 5.5, Sodium 117 given 3% sodium in ED x 2 boluses. Given 2 boluses of NS with lasix IV on floor. repeat BMP every 6 hours until 125 sodium Stool studies pending Antiemetics for vomting, valium for spasms and npo until vomiting subsides (2) Vomiting: Start date: 06/01/21 Start time: 16:36 Status: Acute Assessment and plan: as above CT chest and abd with nothing concerning (3) Abnormal WBC count: Start date: 06/01/21 Start time: 16:36 Status: Acute Assessment and plan: 26k wbc count could be d/t vomiting, dehydration and ostomy output, (4) Dehydration: Start date: 06/01/21 Start time: 16:40 Status: Acute Assessment and plan: d/t vomiting, could be driving wbc and lactate. however will treat with antibiotics until sure (5) High serum lactate: Start date: 06/01/21 Start time: 16:37 Status: Acute Assessment and plan: Will start cefepime d/t wbc, lactate, awaiting crp and procal. BC pending (6) Transaminitis: Start date: 06/01/21 Start time: 16:38 Status: Acute Assessment and plan: Hep C panel done and pending. (7) Ileostomy in place: Start date: 06/01/21 Start time: 16:38 Status: Acute Assessment and plan: d/t crohns complication, he is having more output than usual. Green output. Stool studies pending, including c-diff (8) Tobacco use disorder: Start date: 06/01/21 Start time: 16:39 Status: Chronic Assessment and plan: will offer replacement while in the hospital if needed. (9) Crohn's disease with complication: Start date: 06/01/21 Start time: 16:38 Status: Chronic Assessment and plan: as above (10) Alcohol abuse: Start date: 06/01/21 Start time: 16:50 Status: Chronic Assessment and plan: admits drinking, several twisted teas, several times a week would not give an exact a mount or how many, therefore will keep on CIWA for this time being. discussed with Dr. hagen History of Present Illness History of Present Illness Chief Complaint: Leukocytosis, Hyponatremia, Vomiting Narrative: 45 y.o male with PMH of crohn's with ileostomy in place presented to [facility] today because of vomiting onset 2 nights ago. No imaging was done. Labs revealed Sodium level of 117, WBC of 26k, Liver enzymes elevated ast 275, alt 121, alk phos 159. He was admitted for weakness, spasms, hyponatremia. He received 2 boluses of NS 3% in the ED. Repeat BMP at 1400. He was admitted to m/s for further management. Lactate was ordered it came back 5.5 even after IVF. CRP order, procal, and pending. Will also do CT of chest and abd. He was vomiting while in room, along with having severe pain and spasms. He received valium in the ED which was helpful. Valium ordered TID for spasm, zofran and compazine for vomiting, tramadol for pain, NPO at this time d/t vomiting. He has been started on cefepime in setting of leukocytosis and lactate. he also states that he has had an increase in his ileostomy in the last couple of days. Stool samples ordered, pending. On teley d/t sodium. Also given lasix to try to bring down his sodium. He admits to drinking twisted tea a couple of times a weak will place on CIWA, if he scores will place on alcohol w/d scale. Review of Systems All systems reviewed & are unremarkable except as noted in HPI and below PFSH All Active Problems (Updated 06/01/21 @ 16:37 by Anabel Raymundo, LALO) Dehydration (Acute) Alcohol abuse (Chronic) Transaminitis (Acute) High serum lactate (Acute) Abnormal WBC count (Acute) Vomiting (Acute) Chronic nausea (Chronic) Tobacco use disorder (Chronic) / ppd 11/[address] (Acute 07/13/17) managed by [facility] at [facility] holister 2-piece pouch Crohn's disease with complication (Chronic 07/21/17) remaining small bowel 180 cm, with fistula 05/01/19 F/u at [facility] Surgical History ileocecectomy . Repeat ileocolonic resection with anastamosis in 2006 Laparotomy (07/07/17) NVRK: perforation of terminal ileum with ileocolonic resection, primary anastomosis and diverting loop ileostomy. Family History Mother Heart disease AFIB and CHF Social History Smoking/Tobacco Use Status: Current every day Quit status: considering quitting Smoking risk assessment performed?: Yes Alcohol Intake: current Alcohol Intake frequency: a few times a week Alcohol type: beer Drug use: Never Substance use type: marijuana Household members: other Details: mother lives with him. He helps her with her illness' Housing: other Details: mobile home Number of Children: 3 Communication Needs: None Do you need help understanding health information?: Rarely Pets and animals: Yes Pets and animals: dog(s) Do you think of yourself as: straight/heterosexual What is your relationship status?: never How often do you talk on the phone with friends or family?: three or more times per week How often do you get together with friends or relatives?: once per week Panel score (0-1 are the most socially isolated patients): 1 What type of physical activity do you participate in: none Seatbelt use: always Drive intox 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 Meds Allergies and Home Medications Allergies Allergy/AdvReac Type Severity Reaction Status Date / Time No Known Allergies Allergy Verified 06/01/21 10:12 Home Medications Medication Instructions Recorded Confirmed Type acetaminophen 325 mg tablet 650 mg PO Q6H PRN PRN #30 tab 07/06/17 06/01/21 Rx (Tylenol) adalimumab 40 mg/0.4 mL 40 mg SC Q14D each 09/28/18 06/01/21 History subcutaneous syringe kit (Humira(CF)) albuterol sulfate 90 mcg/actuation 1 puff IH Q6H PRN #18 gm 10/30/20 06/01/21 Rx aerosol inhaler cholecalciferol (vitamin D3) 25 1,000 unit PO DAILY 90 Days #90 10/30/20 06/01/21 Rx mcg (1,000 unit) capsule (Vitamin tab-cap D3) cyanocobalamin (vitamin B-12) 1,000 mcg PO DAILY 90 Days #90 10/30/20 06/01/21 Rx 1,000 mcg tablet (Vitamin B-12) tab-cap fluoxetine 40 mg capsule 40 mg PO DAILY 90 Days #90 tab-cap 10/30/20 06/01/21 Rx ondansetron HCl 4 mg tablet 4 mg PO Q12H PRN #60 tab 10/30/20 06/01/21 Rx (Zofran) potassium chloride 20 mEq/15 mL 20 meq (15 mL) PO DAILY 30 Days 10/30/20 06/01/21 Rx oral liquid #750 ml scopolamine base 1 mg over 3 days 1 patch TRANSDERMAL Q3D PRN 11/20/20 06/01/21 History transdermal patch (Transderm-Scop 1.5 mg transdermal patch () lansoprazole 30 mg capsule,delayed 30 mg PO DAILY #90 tab-cap 02/26/21 06/01/21 Rx release (Prevacid) Exam Const General: cooperative, not healthy appearing, acute distress, ill appearing chronically and No well hydrated Nutritional Appearance: average body habitus Orientation: alert, awake and oriented x3 Other: Patient appears older than stated age [facility] Head: normal to inspection, normocephalic and atraumatic Eyes General: appearance normal, both eyes and all related structures Eyelids: eyelids normal Sclera: scleral abnormality (slightly icteric) Pupils: PERRL EOM: EOM intact bilaterally Neck Neck: normal visual inspection and no JVD Lymphatic: no lymphadenopathy noted Resp Effort & Inspection: normal respiratory effort Auscultation: clear to auscultation bilaterally Cardio Jugular venous pressure: no JVD Rhythm: regular rhythm Heart Sounds: S1 normal GI Inspection: abnormal to inspection and scar (from multiple surgeries) Palpation: guarding Auscultation: hypoactive bowel sounds and other (ileostomy) Other: severe vomiting General: deferred Skin General skin exam: jaundice Wounds: no wounds Neuro General: patient alert, patient awake and patient oriented x3 Cognition: normal cognition Speech: speech normal Gait: normal gait Extrem General: normal to inspection, full ROM and no clubbing, cyanosis or edema Psych Appearance: grossly abnormal and disheveled Speech and Movement: speech and movement normal Attitude: cooperative Insight: poor Judgment: poor Results Labs Result diagrams: 06/01/21 08:05 06/01/21 08:05 Labs: Laboratory Results - last 24 hr 06/01/21 06/01/21 06/01/21 08:05 08:05 08:05 WBC 26.57 H* RBC 5.47 Hgb 18.0 H Hct 50.4 H MCV 92.1 MCH 32.9 MCHC 35.7 RDW 12.0 Plt Count 348 MPV 9.9 Immature Gran % 1.0 Neutrophils % 88.4 Lymphocytes % 5.1 Monocytes % 5.2 Eosinophils % 0.0 Basophils % 0.3 Nucleated RBC % 0 Absolute Neutrophils 23.49 H Absolute Lymphocytes 1.36 Absolute Monocytes 1.38 H Absolute Eosinophils 0.00 Absolute Basophils 0.08 RBC Morphology Normal PT 11.0 INR 1.1 APTT 28.4 H VBG Lactate Sodium 117 L* Potassium 3.7 Chloride 77 L Carbon Dioxide 13.0 L Anion Gap 27.0 H BUN 28 H Creatinine 4.5 H* Estimated GFR/1.73 m2 14.38 Glucose 175 H Calcium 9.6 Magnesium 2.2 Total Bilirubin 0.8 AST 275 H ALT 121 H Alkaline Phosphatase 159 H Total Protein 9.4 H Albumin 4.0 Lipase TSH Urine Color Urine Clarity Urine pH Ur Specific [place] Urine Protein Urine Ketones Urine Blood Urine Nitrite Urine Bilirubin Urine Urobilinogen Ur Leukocyte Esterase Urine RBC Urine WBC Ur Epithelial Cells Urine Crystals Urine Bacteria Urine Casts Urine Mucus Ur Culture Indicated? Urine Glucose COVID-19 Source SARS-CoV-2 (PCR) 06/01/21 06/01/21 06/01/21 08:05 08:05 09:15 WBC RBC Hgb Hct MCV MCH MCHC RDW Plt Count MPV Immature Gran % Neutrophils % Lymphocytes % Monocytes % Eosinophils % Basophils % Nucleated RBC % Absolute Neutrophils Absolute Lymphocytes Absolute Monocytes Absolute Eosinophils Absolute Basophils RBC Morphology PT INR APTT VBG Lactate Sodium Potassium Chloride Carbon Dioxide Anion Gap BUN Creatinine Estimated GFR/1.73 m2 Glucose Calcium Magnesium Total Bilirubin AST ALT Alkaline Phosphatase Total Protein Albumin Lipase 146 TSH 2.21 Urine Color Yellow Urine Clarity Sl Cloudy Urine pH 5.5 Ur Specific [place] >= 1.030 H Urine Protein 100 H Urine Ketones Trace H Urine Blood Moderate H Urine Nitrite Negative Urine Bilirubin Negative Urine Urobilinogen 0.2 Ur Leukocyte Esterase Negative Urine RBC 5-10 H Urine WBC Negative Ur Epithelial Cells Rare Urine Crystals Negative Urine Bacteria Negative Urine Casts 10-20 Hyaline Urine Mucus Trace Ur Culture Indicated? No Urine Glucose Negative COVID-19 Source SARS-CoV-2 (PCR) 06/01/21 06/01/21 09:15 09:25 WBC RBC Hgb Hct MCV MCH MCHC RDW Plt Count MPV Immature Gran % Neutrophils % Lymphocytes % Monocytes % Eosinophils % Basophils % Nucleated RBC % Absolute Neutrophils Absolute Lymphocytes Absolute Monocytes Absolute Eosinophils Absolute Basophils RBC Morphology PT INR APTT VBG Lactate 5.5 H* Sodium Potassium Chloride Carbon Dioxide Anion Gap BUN Creatinine Estimated GFR/1.73 m2 Glucose Calcium Magnesium Total Bilirubin AST ALT Alkaline Phosphatase Total Protein Albumin Lipase TSH Urine Color Urine Clarity Urine pH Ur Specific [place] Urine Protein Urine Ketones Urine Blood Urine Nitrite Urine Bilirubin Urine Urobilinogen Ur Leukocyte Esterase Urine RBC Urine WBC Ur Epithelial Cells Urine Crystals Urine Bacteria Urine Casts Urine Mucus Ur Culture Indicated? Urine Glucose COVID-19 Source Nasal/Nares SARS-CoV-2 (PCR) Negative Last Vital Signs Temp 37.2 C 06/01/21 10:34 Pulse 95 H 06/01/21 10:58 Resp 19 06/01/21 10:34 BP 132/77 06/01/21 10:34 Pulse Ox 100 06/01/21 10:34
[2021-06-01 16:08] LABS: C-Reactive Protein 3.58 mg/dL (0.0-0.3)
[2021-06-01] MEDS: diazePAM 10 MG/2 ML SYR 5 MG IVP (16:12)
[2021-06-01 16:21] LABS: Anion Gap 17.4 mmol/L (3-11); BUN 33 mg/dL (7-18); CO2 21.6 mmol/L (21.0-32.0); CREATININE 2.9 mg/dL (0.70-1.30); Calcium 8.7 mg/dL (8.5-10.1); Chloride 84 mmol/L (98-107); Estimated GFR 23.87 (mL/min/1.73m2); Glucose 116 mg/dL (74-106); Potassium 3.4 mmol/L (3.5-5.1)
[2021-06-01] MEDS: CEFEPIME 1 GM in Normal Saline 50 ML IVPB ×2 (16:24→23:50)
[2021-06-01 16:41] LABS: Sodium 123 mmol/L (136-145)
[2021-06-01 16:48] LABS: Procalcitonin 0.5 ng/mL
[2021-06-01] MEDS: THIAMINE 100 MG in Normal Saline 100 ML 200 MG IVPB (17:19)
[2021-06-01] MEDS: POTASSIUM CHLORIDE 10 MEQ/100 ML BAG 100 MEQ IVPB ×4 (17:32→20:41)
[2021-06-01] MEDS: Normal Saline 1,000 ML 125 ML IV (17:35)
[2021-06-01] MEDS: Acetaminophen 500 MG TAB 1000 MG PO (19:29)
[2021-06-01] MEDS: traMADol 50 MG TAB PO (19:30)
[2021-06-02] VITALS (9 sets, daily range): BP systolic 123–140; BP diastolic 60–81; PULSE 76–98; RESP 16–20; TEMP 36.4–37.3; O2SAT 97–99
[2021-06-02 01:02] LABS: C Diff PCR Negative (Negative)
[2021-06-02] MEDS: Normal Saline 1,000 ML 125 ML IV (01:25)
[2021-06-02 06:32] LABS: Abs Immature Grans 0.11 10^3/uL (0.0-0.06); Absolute Lymphocyte Count 1.71 10^3/uL (1.2-3.4); Absolute Monocyte Count 1.53 10^3/uL (0.1-0.8); Basophils % 0.2; HCT 42.8 % (40.0-50.0); HGB 14.8 g/dL (13.5-17.5); Immature Grans % 0.6; Lymphocytes % 8.6; MCH 32.5 pg (27.0-33.0); MCHC 34.6 % (32.0-36.0); MCV 94.1 fL (80-95); MPV 9.6 fL (8.0-11.0); Monocytes % 7.7; Neutrophils % 82.9; Nucleated RBC 0 %; Platelet Count 271 10^3/uL (130-400); RBC 4.55 10^6/uL (4.36-5.78); RDW 12.4 % (11.8-14.1); WBC 19.85 10^3/uL (4.4-10.8)
[2021-06-02 06:35] LABS: Absolute Basophil Count 0.04 10^3/uL (0.0-0.2); Absolute Neutrophil Count 16.46 10^3/uL (1.2-6.7)
[2021-06-02 06:44] LABS: Anion Gap 8.8 mmol/L (3-11); BUN 19 mg/dL (7-18); CO2 26.2 mmol/L (21.0-32.0); CREATININE 1.2 mg/dL (0.70-1.30); Chloride 96 mmol/L (98-107); Glucose 106 mg/dL (74-106); Magnesium 2.9 mg/dL (1.8-2.4); Sodium 131 mmol/L (136-145)
[2021-06-02] MEDS: Cyanocobalamin 500 MCG TAB 1000 MCG PO (08:00)
[2021-06-02] MEDS: FLUoxetine 20 MG CAP 40 MG PO (08:07)
[2021-06-02] MEDS: Cholecalciferol (Vitamin D3) 1,000 UNIT TAB 1000 UNITS PO (08:07)
[2021-06-02] MEDS: Normal Saline Flush 10 ML SYR IVP ×2 (08:08→16:37)
[2021-06-02] MEDS: Lansoprazole 30 MG CAPCR PO (08:08)
[2021-06-02] MEDS: CEFEPIME 1 GM in Normal Saline 50 ML IVPB ×2 (08:08→16:37)
[2021-06-02] MEDS: Furosemide 40 MG/4 ML VIAL IVP (09:01)
[2021-06-02 09:53] LABS: Hepatitis A Antibody IgM Negative (Negative); Hepatitis B Core Antibody Negative (Negative); Hepatitis B surface Ag Negative (Negative); Hepatitis C Ab w Rflx HCV PCR Negative (Negative)
[2021-06-02] MEDS: diazePAM 2 MG TAB PO ×3 (10:19→19:57)
--- NOTE | 2021-06-02 11:10 | PGE_ITS ---
Date of Service Date of service: 06/02/21 Time of Service: 10:00 Assessment and Plan Assessment and plan (1) Hyponatremia: Start date: 06/02/21 Start time: 11:15 Status: Acute Assessment and plan: Appears to be close to baseline. 131 today, up from 117. IV dcd. Started on clear diet and advanced to soft as he is feeling much better and he is feeling better Will continue cefepime d/t leukocytosis and elevated procal at 0.5 (2) Vomiting: Start date: 06/02/21 Start time: 11:19 Status: Resolved Assessment and plan: resolved (3) Abnormal WBC count: Start date: 06/02/21 Start time: 11:20 Status: Acute Assessment and plan: Down to 19 k on cefepime, will continue at this time (4) Dehydration: Start date: 06/02/21 Start time: 11:20 Status: Resolved Assessment and plan: d/t vomiting, was likely driving leukoctysis, as above creatinine has normalized (5) High serum lactate: Start date: 06/01/21 Start time: 16:37 Status: Resolved Assessment and plan: 1.0 lactate (6) Transaminitis: Start date: 06/02/21 Start time: :22 Status: Acute Assessment and plan: Hep C panel done and pending. Elevated liver enzymes, will need repeat labs (7) Ileostomy in place: Start date: 06/02/21 Start time: :22 Status: Acute Assessment and plan: d/t crohns complication, output has decreased. Needs supplies to change, he can chaged on his own Output appears normal. Stool studies pending, Cdiff negative (8) Tobacco use disorder: Start date: 06/02/21 Start time: :24 Status: Chronic Assessment and plan: nictoine replacement while in the hospital if needed. (9) Crohn's disease with complication: Start date: 06/02/21 Start time: :24 Status: Chronic Assessment and plan: as above (10) Alcohol abuse: Start date: 06/02/21 Start time: :24 Status: Chronic Assessment and plan: admits drinking, several twisted teas, several times a week would not give an exact a mount or how many, therefore will keep on CIWA for this time being. discussed with Dr. nolker Subjective Subjective Patient reports: feels better Interval history since last seen: No longer vomiting, started on clears and tolerating, will advance to soft diet. WBC count at 19 today. Repeat lactate down to 1.0 sodium is 131. Creatinine has normalized, potassium normalized. Will continue cefepime at this time and repeat procal as it was 0.5 and he still has wbc, though feeling better. Exam Const General: cooperative, healthy appearing, comfortable and well hydrated Nutritional Appearance: average body habitus Orientation: alert, awake and oriented x3 Other: Patient appears older than stated age [facility] Head: normal to inspection, normocephalic and atraumatic Eyes General: appearance normal, both eyes and all related structures Eyelids: eyelids normal Sclera: scleral abnormality (slightly icteric) Pupils: PERRL EOM: EOM intact bilaterally Neck Neck: normal visual inspection and no JVD Lymphatic: no lymphadenopathy noted Chest Chest: normal inspection of the chest Resp Effort & Inspection: normal respiratory effort Auscultation: clear to auscultation bilaterally Cardio Jugular venous pressure: no JVD Rhythm: regular rhythm Heart Sounds: S1 normal GI Inspection: abnormal to inspection and scar (from multiple surgeries) Palpation: soft Auscultation: normal bowel sounds and other (ileostomy) General: deferred Skin General skin exam: no rashes or lesions noted Wounds: wounds noted (scar to abd) Neuro General: patient alert, patient awake and patient oriented x3 Cognition: normal cognition Speech: speech normal Gait: normal gait Extrem General: normal to inspection, full ROM and no clubbing, cyanosis or edema Psych Appearance: grossly abnormal and disheveled Speech and Movement: speech and movement normal Attitude: cooperative Insight: poor Judgment: poor Objective Last Vital Signs Temp 37.2 C 06/02/21 10:51 Pulse 88 06/02/21 10:51 Resp 16 06/02/21 10:51 BP 126/81 06/02/21 10:51 Pulse Ox 97 06/02/21 10:51 Laboratory Results - last 24 hr 06/01/21 06/01/21 06/01/21 09:15 09:25 15:00 WBC RBC Hgb Hct MCV MCH MCHC RDW Plt Count MPV Immature Gran % Neutrophils % Lymphocytes % Monocytes % Eosinophils % Basophils % Nucleated RBC % Absolute Neutrophils Absolute Lymphocytes Absolute Monocytes Absolute Eosinophils Absolute Basophils VBG Lactate Sodium 123 L* Potassium 3.4 L Chloride 84 L Carbon Dioxide 21.6 Anion Gap 17.4 H BUN 33 H Creatinine 2.9 H D Estimated GFR/1.73 m2 23.87 Glucose 116 H Calcium 8.7 Magnesium C-Reactive Protein Procalcitonin Stl C.difficile Tox PCR SARS-CoV-2 (PCR) Negative Hepatitis A IgM Ab Negative Hep Bs Antigen Negative Hep B Core Total Ab Negative Hepatitis C Antibody Negative 06/01/21 06/01/21 06/01/21 15:14 15:14 20:09 WBC RBC Hgb Hct MCV MCH MCHC RDW Plt Count MPV Immature Gran % Neutrophils % Lymphocytes % Monocytes % Eosinophils % Basophils % Nucleated RBC % Absolute Neutrophils Absolute Lymphocytes Absolute Monocytes Absolute Eosinophils Absolute Basophils VBG Lactate 1.0 Sodium Potassium Chloride Carbon Dioxide Anion Gap BUN Creatinine Estimated GFR/1.73 m2 Glucose Calcium Magnesium C-Reactive Protein 3.58 H Procalcitonin 0.5 Stl C.difficile Tox PCR SARS-CoV-2 (PCR) Hepatitis A IgM Ab Hep Bs Antigen Hep B Core Total Ab Hepatitis C Antibody 06/01/21 06/02/21 06/02/21 23:59 06:20 06:20 WBC 19.85 H RBC 4.55 Hgb 14.8 D Hct 42.8 MCV 94.1 MCH 32.5 MCHC 34.6 RDW 12.4 Plt Count 271 MPV 9.6 Immature Gran % 0.6 Neutrophils % 82.9 Lymphocytes % 8.6 Monocytes % 7.7 Eosinophils % 0.0 Basophils % 0.2 Nucleated RBC % 0 Absolute Neutrophils 16.46 H Absolute Lymphocytes 1.71 Absolute Monocytes 1.53 H Absolute Eosinophils 0.00 Absolute Basophils 0.04 VBG Lactate Sodium 131 L Potassium 4.0 Chloride 96 L Carbon Dioxide 26.2 Anion Gap 8.8 BUN 19 H D Creatinine 1.2 D Estimated GFR/1.73 m2 >= 60.00 Glucose 106 Calcium 8.0 L Magnesium 2.9 H C-Reactive Protein Procalcitonin Stl C.difficile Tox PCR Negative SARS-CoV-2 (PCR) Hepatitis A IgM Ab Hep Bs Antigen Hep B Core Total Ab Hepatitis C Antibody
[2021-06-02] MEDS: Enoxaparin 40 MG/0.4 ML SYR SC (12:13)
--- NOTE | 2021-06-02 16:09 | INITIAL_ITS ---
- If Service Date Differs Date of service: 06/02/21 Time of Service: 16:09 Care Management Initial Assess REASON FOR HOSPITALIZATION:: Hyponatremia PAST MEDICAL HISTORY/PAST SURGICAL HISTORY:: All Active Problems (Updated 06/01/21 @ 16:37 by Anabel Raymundo NP). Dehydration (Acute). Alcohol abuse (Chronic). Transaminitis (Acute). High serum lactate (Acute). Abnormal WBC count (Acute). Vomiting (Acute). Chronic nausea (Chronic). Tobacco use disord er (Chronic). 2 ppd 11/2020. Ileostomy in place (Acute 07/13/17). [facility] [place] [facility] holister 2-piece pouch. Crohn's disease with complication (Chronic 07/21/17). remaining small bowel 180 cm, with fistula. 05/01/19 F/u at [facility]. Surgical History . ileocecectomy. . Repeat ileocolonic resection with anasta mosis in 2005. Laparotomy (07/07/17). NVRK: perforation of terminal ileum with ileocolonic resection, primary anastomosis and diverting loop ileostomy. PREVIOUS FUNCTIONAL STATUS/SOCIAL/FAMILY SUPPORTS:: Kvng lives in a mobilre home in [place] with his mother. He has 3 children ages 22, 13, and 9 however he does not have contact with them. Kvng is disabled and receives social security. He receives [employer] [place] but no other services. CURRENT FUNCTIONAL STATUS:: Kvng was sitting up in bed when CM met with him. He was pleasant and engaged easily with CM. Kvng stated that he is feeling much better, but acknowledged he should have come to the hospital sooner. Kvng talked a lot about his children and how difficult it has been not being able to see them. He informed CM that the court has ordered visitation rights but that his ex refuses to allow him to see them. Kvng anticipates being in the hospital for another day or two and does not feel he will need any additional services. ADVANCE DIRECTIVES:: none on file Has patient been provided with info about the portal/API?: Yes Did the patient sign up for the portal?: No CODE STATUS:: Full Code INSURANCE COVERAGE / FINANCIAL ISSUES:: Medicare. Medicaid CURRENT HOME/COMMUNITY SERVICES/EQUIPMENT:: none PRIMARY CARE PHYSICIAN:: Pb Nielsen POTENTIAL DISCHARGE NEEDS:: follow up with PCP and plan of care PATIENT/FAMILY EDUCATION NEEDS:: Review of discharge instructions, limitations, follow up plan, activity, Ask Me Three TRANSPORTATION:: via private vehicle with friend vs RCT PLAN:: Kvng will gisellley be discharged home with no new services. He will follow up wuth his PCP and plan of care. CM will continue to support Kvng and his discharge needs.
[2021-06-02 23:37] LABS: Campylobacter PCR Negative (Negative); Salmonella PCR Negative (Negative); Shiga Toxin PCR Negative (Negative); Shigella/Enteroinvasive Ecoli Negative (Negative)
[2021-06-03] MEDS: Normal Saline 500 ML 30 ML IV (00:12)
[2021-06-03] MEDS: CEFEPIME 1 GM in Normal Saline 50 ML IVPB ×2 (00:12→08:35)
[2021-06-03] MEDS: Normal Saline Flush 10 ML SYR IVP ×2 (00:12→09:58)
[2021-06-03 07:26] VITALS: BP 134/89; PULSE 92; TEMP 37.2; O2SAT 97
[2021-06-03] MEDS: Furosemide 40 MG/4 ML VIAL IVP (08:23)
[2021-06-03] MEDS: Lansoprazole 30 MG CAPCR PO (08:30)
[2021-06-03] MEDS: Cholecalciferol (Vitamin D3) 1,000 UNIT TAB 1000 UNITS PO (08:30)
[2021-06-03] MEDS: Cyanocobalamin 500 MCG TAB 1000 MCG PO (08:34)
[2021-06-03] MEDS: FLUoxetine 20 MG CAP 40 MG PO (08:35)
[2021-06-03] MEDS: diazePAM 2 MG TAB PO ×3 (08:59→20:04)
--- NOTE | 2021-06-03 10:35 | DSE_ITS ---
Date of service: 06/04/21 Time of Service: 10:35 DS: Diagnosis Discharge Diagnosis (1) Hyponatremia: Status: Acute (2) Vomiting: Status: Resolved (3) Abnormal WBC count: Status: Acute (4) Dehydration: Status: Resolved (5) High serum lactate: Status: Resolved (6) Transaminitis: Status: Acute (7) Ileostomy in place: Status: Acute (8) Tobacco use disorder: Status: Chronic (9) Crohn's disease with complication: Status: Chronic (10) Alcohol abuse: Status: Chronic Discharge Plan Disposition Patient Disposition: HOME Condition: Improving Discharge Details Reason For Visit: HYPONATREMIA,JOSE,TRANSAMINITIS,MUSCLE SPASMS Admit Date/Time: 06/01/21 08:54 Admit Provider: Raman Calderon Attending Provider: Raman Calderon Primary Care Provider: Pb Nielsen Hospital Course Hospital Course: This is a 45 year old male with history of crohns disease with ileostomy, regular alcohol use, who presented to the emergency department after 2 days of vomiting, abdominal spasms, and loose stools. HIs work up in the ED showed elevated white count, lactate and liver enzymes. He was also noted to have a sodium of 117 and in acute renal failure with a creatinine of 4.5 He received hypertonic saline bolus x3, antiemetics, IV fluid bolus and was placed on cefepime for broad spectrum coverage. cultures obtained and he was admitted to med/surg for further management and monitoring. He responded to treatment and his symptoms resolved. He remained hemodynamically stable and labs normalizing. We were able to advance his diet. His cultures remained negative and no source of infection identified. He is back to his baseline and stable for discharge to home with no services. discharge discussed with DR Luo. Home Meds and New Rx's Prescriptions: Continued Humira(CF) 40 mg/0.4 mL syringe kit 40 mg SC Q14D 0RF albuterol sulfate 90 mcg/actuation HFA aerosol inhaler 1 puff IH Q6H PRN (Reason: shortness of breath or wheezing) Qty: 18 6RF cholecalciferol (vitamin D3) [Vitamin D3] 25 mcg (1,000 unit) capsule 1,000 unit PO DAILY 90 Days Qty: 90 3RF Rx Instructions: 08/10/17 [facility] cyanocobalamin (vitamin B-12) [Vitamin B-12] 1,000 mcg tablet 1,000 mcg PO DAILY 90 Days Qty: 90 3RF Rx Instructions: 08/12/17 [facility] fluoxetine 40 mg capsule 40 mg PO DAILY 90 Days Qty: 90 3RF Rx Instructions: 08/10/17 [facility] ondansetron HCl [Zofran] 4 mg tablet 4 mg PO Q12H PRN Qty: 60 3RF Rx Instructions: 11/03/18 [facility] potassium chloride 20 mEq/15 mL liquid 20 meq PO DAILY 30 Days Qty: 750 6RF Rx Instructions: Please dispense enough for one month at a time scopolamine base [Transderm-Scop] 1 mg over 3 days patch 3 day 1 patch transdermal Q3D PRN0RF Rx Instructions: per note dated [facility] [place] [facility] lansoprazole [Prevacid] 30 mg capsule,delayed release(DR/EC) 30 mg PO DAILY Qty: 90 3RF Rx Instructions: 08/12/17 [facility] acetaminophen [Tylenol] 325 MG tablet 650 mg PO Q6H PRN PRNQty: 30 0RF Label Comments: Took at bedtime last night Discharge Instructions Instructions: Acute Nausea and Vomiting (DC) Additional Instructions: continue routine ostomy care. drink 6-8 glasses of fluids to stay well hydrated. Drink other fluids in addition to free water to prevent drop in sodium. avoid alcohol. Stand Alone Forms: Nursing Discharge Form Referrals: Pb Nielsen DO [Primary Care Provider] - 06/11/21 9:15 am Activity:: Activity as Tolerated Equipment/Supplies:: No Equipment Needed Diet:: As Tolerated Discharge Orders Discharge Orders: Discharge Order (Routine); Ordered 06/04/21 Ordered By: Clarisa Li Discharge Data Discharge Date/Time-TO BE ENTERED AT DEPARTURE: 06/04/21 12:00 DS: Summary Time Spent with Patient providing and/or coordinating discharge services: Greater than 30 minutes Status at Discharge Functional status at discharge: independent ambulation Overall status at discharge: patient is progressing back to baseline Mental Status: mental status grossly normal Speech and Movement: speech and movement normal Mood: congruent mood Affect: normal affect Exam Const General: no acute distress and ill appearing (older than stated age) chronically Nutritional Appearance: average body habitus Orientation: alert, awake and oriented x3 HENMT Head: normal to inspection, normocephalic and atraumatic Mouth: oral mucosae normal Resp Effort & Inspection: normal respiratory effort Auscultation: clear to auscultation bilaterally Cardio Rate: regular rate Rhythm: regular rhythm GI Inspection: scar (well healed mid-abdomen.ostomy left side, stoma intact, liquid brown drain ) Palpation: soft Skin General skin exam: no rashes or lesions noted Neuro General: patient alert, patient awake, patient oriented x3 and moves all extremities Cognition: normal cognition Extrem General: no pedal edema Psych Mental Status: mental status grossly normal Speech and Movement: speech and movement normal Mood: congruent mood Affect: normal affect DS: Data Vitals/I&O Vitals and I&O: Vital Signs Temperature 37.2 C 06/03/21 07:26 Temperature Source Tympanic 06/03/21 07:26 Pulse 92 H 06/03/21 07:26 Pulse Rhythm Regular 06/03/21 09:36 Pulse 105 H 06/01/21 10:15 Respiratory Rate 20 06/02/21 23:30 Respiratory Effort 06/02/21 23:40 Respiratory Depth Normal 06/02/21 23:40 Respiratory Pattern Normal 06/02/21 23:40 Blood Pressure 134/89 06/03/21 07:26 Blood Pressure Mean 96 06/01/21 10:15 Blood Pressure Position Supine 06/01/21 08:09 Pulse Oximetry 97 06/03/21 07:26 Oxygen Delivery Method Room Air 06/03/21 07:26 Oxygen Flow Rate 0 06/03/21 07:26 Pain Level 3 06/03/21 07:26 Intake & Output 06/02/21 06/02/21 06/03/21 11:59 23:59 11:59 Intake Total 1079.167 / 2209.167 1130 / 2209.167 83 / 83 Output Total 4050 / 6675 2625 / 6675 1650 / 1650 Balance -2970.833 / -4465.833 -1495 / -4465.833 -1567 / -1567 Weight 73.6 kg Intake: IV 1079.167 / 1129.167 50 / 1129.167 83 / 83 Oral 1080 / 1080 Output: Urine 1875 / 2825 950 / 2825 1050 / 1050 Stool 2175 / 3850 1675 / 3850 600 / 600 Other: Urine Color Pale Yellow Yellow Urine Appearance Clear Clear Clear Urine Odor Normal Strong Normal Comment Per patient voided in toilet Stool Occult Blood Negative Stool Size Moderate Stool Characteristics Liquid Voiding Methods Urinal Urinal Urinal Data Completed and Pending Labs on day of discharge: Labs from last 24 hours 06/01/21 06/01/21 23:59 15:15 Stool Campylobacter PCR Negative Stool Salmonella PCR Negative Stool Shigella PCR Negative Cryptosporidium/Giardia SEE BELOW Shiga Toxin (PCR) Negative Preliminary micro results at discharge 06/01/21 15:14 Blood Culture - Preliminary Blood NO GROWTH 24 HOURS 06/01/21 15:21 Blood Culture - Preliminary Blood NO GROWTH 24 HOURS PFSH All Active Problems (Updated 06/03/21 @ 16:19 by Clarisa Li NP) Discharge planning issues (Acute) JOSE (acute kidney injury) (Acute) Muscle spasm (Acute) Alcohol abuse (Chronic) Transaminitis (Acute) Abnormal WBC count (Acute) Chronic nausea (Chronic) Tobacco use disorder (Chronic) 1/2 ppd 11/[address] (Acute 07/13/17) managed by [facility] at [facility] [place] holister 2-piece pouch Crohn's disease with complication (Chronic 07/21/17) 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 Repeat ileocolonic resection with anastamosis in 2005 Laparotomy (07/07/17) NVRK: perforation of terminal ileum with ileocolonic resection, primary anastomosis and diverting loop ileostomy. Family History Mother Heart disease AFIB and CHF Social History Smoking/Tobacco Use Status: Current every day Quit status: considering quitting Smoking risk assessment performed?: Yes Alcohol Intake: current Alcohol Intake frequency: a few times a week Alcohol type: beer Drug use: Never Substance use type: marijuana Household members: other Details: mother lives with him. He helps her with her illness' Housing: other Details: mobile home Number of Children: 3 Communication Needs: None Do you need help understanding health information?: Rarely Pets and animals: Yes Pets and animals: dog(s) Do you think of yourself as: straight/heterosexual What is your relationship status?: never How often do you talk on the phone with friends or family?: three or more times per week How often do you get together with friends or relatives?: once per week Panel score (0-1 are the most socially isolated patients): 1 What type of physical activity do you participate in: none Seatbelt use: always Drive intox or ride w/intox airport shuttle 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
[2021-06-03 10:47] VITALS: BP 131/85; PULSE 90; RESP 18; TEMP 37.5; O2SAT 98
--- NOTE | 2021-06-03 10:54 | W.PM.PROGNOT ---
Date of Service Date of service: 06/03/21 Time of Service: 10:54 Assessment and Plan Assessment and plan (1) Hyponatremia: Status: Acute Assessment and plan: resolving. will repeat in am. (2) Vomiting: Status: Resolved Assessment and plan: resolved (3) Abnormal WBC count: Status: Acute Assessment and plan: trending downward. no source of infection identified. no fevers will discontinue antibiotics. (4) Dehydration: Status: Resolved Assessment and plan: d/t vomiting, was likely driving leukoctysis, as above creatinine has normalized (5) High serum lactate: Status: Resolved Assessment and plan: normalized 1.0 lactate (6) Transaminitis: Status: Acute Assessment and plan: Hep C panel done and negative Elevated liver enzymes, will need repeat labs (7) Ileostomy in place: Status: Acute Assessment and plan: d/t crohns complication, manages his own ostomy Output reported as normal. Stool studies negative Cdiff negative (8) Tobacco use disorder: Status: Chronic Assessment and plan: nictoine replacement while in the hospital if needed. (9) Crohn's disease with complication: Status: Chronic Assessment and plan: as above (10) Alcohol abuse: Status: Chronic Assessment and plan: no signs of withdrawal (11) Discharge planning issues: Status: Acute Assessment and plan: anticipate a discharge to home tomorrow with no services. discussed with Dr. Luo Subjective Subjective Patient reports: no new complaints, feels better, tolerating liquids well, tolerating a regular diet, diarrhea (baseline ostomy output) and afebrile; denies nausea or shortness of breath Exam Const General: no acute distress and ill appearing (older than stated age) chronically Nutritional Appearance: average body habitus Orientation: alert, awake and oriented x3 [facility] Head: normal to inspection, normocephalic and atraumatic Mouth: oral mucosae normal Resp Effort & Inspection: normal respiratory effort Auscultation: clear to auscultation bilaterally Cardio Rate: regular rate Rhythm: regular rhythm GI Inspection: scar (well healed mid-abdomen.ostomy left side, stoma intact, liquid brown drain ) Palpation: soft Skin General skin exam: no rashes or lesions noted Neuro General: patient alert, patient awake, patient oriented x3 and moves all extremities Cognition: normal cognition Extrem General: no pedal edema Objective Last Vital Signs Temp 37.5 C 06/03/21 10:47 Pulse 90 06/03/21 10:47 Resp 18 06/03/21 10:47 BP 131/85 06/03/21 10:47 Pulse Ox 98 06/03/21 10:47 Laboratory Results - last 24 hr 06/01/21 06/01/21 15:15 23:59 Stool Campylobacter PCR Negative Stool Salmonella PCR Negative Stool Shigella PCR Negative Cryptosporidium/Giardia SEE BELOW Shiga Toxin (PCR) Negative
--- NOTE | 2021-06-03 13:01 | PDOC.CMPRO ---
- If Service Date Differs Date of service: 06/03/21 Time of Service: 13:01 Care Management Progress Note S/O:Kvng was sitting up in bed when CM met with him. He was again, pleasant and cooperative and engaged readily with CM. He was smiling and stated that he felt great. He shared that he had taken a shower this morning and had ambulated in the halls. Kvng informed CM that he has had muscle cramps all of his life but that the cramps he sustained that resulted in this admission were the worst he has ever had. He verbalized that he understands that he will need to continue to keep a high sodium intake. Kvng has a history of excessive alcohol consumption and is on the CIWA protocol. He scored 0 consistently yesterday but scored a 9 on the CIWA scale this morning. If he does not show any additional symptoms of withdrawal it is likely he will be discharged tomorrow. A: Kvng is a 45 year old man admitted on 06/01/21 with hyponatremia P:Kvng will likely be discharged home with no new services. He will follow up with his PCP and plan of care. CM will continue to support Kvng and his discharge needs.
[2021-06-03] MEDS: Enoxaparin 40 MG/0.4 ML SYR SC (13:06)
[2021-06-03 14:30] VITALS: BP 128/75; PULSE 91; RESP 18; TEMP 37.1; O2SAT 98
[2021-06-03 23:27] VITALS: BP 106/71; PULSE 107; RESP 18; TEMP 36.7; O2SAT 96
[2021-06-04 06:55] LABS: Abs Immature Grans 0.21 10^3/uL (0.0-0.06); Absolute Basophil Count 0.06 10^3/uL (0.0-0.2); Absolute Eosinophil Count 0.04 10^3/uL (0.0-0.7); Absolute Lymphocyte Count 3.02 10^3/uL (1.2-3.4); Absolute Monocyte Count 0.93 10^3/uL (0.1-0.8); Basophils % 0.5; Eosinophils % 0.3; HCT 44.5 % (40.0-50.0); HGB 15.7 g/dL (13.5-17.5); Immature Grans % 1.8; Lymphocytes % 25.7; MCH 32.9 pg (27.0-33.0); MCHC 35.3 % (32.0-36.0); MCV 93.3 fL (80-95); MPV 9.9 fL (8.0-11.0); Monocytes % 7.9; Neutrophils % 63.8; Nucleated RBC 0 %; Platelet Count 236 10^3/uL (130-400); RBC 4.77 10^6/uL (4.36-5.78); RDW 11.9 % (11.8-14.1); RDW-SD 41.1 fL; WBC 11.76 10^3/uL (4.4-10.8)
[2021-06-04 07:21] LABS: Anion Gap 6.6 mmol/L (3-11); BUN 12 mg/dL (7-18); CO2 29.4 mmol/L (21.0-32.0); Chloride 92 mmol/L (98-107); Glucose 97 mg/dL (74-106); Potassium 3.5 mmol/L (3.5-5.1); Sodium 128 mmol/L (136-145)
[2021-06-04 07:22] LABS: ALT 117 U/L (16-63); AST 348 U/L (15-37); Albumin 3.3 g/dL (3.4-5.0); Alkaline Phosphatase 111 U/L (46-116); Bilirubin, Direct 0.2 mg/dL (0.0-0.2); Bilirubin, Total 0.6 mg/dL (0.2-1.0); Total Protein 7.6 g/dL (6.4-8.2)
[2021-06-04 07:34] VITALS: BP 135/76; PULSE 95; RESP 16; TEMP 36.9; O2SAT 98
[2021-06-04] MEDS: Cholecalciferol (Vitamin D3) 1,000 UNIT TAB 1000 UNITS PO (08:09)
[2021-06-04] MEDS: Furosemide 40 MG/4 ML VIAL IVP (08:09)
[2021-06-04] MEDS: Lansoprazole 30 MG CAPCR PO (08:09)
[2021-06-04] MEDS: Normal Saline Flush 10 ML SYR IVP (08:09)
[2021-06-04] MEDS: FLUoxetine 20 MG CAP 40 MG PO (08:10)
[2021-06-04] MEDS: Cyanocobalamin 500 MCG TAB 1000 MCG PO (08:10)
--- NOTE | 2021-06-04 14:53 | PDOC.CMDIS ---
- If Service Date Differs Date of service: 06/04/21 Time of Service: 14:53 LACE Index Scoring Tool - Questions: Length of Stay (in days): 3 Acuity (Admit via E.D.?): Yes E.D. Visits: 1 - Answers: Total Score: 7 Risk of Readmission: Low Risk Care Management Discharge Reason for Hospitalization: Hyponatremia Discharge Plan: Kvng will be discharged home with no new services. He will follow up with his PCP and plan of care and transport with a friend. Patient/Family Education Needs: Review of discharge instructions, limitations, follow up plan, activity, Ask Me Three
[2021-06-11 21:26] LABS: Chymotrypsin, Stool 4.5 U/g (2.3-51.4)
== END 2021-06-04 12:00 | disposition home or self-care (01) | DRG 641 ==
LOC: ER 09:14 → MS 10:25
PROVIDERS: Nurse Practitioner Acute Care; Nurse Practitioner Family; Admitting Provider Family Medicine; Emergency Provider Physician Assistant; PCP Family Medicine; Visit Provider Family Medicine
DX: E87.1 Hypo-osmolality and hyponatremia (principal); K50.013 Crohn's disease of small intestine with fistula; N17.9 Acute kidney failure, unspecified; E86.0 Dehydration; F10.10 Alcohol abuse, uncomplicated; R74.01 Elevation of levels of liver transaminase levels; F17.210 Nicotine dependence, cigarettes, uncomplicated; Z93.2 Ileostomy status; R11.2 Nausea with vomiting, unspecified; M62.831 Muscle spasm of calf; M62.838 Other muscle spasm; D72.829 Elevated white blood cell count, unspecified; E87.2 Acidosis
CPT/HCPCS: 36415; 71250; 74150; 80048; 80053; 80076; 83690; 84145; 84311; 86704; 86709; 86803; 87040; 87329; 87340; 87493; 87505; 87635; 90686; 93005; 96361; 96365; 96366; 96375; 99285; J1650; U0005; 81003; 81015; 83605; 83630; 83735; 84443; 85025; 85610; 85730; 86140; 93010; 99223; 99232; 99233; 99239; J0131; J0780; J1940; J3360; J3480

== ENCOUNTER 2021-07-21 02:06 | Outpatient (CLI) | payer MEDICARE, MEDICAID, SELFPAY | END 2021-07-21 02:07 | disposition home or self-care (01) | LOC: LBO 02:06 | PROVIDERS: PCP Family Medicine; Visit Provider Internal Medicine Gastroenterology ==

== ENCOUNTER 2021-07-23 03:44 | Outpatient (CLI) | payer MEDICARE, MEDICAID, SELFPAY ==
[2021-07-23 10:27] LABS: Abs Immature Grans 0.03 10^3/uL (0.0-0.06); Absolute Basophil Count 0.06 10^3/uL (0.0-0.2); Absolute Eosinophil Count 0.17 10^3/uL (0.0-0.7); Absolute Lymphocyte Count 2.38 10^3/uL (1.2-3.4); Absolute Monocyte Count 0.67 10^3/uL (0.1-0.8); Absolute Neutrophil Count 6.08 10^3/uL (1.2-6.7); Basophils % 0.6; Eosinophils % 1.8; HCT 48.4 % (40.0-50.0); HGB 15.7 g/dL (13.5-17.5); Immature Grans % 0.3; Lymphocytes % 25.3; MCH 32.4 pg (27.0-33.0); MCHC 32.4 % (32.0-36.0); MCV 100 fL (80-95); Monocytes % 7.1; Neutrophils % 64.9; Platelet Count 327 10^3/uL (130-400); RBC 4.84 10^6/uL (4.36-5.78); RDW 12.9 % (11.8-14.1); WBC 9.39 10^3/uL (4.4-10.8)
[2021-07-23 10:56] LABS: ALT 57 U/L (16-63); AST 35 U/L (15-37); Albumin 3.1 g/dL (3.4-5.0); Alkaline Phosphatase 147 U/L (46-116); Anion Gap 4.3 mmol/L (3-11); BUN 9 mg/dL (7-18); Bilirubin, Direct 0.2 mg/dL (0.0-0.2); Bilirubin, Total 0.3 mg/dL (0.2-1.0); C-Reactive Protein 0.39 mg/dL (0.0-0.3); CO2 29.7 mmol/L (21.0-32.0); Calcium 8.5 mg/dL (8.5-10.1); Chloride 103 mmol/L (98-107); Glucose 88 mg/dL (74-106); Potassium 4.3 mmol/L (3.5-5.1); Sodium 137 mmol/L (136-145); Total Protein 7.3 g/dL (6.4-8.2)
[2021-07-23 11:33] LABS: Vitamin B12 497 pg/mL (193-986)
[2021-07-23 11:50] LABS: Vitamin D 25 Total 12.1 ng/mL (30-100)
[2021-07-27 13:55] LABS: TB Interpretation Negative (Negative)
[2021-07-27 14:11] LABS: Adalimumab QN with Reflex Ab 5.3 mcg/mL
[2021-07-28 11:13] LABS: 6-Methylmercaptopurine ribosid 5.99 nmol/mL/h (5.04-9.57)
[2021-08-19 13:03] LABS: Adalimumab Ab <10.0 AU/mL (<14.0)
== END 2021-07-23 03:45 | disposition home or self-care (01) ==
LOC: LBO 03:45
PROVIDERS: PCP Family Medicine; Visit Provider Internal Medicine Gastroenterology
DX: K50.813 Crohn's disease of both small and large intestine with fistula (principal)
CPT/HCPCS: 36415; 80053; 80076; 82306; 82657; 83520; 82607; 85025; 86140; 86480

== ENCOUNTER 2022-11-23 02:29 | Outpatient (CLI) | payer MEDICARE, MEDICAID, SELFPAY ==
[2022-11-23 09:11] LABS: Abs Immature Grans 0.04 10^3/uL (0.0-0.06); Absolute Basophil Count 0.08 10^3/uL (0.0-0.2); Absolute Eosinophil Count 0.11 10^3/uL (0.0-0.7); Absolute Lymphocyte Count 2.76 10^3/uL (1.2-3.4); Absolute Monocyte Count 0.61 10^3/uL (0.1-0.8); Basophils % 0.7; HCT 47.6 % (40.0-50.0); HGB 15.7 g/dL (13.5-17.5); Immature Grans % 0.4; MCH 31.8 pg (27.0-33.0); MCV 96 fL (80-95); MPV 9.9 fL (8.0-11.0); Monocytes % 5.5; Neutrophils % 67.4; Platelet Count 333 10^3/uL (130-400); RBC 4.94 10^6/uL (4.36-5.78); RDW 13.5 % (11.8-14.1); RDW-SD 48.4 fL; WBC 11.02 10^3/uL (4.4-10.8)
[2022-11-23 09:15] LABS: Absolute Neutrophil Count 7.43 10^3/uL (1.2-6.7)
[2022-11-23 09:37] LABS: ALT 75 U/L (16-63); AST 41 U/L (15-37); Albumin 3.4 g/dL (3.4-5.0); Alkaline Phosphatase 207 U/L (46-116); Anion Gap 7.4 mmol/L (3-11); BUN 9 mg/dL (7-18); Bilirubin, Direct 0.2 mg/dL (0.0-0.2); Bilirubin, Total 0.5 mg/dL (0.2-1.0); C-Reactive Protein 0.13 mg/dL (0.0-0.3); CO2 29.6 mmol/L (21.0-32.0); CREATININE 1.3 mg/dL (0.70-1.30); Calcium 9.5 mg/dL (8.5-10.1); Chloride 102 mmol/L (98-107); Estimated GFR 69.04 (mL/min/1.73m2); Glucose 102 mg/dL (74-106); Potassium 3.8 mmol/L (3.5-5.1); Sodium 139 mmol/L (136-145); Total Protein 8.2 g/dL (6.4-8.2)
== END 2022-11-23 02:30 | disposition home or self-care (01) ==
LOC: LBO 02:29
PROVIDERS: PCP Family Medicine; Visit Provider Internal Medicine Gastroenterology
DX: K50.813 Crohn's disease of both small and large intestine with fistula (principal); R74.8 Abnormal levels of other serum enzymes
CPT/HCPCS: 36415; 80053; 80076; 85025; 86140

== ENCOUNTER 2023-02-11 00:58 | Outpatient (CLI) | payer MEDICARE, MEDICAID, SELFPAY ==
[2023-02-11 12:33] LABS: Abs Immature Grans 0.05 10^3/uL (0.0-0.06); Absolute Eosinophil Count 0.27 10^3/uL (0.0-0.7); Absolute Lymphocyte Count 3.42 10^3/uL (1.2-3.4); Absolute Monocyte Count 0.72 10^3/uL (0.1-0.8); Basophils % 0.6; Eosinophils % 2.2; HCT 45.7 % (40.0-50.0); HGB 15.1 g/dL (13.5-17.5); Immature Grans % 0.4; Lymphocytes % 27.7; MCH 31.7 pg (27.0-33.0); MCV 96 fL (80-95); MPV 11.1 fL (8.0-11.0); Monocytes % 5.8; Neutrophils % 63.3; Platelet Count 329 10^3/uL (130-400); RBC 4.77 10^6/uL (4.36-5.78); RDW 13.8 % (11.8-14.1); RDW-SD 48.8 fL; WBC 12.34 10^3/uL (4.4-10.8)
[2023-02-11 12:34] LABS: Absolute Basophil Count 0.07 10^3/uL (0.0-0.2); Absolute Neutrophil Count 7.81 10^3/uL (1.2-6.7)
[2023-02-11 12:39] LABS: Prothrombin Time 9.9 sec (9.1-11.1)
[2023-02-11 13:03] LABS: Iron 48 ug/dL (65-175); Total Iron Binding Capacity 534 ug/dL (250-450); Transferrin Sat 9 % (20-55)
[2023-02-11 13:11] LABS: ALT 59 U/L (16-63); AST 37 U/L (15-37); Albumin 3.5 g/dL (3.4-5.0); Alkaline Phosphatase 188 U/L (46-116); BUN 8 mg/dL (7-18); Bilirubin, Total 0.5 mg/dL (0.2-1.0); CREATININE 1.1 mg/dL (0.70-1.30); Calcium 9.4 mg/dL (8.5-10.1); Chloride 102 mmol/L (98-107); Estimated GFR 84.37 (mL/min/1.73m2); Ferritin 24 ng/mL (26-388); Glucose 89 mg/dL (74-106); Potassium 4.2 mmol/L (3.5-5.1); Sodium 138 mmol/L (136-145); Total Protein 8.1 g/dL (6.4-8.2)
[2023-02-11 13:18] LABS: GGT 340 U/L (15-85)
[2023-02-11 13:27] LABS: Vitamin D 25 Total 13.3 ng/mL (30-100)
[2023-02-14 09:26] LABS: HBs Antibody, Quant 60.9 mIU/mL (See Note); Hepatitis B Surface Ab Positive (See Note)
[2023-02-14 09:40] LABS: Hepatitis B Surface Ag Negative (Negative)
[2023-02-14 10:30] LABS: Hepatitis C Ab w Rflx HCV PCR Negative (Negative)
[2023-02-14 10:53] LABS: Hep B Core Antibody Negative (Negative)
[2023-02-14 11:39] LABS: Hep A Total Ab w Rflx IgM Positive (Negative)
[2023-02-14 12:38] LABS: Smooth Muscle Ab Screen Negative (Negative)
[2023-02-14 13:22] LABS: Alpha 1 Antitrypsin 138 mg/dL (100 - 190)
[2023-02-14 13:54] LABS: Hep A Antibody IgM Negative (Negative)
[2023-02-14 14:56] LABS: ANA Interpretation Positive (Negative)
== END 2023-02-11 00:59 | disposition home or self-care (01) ==
LOC: LBO 00:58
PROVIDERS: PCP Family Medicine; Visit Provider Internal Medicine Gastroenterology
DX: R79.89 Other specified abnormal findings of blood chemistry (principal); K83.01 Primary sclerosing cholangitis; E55.9 Vitamin D deficiency, unspecified
CPT/HCPCS: 36415; 80053; 82103; 82306; 82390; 86704; 86706; 86709; 86803; 87340; 82728; 82977; 83540; 83550; 85025; 85610; 86038; 86255

== ENCOUNTER 2023-08-12 02:43 | Outpatient (CLI) | payer MEDICARE, MEDICAID, SELFPAY ==
[2023-08-12 12:51] LABS: Abs Immature Grans 0.04 10^3/uL (0.0-0.06); Absolute Basophil Count 0.06 10^3/uL (0.0-0.2); Absolute Eosinophil Count 0.24 10^3/uL (0.0-0.7); Absolute Lymphocyte Count 2.94 10^3/uL (1.2-3.4); Absolute Monocyte Count 0.65 10^3/uL (0.1-0.8); Absolute Neutrophil Count 6.08 10^3/uL (1.2-6.7); Basophils % 0.6 %; Eosinophils % 2.4 %; HCT 44.6 % (40.0-50.0); HGB 14.3 g/dL (13.5-17.5); Immature Grans % 0.4 %; Lymphocytes % 29.4 %; MCH 31.9 pg (27.0-33.0); MCHC 32.1 % (32.0-36.0); MCV 100 fL (80-95); MPV 9.9 fL (8.0-11.0); Monocytes % 6.5 %; Neutrophils % 60.7 %; Platelet Count 297 10^3/uL (130-400); RBC 4.48 10^6/uL (4.36-5.78); RDW 13.2 % (11.8-14.1); RDW-SD 49.5 fL; WBC 10.01 10^3/uL (4.4-10.8)
[2023-08-12 13:08] LABS: ALT 65 U/L (16-63); AST 39 U/L (15-37); Albumin 3.3 g/dL (3.4-5.0); Alkaline Phosphatase 152 U/L (46-116); Anion Gap 9.5 mmol/L (3-11); BUN 8 mg/dL (7-18); Bilirubin, Total 0.5 mg/dL (0.2-1.0); CO2 27.5 mmol/L (21.0-32.0); CREATININE 1.2 mg/dL (0.70-1.30); Calcium 8.7 mg/dL (8.5-10.1); Chloride 102 mmol/L (98-107); Estimated GFR 75.53 (mL/min/1.73m2); Glucose 100 mg/dL (74-106); Potassium 3.8 mmol/L (3.5-5.1); Sodium 139 mmol/L (136-145); Total Protein 7.7 g/dL (6.4-8.2)
[2023-08-12 13:09] LABS: C-Reactive Protein < 0.50 mg/dL (<or=0.5)
[2023-08-15 09:06] LABS: IgA 608 mg/dL (85-499)
[2023-08-15 16:07] LABS: Tissue Transglutaminase IgA <4.0 CU (<20.0)
[2023-08-17 14:27] LABS: Adalimumab QN with Reflex Ab 2.4 mcg/mL
[2023-10-13 12:39] LABS: Adalimumab Ab 10.8 AU/mL (<14.0)
== END 2023-08-12 02:44 | disposition home or self-care (01) ==
LOC: LBO 02:43
PROVIDERS: PCP Family Medicine; Visit Provider Internal Medicine Gastroenterology
DX: K50.813 Crohn's disease of both small and large intestine with fistula (principal)
CPT/HCPCS: 36415; 80053; 82784; 83520; 85025; 86140

== ENCOUNTER 2024-12-12 18:29 | Emergency (ER) | payer MEDICARE, SELFPAY ==
[2024-12-12 18:31] VITALS: BP 156/102; PULSE 108; RESP 16; TEMP 37.2; O2SAT 98
--- NOTE | 2024-12-12 18:41 | ED.GENADUL_ITS ---
Discharge Plan Disposition Patient Disposition: Home Condition: Stable Discharge Details Clinical Impression: Cellulitis of scalp Primary Care Provider: Pb Nielsen ED Provider: Yves Archibald Home Meds and New Rx's Prescriptions: New sulfamethoxazole-trimethoprim 800-160 mg tablet 1 tab PO BID 10 Days Qty: 20 0RF Continued albuterol sulfate 90 mcg/actuation HFA aerosol inhaler 1 puff IH Q6H PRN (Reason: shortness of breath or wheezing) Qty: 18 6RF potassium chloride 20 mEq/15 mL liquid 20 meq PO DAILY 30 Days Qty: 750 6RF Rx Instructions: Please dispense enough for one month at a time fluoxetine 40 mg capsule 40 mg PO DAILY 90 Days Qty: 90 3RF Rx Instructions: 08/10/17 [facility] ondansetron HCl [Zofran] 4 mg tablet 4 mg PO Q12H PRN Qty: 60 3RF Rx Instructions: 11/03/18 [facility] cholecalciferol (vitamin D3) [Vitamin D3] 25 mcg (1,000 unit) capsule 1,000 unit PO DAILY 90 Days Qty: 90 3RF Rx Instructions: 08/10/17 [facility] cyanocobalamin (vitamin B-12) [Vitamin B-12] 1,000 mcg tablet 1,000 mcg PO DAILY 90 Days Qty: 90 3RF Rx Instructions: 08/12/17 [facility] Humira(CF) 40 mg/0.4 mL syringe kit 40 mg SC QWEEK Rx Instructions: 09/20/33 [facility] ileoscopy report; increase humira to weekly. Emeli Moreno MD omeprazole 40 mg capsule,delayed release(DR/EC) 40 mg PO DAILY Qty: 90 3RF cyclobenzaprine 5 mg tablet 5 mg PO TID PRN (Reason: muscle spasm) Qty: 90 3RF acetaminophen [Tylenol] 325 MG tablet 650 mg PO Q6H PRN PRNQty: 30 0RF Patient Comments: Took at bedtime last night Discharge Instructions Instructions: High Potassium Diet, Sulfamethoxazole and Trimethoprim, Mupirocin, Cellulitis (Skin Infection), Adult ED Additional Instructions: You were seen in the emergency department for your scalp infection, we started you on IV antibiotics and transition to 2 tablets as well as provided you prescription strength topical antibiotic ointment, use the topical ointment 2-3 times per day on the scalp lesion and take the antibiotics sent to [facility] in [facility] as directed. Please use therapeutic dosing of Tylenol (acetamenophen) & Advil (ibuprofen) in an alternating fashion as follows: Take 1000mg of Tylenol every 6 hours without missing doses- that is 4 times per day. Chcf in between the Tylenol dosings, take 400-600mg of Advil also on a 6 hour schedule, that is also 4 times per day. The daily maximum dosing of Tylenol is 4000mg, and the daily maximum dosing of Advil is 2400mg. This is safe to do for weeks. Please note that some common cold medications & prescription pain medications may contain acetamenophen and you need to read OTC drug labels and factor that in to maximum daily dosings. You had mildly low potassium, please follow high potassium diet over the next 1 to 2 weeks. Please return for any severe increase in infectious symptoms like fever, intractable nausea or vomiting, tachycardia, redness and swelling. Referrals: Pb Nielsen DO [Primary Care Provider, Medicine] Discharge Data Discharge Date/Time-TO BE ENTERED AT DEPARTURE: 12/12/24 21:53 HPI General Date/Time Provider Initiated Documentation: 12/12/24 18:40 . HPI Narrative: 49 year-old male presents to ED today by EMS with a chief complaint of infected wound to top of scalp, with some pain down his R lateral posterior neck with onset noticed Tuesday morning. Quality described as painful, some drainage of pus, no radiation to overt fever, shortness of breath, nausea/vomiting, cough, abdominal pain. Severity is described as moderate. Palliating factors include Tylenol at noon today with mild relief. Provoking factors include nothing specific. Patient not anticoagulated. Related Data Home Medications ?Medication ?Instructions ?Recorded ?Confirmed acetaminophen 325 mg tablet 650 mg (2 x 325 mg) PO Q6H PRN PRN 07/06/17 11/20/24 (Tylenol) #30 tabs ondansetron HCl 4 mg tablet 4 mg PO Q12H PRN #60 tabs 10/30/20 11/17/23 (Zofran) potassium chloride 20 mEq/15 mL 20 meq (15 mL) PO ALFREDO Y 30 days 10/12/22 11/20/24 oral liquid #750 mL cholecalciferol (vitamin D3) 25 1,000 unit PO DAILY 90 days #90 12/06/22 11/20/24 mcg (1,000 unit) capsule (Vitamin tab-caps D3) cyanocobalamin (vitamin B-12) 1,000 mcg PO DAILY 90 da ys #90 12/06/22 11/20/24 1,000 mcg tablet (Vitamin B-12) tab-caps adalimumab 40 mg/0.4 mL 40 mg subcut QWEEK 09/28/23 11/20/24 subcutaneous syringe kit (Humira(CF)) omeprazole 40 mg capsule,delayed 40 mg PO DAILY #90 ca ps 06/05/24 11/20/24 release albuterol sulfate 90 mcg/actuation 1 puff inhalation Q 6H PRN 08/31/24 11/20/24 aerosol inhaler shortness of breath or wheez ing #18 grams fluoxetine 40 mg capsule 40 mg PO DAILY 90 days #90 t ab-caps 11/20/24 11/20/24 cyclobenzaprine 5 mg tablet 5 mg PO TID PRN muscle spa sm #90 12/11/24 tabs sulfamethoxazole 800 1 tab PO BID 10 days #20 tab s 12/12/24 mg-trimethoprim 160 mg tablet Previous Rx's ?Medication ?Instructions ?Recorded acetaminophen 325 mg tablet 650 mg (2 x 325 mg) PO Q6H PRN PRN 07/06/17 (Tylenol) #30 tabs ondansetron HCl 4 mg tablet 4 mg PO Q12H PRN #60 tabs 10/30/20 (Zofran) potassium chloride 20 mEq/15 mL 20 meq (15 mL) PO ALFREDO Y 30 days 10/12/22 oral liquid #750 mL cholecalciferol (vitamin D3) 25 1,000 unit PO DAILY 90 days #90 12/06/22 mcg (1,000 unit) capsule (Vitamin tab-caps D3) cyanocobalamin (vitamin B-12) 1,000 mcg PO DAILY 90 da ys #90 12/06/22 1,000 mcg tablet (Vitamin B-12) tab-caps omeprazole 40 mg capsule,delayed 40 mg PO DAILY #90 ca ps 06/05/24 release albuterol sulfate 90 mcg/actuation 1 puff inhalation Q 6H PRN 08/31/24 aerosol inhaler shortness of breath or wheez ing #18 grams fluoxetine 40 mg capsule 40 mg PO DAILY 90 days #90 t ab-caps 11/20/24 cyclobenzaprine 5 mg tablet 5 mg PO TID PRN muscle spa sm #90 12/11/24 tabs sulfamethoxazole 800 1 tab PO BID 10 days #20 tab s 12/12/24 mg-trimethoprim 160 mg tablet Allergies Allergy/AdvReac Type Severity Reaction Status Date / Time No Known Allergies Allergy Verified 12/12/24 18:38 General Stated Complaint: Cellulitis FERN: 3 Review of Systems All systems reviewed & are unremarkable except as noted in HPI and below Exam Narrative Exam Narrative: GENERAL APPEARANCE: Well-nourished, non-toxic, awake and alert, atraumatic, no acute distress. SKIN: Warm, pink, dry, infected 0.25cm excoriated ulcer on crown of scalp with scant purulent material, no lymphadenitis, no large swelling HEAD: Normocephalic, atraumatic, normal hair distribution for gender/age. EYES: Normal conjunctiva, no exudates on lids/lashes. ENT: Nares patent, no circumoral cyanosis, no facial swelling NECK: Supple, trachea midline, painless cervical ROM. LUNGS/CHEST: Lungs CTA bilaterally- no rhonchi/rales/wheezes diffusely, non- labored respirations, normal A/P diameter, symmetrical expansion, no chest wall deformity HEART (CV/PV): Regular rate and rhythm without murmur, no peripheral edema, no JVD. ABDOMEN: Soft, non-distended, no guarding, no tenderness. MSK: Normal ROM, no swelling/deformity to bilateral UEs or LEs, moving all extremities without weakness, no cyanosis, spine midline without tenderness, normal curvature. NEURO: Mental Status AAOx4 - alert to person, place, time, events No facial droop, no forehead involvement. Motor: No focal weakness - strength 5/5 in bilateral UEs and LEs, proximal and distal, symmetric. Sensory: sensation intact to light touch globally. Gait normal: patient ambulated without ataxia into ED room. PSYCH: euthymic, cooperative, pleasant, appropriate speech Course Vital Signs Vital signs: Vital Signs Temperature 37.2 C 12/12/24 18:31 Pulse 108 H 12/12/24 18:31 Respiratory Rate 16 12/12/24 18:31 Blood Pressure 156/102 H 12/12/24 18:31 Pulse Oximetry 98 12/12/24 18:31 Temperature 37.2 C 12/12/24 18:31 Pulse 108 H 12/12/24 18:31 Respiratory Rate 16 12/12/24 18:31 Blood Pressure 156/102 H 12/12/24 18:31 Pulse Oximetry 98 12/12/24 18:31 Oxygen Delivery Method Room Air 12/12/24 18:31 Oxygen Flow Rate 0 12/12/24 18:31 Pain Level 10 12/12/24 18:31 Medical Decision Making This dictation utilizes [id number] dictation software and may contain unedited grammatical errors. 49 year-old male presents to ED today by EMS with a chief complaint of infected wound to top of scalp, with some pain down his R lateral posterior neck with onset noticed Tuesday morning. Quality described as painful, some drainage of pus, no radiation to overt fever, shortness of breath, nausea/vomiting, cough, abdominal pain. Severity is described as moderate. Palliating factors include Tylenol at noon today with mild relief. Provoking factors include nothing spe cific. Patients' medical history: Alcohol abuse, tobacco use disorder, Crohn's disease. Family and social history: Noncontributory. Pertinent exam findings / vital signs include small infected ulcer with excoriation and some scant purulent material at crown of scalp, no lymphadenitis, no nuchal rigidity, benign cardiopulmonary exam, benign abdomen. Differential / pathologies of concern include infected wound, cellulitis, less likely sepsis. Diagnostic studies of: -CBC, CMP, Lactate, Blood Cx's. - CBC shows leukocytosis of 20, but no left shift, normal lactate - CMP shows mild hypokalemia 3.2, - Blood Cx's pending Interventions of: -IV Vancomycin > transition to PO Bactrim & topical mupirocin. ED Course/Assessment/Plan: 49-year-old male presents with an infected wound on his scalp with some scant purulent material, he does have a leukocytosis but no left shift and a normal lactate, normal vitals after he was at rest for more than a few minutes upon arrival, reasonable to trial p.o. antibiotics and topical mupirocin for infected wound on his scalp while cultures are pending, I transitioned him from IV vancomycin loading dose here to p.o. Bactrim, 1 dose p.o. before bed and prescription sent, strict return criteria for any worsening despite treatment. Findings not consistent with sepsis, meningismus, respiratory distress. Disposition of Cellulitis of Scalp. Patient verbalized understanding of the plan and return to ED criteria and engaged in shared decision making. Medical Records Medical records reviewed: Yes I reviewed the patient's medical records. Lab Data Lab results reviewed: Yes I reviewed the patient's lab results. Labs: Laboratory Tests Range/Units 12/12/24 19:50 WBC (4.4-10.8) 10^3/uL 20.18 H RBC (4.36-5.78) 10^6/uL 4.58 Hgb (13.5-17.5) g/dL 12.0 L Hct (40.0-50.0) % 38.2 L MCV (80-95) fL 83 MCH (27.0-33.0) pg 26.2 L MCHC (32.0-36.0) % 31.4 L RDW (11.8-14.1) % 17.4 H Plt Count (130-400) 10^3/uL 291 MPV (8.0-11.0) fL 9.8 Immature Gran % % 0.5 Neutrophils % % 79.1 Lymphocytes % % 14.0 Monocytes % % 5.4 Eosinophils % % 0.7 Basophils % % 0.3 Nucleated RBC % (0.0-0.3) % 0.0 Absolute Neutrophils (1.2-6.7) 10^3/uL 15.96 H Absolute Lymphocytes (1.2-3.4) 10^3/uL 2.83 Absolute Monocytes (0.1-0.8) 10^3/uL 1.09 H Absolute Eosinophils (0.0-0.7) 10^3/uL 0.14 Absolute Basophils (0.0-0.2) 10^3/uL 0.06 VBG Lactate (<or=2.0) mmol/L 1.1 Sodium (136-145) mmol/L 138 Potassium (3.5-5.1) mmol/L 3.2 L Chloride (98-107) mmol/L 100 Carbon Dioxide (21.0-32.0) mmol/L 26.7 Anion Gap (3-11) mmol/L 11.3 H BUN (7-18) mg/dL 7 Creatinine (0.70-1.30) mg/dL 1.0 Est GFR (CKD-EPI 2020) (mL/min/1.73m2) 93.42 Glucose (74-106) mg/dL 100 Calcium (8.5-10.1) mg/dL 9.6 Total Bilirubin (0.2-1.0) mg/dL 0.5 AST (15-37) U/L 29 ALT (16-63) U/L 29 Alkaline Phosphatase (46-116) U/L 134 H Total Protein (6.4-8.2) g/dL 8.3 H Albumin (3.4-5.0) g/dL 3.1 L Quality:SDOH Health Related Social Needs: Health related social needs food insecurity house/econ circumstance PFSH All Active Problems (Updated 12/12/24 @ 20:38 by SINAN Pool) Cellulitis of scalp (Acute) Status post ileostomy (Acute) 05/16/2024 at [facility] by Emeli Shore MD Status post small bowel resection (Acute) 05/16/2024 at [facility] by Dr. Emeli Shore Status post colectomy (Acute) 05/16/24 at [facility] Emeli Shore by Unilateral inguinal hernia, without obstruction or gangrene, not specified as recurrent (Acute) Unilateral inguinal hernia, without obstruction or gangrene, recurrent (Acute) Parastomal hernia without obstruction or gangrene (Acute) Incisional hernia without obstruction or gangrene (Acute) Iron deficiency anemia, unspecified (Acute) Normal endoscopic ultrasound of upper gastrointestinal tract (Acute 02/18/23) [facility] Abnormal findings on diagnostic imaging of gall bladder (Acute) PSC (primary sclerosing cholangitis) (Acute) Vitamin D2 deficiency (Acute) Smoker (Acute) Crohn's disease with complication (Acute 07/21/17) remaining small bowel 180 cm, with fistula 05/01/19 F/u at [facility] GI 11/06/21 incomplete flex sig Gynecomastia (Acute) Muscle spasm (Acute) Transaminitis (Acute) Medical History (Updated 12/12/24 @ 20:38 by SINAN Pool) H/O magnetic resonance imaging 01/19/23- [facility] MRI CHOLANGIOPANCREATOGRAPHY WO CONTRAST. suggestive of PSC; will connect with liver specialist. abnormal appearance of gallbladder, f/u EUS. Emeli Moreno MD;[facility] Gastro Alcohol abuse Tobacco use disorder 1/2 ppd 11/[address] (07/13/17) managed by [facility] holister 2-piece pouch Hyponatremia Surgical History (Updated 06/14/24 @ 17:12 by Arcelia Lezama [facility]) History of incisional hernia repair 05/16/2024 at [facility] by Emeli Shore MD With MESH H/O colonoscopy (09/22/22) [facility] ileocecectomy 1990s. Repeat ileocolonic resection with anastamosis in 2005 Laparotomy (07/07/17) [facility]: perforation of terminal ileum with ileocolonic resection, primary anastomosis and diverting loop ileostomy. Family History Mother Heart disease AFIB and CHF Social History (Updated 10/12/22 @ 14:57 by Arcelia Lezama [employer]) Smoking/Tobacco Use Status: Current every day Tobacco: How many years used: 30 Quit status: not considering quitting Smoking risk assessment performed?: Yes Alcohol Intake: current Alcohol Intake frequency: a few times a week Alcohol type: beer Drug use: Never Substance use type: marijuana Adopted: No Caregiver/Support person: No Foster care: No Household members: family Housing: other Details: mobile home Number of Children: 3 Communication Needs: None Education Level: high school Do you need help understanding health information?: Never current occupation: Disabled Pets and animals: Yes Pets and animals: dog(s) Sexually active: No Do you think of yourself as: straight/heterosexual Current gender identity: male What is your relationship status?: never How often do you get together with friends or relatives?: twice per week Do you belong to any clubs or organized social groups?: no Panel score (0-1 are the most socially isolated patients): 0 What type of physical activity do you participate in: none and decline to answer Frequency: decline to answer [place]/Pentecostalism: Believes in God Special katy needs: No Seatbelt use: always Helmet use: No Drive intox or ride w/intox 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
[2024-12-12] MEDS: Mupirocin 2% Oint. 22 GM TUBE TP (19:49)
[2024-12-12] MEDS: Ketorolac 10 MG TAB PO (19:49)
[2024-12-12] MEDS: Acetaminophen 500 MG TAB 1000 MG PO (19:50)
[2024-12-12 20:03] LABS: Abs Immature Grans 0.10 10^3/uL (0.0-0.06); HCT 38.2 % (40.0-50.0); HGB 12.0 g/dL (13.5-17.5); Immature Grans % 0.5 %; MCH 26.2 pg (27.0-33.0); MCHC 31.4 % (32.0-36.0); MCV 83 fL (80-95); MPV 9.8 fL (8.0-11.0); Platelet Count 291 10^3/uL (130-400); RBC 4.58 10^6/uL (4.36-5.78); RDW 17.4 % (11.8-14.1); RDW-SD 52.5 fL; WBC 20.18 10^3/uL (4.4-10.8)
[2024-12-12 20:27] LABS: ALT 29 U/L (16-63); AST 29 U/L (15-37); Albumin 3.1 g/dL (3.4-5.0); Alkaline Phosphatase 134 U/L (46-116); Anion Gap 11.3 mmol/L (3-11); BUN 7 mg/dL (7-18); Bilirubin, Total 0.5 mg/dL (0.2-1.0); CO2 26.7 mmol/L (21.0-32.0); Calcium 9.6 mg/dL (8.5-10.1); Chloride 100 mmol/L (98-107); Estimated GFR 93.42 (mL/min/1.73m2); Glucose 100 mg/dL (74-106); Potassium 3.2 mmol/L (3.5-5.1); Sodium 138 mmol/L (136-145); Total Protein 8.3 g/dL (6.4-8.2)
[2024-12-12] MEDS: Sulfameth/Trimeth DS TAB 1 TAB PO (21:45)
[2024-12-12] MEDS: Potassium Chloride 20 MEQ TABCR 40 MEQ PO (21:45)
[2024-12-12 21:51] VITALS: BP 158/97; PULSE 90; RESP 18; O2SAT 95
--- NOTE | 2024-12-14 21:18 | W.ED.FU ---
Follow Up Plan: Called patient at 2118 on 12/14/2024 and told to return to the emergency department for admission, leukocytosis of 20,000 with positive blood cultures for gram-positive cocci. I spoke with patient he states he will return tonight for admission as soon as he is able to locate transportation.
== END 2024-12-12 21:53 | disposition home or self-care (01) ==
PROVIDERS: Emergency Provider Physician Assistant; PCP Family Medicine
DX: L03.811 Cellulitis of head [any part, except face] (principal); F17.210 Nicotine dependence, cigarettes, uncomplicated; Z79.899 Other long term (current) drug therapy
CPT/HCPCS: 36415; 80053; 87040; 87077; 96365; 96366; 99284; 83605; 85025; 87186; 99283; J3373

== ENCOUNTER 2024-12-14 22:12 | Observation (INO) | payer MEDICARE, SELFPAY ==
--- NOTE | 2024-12-14 22:15 | DI.RAD_ITS ---
Exam(s) XR CHEST 2V PA LATERAL EXAM: XR CHEST 2V PA LATERAL CLINICAL HISTORY: fever TECHNIQUE: 2D digital imaging was performed. Two views. COMPARISON: CT CT CHEST/ABD WO from 06/01/2021 FINDINGS: HEART: Normal size. Aorta: Not dilated. PULMONARY VASCULATURE: Normal. MEDIASTINUM: Unremarkable. LUNGS: Clear. PLEURAL SPACE: No pleural effusion or pneumothorax. BONE:Unremarkable for age. SOFT TISSUES: Unremarkable. IMPRESSION: No acute abnormality. The preliminary [facility] report was reviewed. DATA REPOSITORY: RADIATION DOSE DELIVERED:
--- NOTE | 2024-12-14 22:15 | RT.EKG_ITS ---
APPROVED REPORT Exam: Resting ECG Reason for Exam: tachycardia Patient Location: E HR:107 bpm ECG Measurements Heart Rate 107 AXIS MT 138 P 48 QRSd 92 QRS 19 QT 335 T 77 QTc 448 Conclusion Sinus tachycardia, rate 107 No interval abnormalities No STEMI T wave inversion aVL, unchanged Compared to priors QTc no longer prolonged
[2024-12-14 22:16] VITALS: BP 130/90; PULSE 118; RESP 18; TEMP 38.2; O2SAT 97
--- NOTE | 2024-12-14 22:20 | DI.CT_ITS ---
Exam(s) CT HEAD WO EXAM: CT HEAD WO CLINICAL HISTORY: abscess right head, occipital. TECHNIQUE: Imaging Protocol: Axial computed tomography images with coronal and sagittal reformatted images were created and reviewed COMPARISON: No exams were available for comparison FINDINGS: Ventricles and Extra axial spaces: Normal in size and morphology for the patient's age. Hemorrhage: None. Cerebral parenchyma: No evidence of acute infarct or mass. Midline shift: None. Brainstem/Cerebellum: Normal. Bones: No skull or facial fractures. No bony erosions. Visualized Paranasal sinuses:Clear. Mastoids: Clear. Soft Tissues: Marked soft tissue swelling of the scalp posteriorly near the vertex. There is overlying skin thickening. No drainable fluid collection. ORBITS: Unremarkable. PITUITARY: Not enlarged. IMPRESSION: No acute intracranial process. Marked soft tissue swelling of the superior scalp. No drainable abscess. The preliminary [facility] report was reviewed. RADIATION DOSE DELIVERED: Total DLP DATA REPOSITORY: All CT scans at this facility are submitted to the National Radiology Data Registry (NRDR) Dose Index Registry (DIR) with the [employer] (ACR). RADIATION OPTIMIZATION: All CT scans at this facility use at least one of these dose optimization techniques: automated exposure control; mA and/or kV adjustment per patient size (includes targeted exams where dose is matched to clinical indication); or iterative reconstruction.
[2024-12-14 22:24] VITALS: BP 130/90; PULSE 114; RESP 18; RESP 21; TEMP 38.2; O2SAT 96
--- NOTE | 2024-12-14 22:34 | ED.GENADUL_ITS ---
Discharge Plan Disposition Patient Disposition: Admit to [facility] Discharge Details Clinical Impression: Cellulitis of scalp, Gram-positive cocci bacteremia Admit Date/Time: 12/15/24 00:14 Admit Provider: Chandler Weston Attending Provider: Chandler Weston Primary Care Provider: Pb Nielsen ED Provider: Lauren Odonnell Discharge Data Discharge Date/Time-TO BE ENTERED AT DEPARTURE: 12/15/24 00:50 HPI General Date/Time Provider Initiated Documentation: 12/14/24 22:14 . HPI Narrative: 49-year-old male presents with history of immunosuppression on Humira for Crohn's with report of abscess on his scalp which he noted 5 days prior to arrival. He states he took the antibiotics upon arrival here but he was unable to secure transportation to [place] his antibiotics for the outpatient setting so only took the Bactrim in the emergency department. He presents for reevaluation after being called to return secondary to positive blood cultures. Denies history of illicit substance use, cough, shortness of breath, chest pain. He has a history of Crohn's which is well-controlled on Humira and denies any abdominal pain nausea vomiting at this time. He has had chills at home. He did take Tylenol last at 7 PM. Related Data Home Medications ?Medication ?Instructions ?Recorded ?Confirmed acetaminophen 325 mg tablet 650 mg (2 x 325 mg) PO Q6H PRN PRN 07/06/17 12/14/24 (Tylenol) #30 tabs ondansetron HCl 4 mg tablet 4 mg PO Q12H PRN #60 tabs 10/30/20 12/14/24 (Zofran) potassium chloride 20 mEq/15 mL 20 meq (15 mL) PO ALFREDO Y 30 days 10/12/22 12/14/24 oral liquid #750 mL cholecalciferol (vitamin D3) 25 1,000 unit PO DAILY 90 days #12/06/22 12/14/24 mcg (1,000 unit) capsule (Vitamin tab-caps D3) cyanocobalamin (vitamin B-12) 1,000 mcg PO DAILY 90 da ys #90 12/06/22 12/14/24 1,000 mcg tablet (Vitamin B-12) tab-caps adalimumab 40 mg/0.4 mL 40 mg subcut QWEEK 09/28/23 12/14/24 subcutaneous syringe kit (Humira(CF)) Held on 12/14/24. Instructions: Formulary/Insurance omeprazole 40 mg capsule,delayed 40 mg PO DAILY #90 ca ps 06/05/24 12/14/24 release albuterol sulfate 90 mcg/actuation 1 puff inhalation Q 6H PRN 08/31/24 12/14/24 aerosol inhaler shortness of breath or wheez ing #18 grams fluoxetine 40 mg capsule 40 mg PO DAILY 90 days #90 t ab-caps 11/20/24 12/14/24 cyclobenzaprine 5 mg tablet 5 mg PO TID PRN muscle spa sm #90 12/11/24 12/14/24 tabs sulfamethoxazole 800 1 tab PO BID 10 days #20 tab s 12/12/24 12/14/24 mg-trimethoprim 160 mg tablet adalimumab-adbm 40 mg/0.8 mL 40 mg subcut .WEEKLY 11/2012/14/24 subcutaneous pen kit (Cyltezo(CF) Pen) Previous Rx's ?Medication ?Instructions ?Recorded acetaminophen 325 mg tablet 650 mg (2 x 325 mg) PO Q6H PRN PRN 07/06/17 (Tylenol) #30 tabs ondansetron HCl 4 mg tablet 4 mg PO Q12H PRN #60 tabs 10/30/20 (Zofran) potassium chloride 20 mEq/15 mL 20 meq (15 mL) PO ALFREDO Y 30 days 10/12/22 oral liquid #750 mL cholecalciferol (vitamin D3) 25 1,000 unit PO DAILY 90 days #90 12/06/22 mcg (1,000 unit) capsule (Vitamin tab-caps D3) cyanocobalamin (vitamin B-12) 1,000 mcg PO DAILY 90 da ys #90 12/06/22 1,000 mcg tablet (Vitamin B-12) tab-caps omeprazole 40 mg capsule,delayed 40 mg PO DAILY #90 ca ps 06/05/24 release albuterol sulfate 90 mcg/actuation 1 puff inhalation Q 6H PRN 08/31/24 aerosol inhaler shortness of breath or wheez ing #18 grams fluoxetine 40 mg capsule 40 mg PO DAILY 90 days #90 t ab-caps 11/20/24 cyclobenzaprine 5 mg tablet 5 mg PO TID PRN muscle spa sm #90 12/11/24 tabs sulfamethoxazole 800 1 tab PO BID 10 days #20 tab s 12/12/24 mg-trimethoprim 160 mg tablet Allergies Allergy/AdvReac Type Severity Reaction Status Date / Time No Known Allergies Allergy Verified 12/14/24 22:28 General Stated Complaint: GenMedical FERN: 2 Exam Narrative Exam Narrative: Alert and oriented 49-year-old male in no acute distress, approximately 3 inch x 3 inch abscess on occipital region of scalp draining purulent material tender pupils are equal round reactive to light and accommodation there is no meningismus on exam there is no mastoid tenderness lungs are clear to auscultation cardiac rate rhythm sinus tachycardia without murmur, no abdominal tenderness ostomy in place with brown stool Course Vital Signs Vital signs: Vital Signs Temperature 38.2 C H 12/14/24 22:16 Pulse 118 H 12/14/24 22:16 Respiratory Rate 18 12/14/24 22:16 Blood Pressure 130/90 12/14/24 22:16 Pulse Oximetry 97 12/14/24 22:16 Temperature 38.2 C H 12/14/24 22:24 Temperature Source Tympanic 12/14/24 22:24 Pulse 114 H 12/14/24 22:24 Respiratory Rate 21 12/14/24 22:24 Respiratory Effort Normal, Non-Labored 12/14/24 22:24 Respiratory Depth Normal 12/14/24 22:24 Respiratory Pattern Normal 12/14/24 22:24 Blood Pressure 130/90 12/14/24 22:24 Blood Pressure Position Sitting 12/14/24 22:24 Pulse Oximetry 96 12/14/24 22:24 Oxygen Delivery Method Room Air 12/14/24 22:24 Oxygen Flow Rate 0 12/14/24 22:16 Pain Level 8 12/14/24 22:24 Lab/Test Results Lab/Test Results: 12/14/24 22:31 Head - Top Wound Culture - Pending 12/14/24 22:31 Head - Top Gram Stain - Pending 12/14/24 22:22 Blood Blood Culture - Pending 12/14/24 22:22 Blood Blood Culture - Pending Medical Decision Making Results: Pending CT head secondary to abscess with headache and chest x-ray for completeness with fever Assessment and plan: This is a 49-year-old male with positive blood cultures with abscess on scalp which is draining appropriately purulent material was expressed and wound culture was sent. Blood cultures are positive for gram-positive cocci. Temperature of 100.8, will order Tylenol for 2300. CBC, CMP, blood cultures, lactate, chest x-ray, urinalysis pending for completeness. Patient will require admission for IV antibiotics at this time. As the abscess is draining I do not feel as though it needs to be opened additionally. I did express some purulent material. I reviewed the case with Dr. COONEY, who will admit pt post work-up in ED. Quality:SDOH Health Related Social Needs: Health related social needs food insecurity house/econ circumstance Critical Care Time Critical Care Time Attestation: 35 min of CC time secondary to concern for blood cultures requiring telemetry monitoring multiple IV antibiotics, CT imaging of the affected area, diagnostic lab interpretation review, IV fluid resuscitation and admission to the hospital septicemia with positive PFSH All Active Problems (Updated 12/18/24 @ 09:44 by SINAN Gasca) Hypokalemia (Acute) Normocytic anemia (Acute) Gram-positive cocci bacteremia (Acute) Cellulitis of scalp (Acute) Status post ileostomy (Acute) 05/16/2024 at [facility] by Emeli Shore MD Status post small bowel resection (Acute) 05/16/2024 at [facility] by Dr. Emeli Shore Status post colectomy (Acute) 05/16/24 at [facility] Emeli Shore by Unilateral inguinal hernia, without obstruction or gangrene, not specified as recurrent (Acute) Unilateral inguinal hernia, without obstruction or gangrene, recurrent (Acute) Parastomal hernia without obstruction or gangrene (Acute) Incisional hernia without obstruction or gangrene (Acute) Iron deficiency anemia, unspecified (Acute) Normal endoscopic ultrasound of upper gastrointestinal tract (Acute 02/18/23) [facility] Abnormal findings on diagnostic imaging of gall bladder (Acute) PSC (primary sclerosing cholangitis) (Acute) Vitamin D2 deficiency (Acute) Smoker (Acute) Crohn's disease with complication (Acute 07/21/17) remaining small bowel 180 cm, with fistula 05/01/19 F/u at [facility] GI 11/06/21 incomplete flex sig Gynecomastia (Acute) Muscle spasm (Acute) Transaminitis (Acute) Medical History (Updated 12/18/24 @ 09:44 by SINAN Gasca) H/O magnetic resonance imaging 01/19/23- [facility] MRI CHOLANGIOPANCREATOGRAPHY WO CONTRAST. suggestive of PSC; will connect with liver specialist. abnormal appearance of gallbladder, f/u EUS. Emeli Moreno MD;[facility] Gastro Alcohol abuse Tobacco use disorder 03/22 ppd 11/[address] (07/13/17) [place] [facility] [place] [facility] [place] 2-piece [place] Hyponatremia Surgical History (Updated 06/14/24 @ 17:12 by Arcelia Lezama [facility]) History of incisional hernia repair 05/16/2024 at [facility] by Emeli Shore MD With MESH H/O colonoscopy (09/22/22) [facility] ileocecectomy . Repeat ileocolonic resection with anastamosis in 2005 Laparotomy (07/07/17) NVRK: perforation of terminal ileum with ileocolonic resection, primary anastomosis and diverting loop ileostomy. Family History Mother Heart disease AFIB and CHF Social History (Updated 10/12/22 @ 14:57 by Arcelia Lezama [facility]) Smoking/Tobacco Use Status: Current every day Tobacco: How many years used: 30 Quit status: not considering quitting Smoking risk assessment performed?: Yes Alcohol Intake: current Alcohol Intake frequency: a few times a week Alcohol type: beer Drug use: Never Substance use type: marijuana Adopted: No Caregiver/Support person: No Foster care: No Household members: family Housing: house Number of Children: 3 Communication Needs: None Education Level: high school Do you need help understanding health information?: Never current occupation: Disabled Pets and animals: Yes Pets and animals: dog(s) Sexually active: No Do you think of yourself as: straight/heterosexual Current gender identity: male What is your relationship status?: never How often do you get together with friends or relatives?: twice per week Do you belong to any clubs or organized social groups?: no Panel score (0-1 are the most socially isolated patients): 0 What type of physical activity do you participate in: none and decline to answer Frequency: decline to answer Katy/Alevism: Believes in God Special katy needs: No Seatbelt use: always Helmet use: No Drive intox or ride w/intox 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 PAWSS Have you Been Recently Intoxicated or Drunk Within the Last 30 days?: No Have you Ever Experienced Previous Episodes of Alcohol Withdrawal?: No Have you ever Experienced Withdrawal Seizures?: No Have you ever Experienced Delirium Tremens(DT)s?: No Have you ever undergone Alcohol Rehabilitation Treatment (i.e, inpt ot outpatient treatment programs)?: No Have you ever Experienced Blackouts?: No Have you ever Combined Alcohol with other Downers within the last 90 days?: No Have you ever Combined Alcohol with any other Substance of Abuse during the last 90 days?: No Positive Blood Alcohol level on Presentation? [PCS.BAL]: No Evidence of Increased Autonomic Activity (i.e. HR>120, tremor, sweating, agitation, nausea)?: No Result: 0
[2024-12-14 22:53] LABS: Abs Immature Grans 0.11 10^3/uL (0.0-0.06); HCT 33.8 % (40.0-50.0); HGB 10.6 g/dL (13.5-17.5); Immature Grans % 0.6 %; MCH 25.8 pg (27.0-33.0); MCHC 31.4 % (32.0-36.0); MCV 82 fL (80-95); MPV 9.6 fL (8.0-11.0); Platelet Count 302 10^3/uL (130-400); RBC 4.11 10^6/uL (4.36-5.78); RDW 17.7 % (11.8-14.1); RDW-SD 52.2 fL; WBC 19.46 10^3/uL (4.4-10.8)
[2024-12-14 23:10] LABS: ALT 20 U/L (16-63); AST 19 U/L (15-37); Albumin 2.7 g/dL (3.4-5.0); Alkaline Phosphatase 126 U/L (46-116); Anion Gap 12.0 mmol/L (3-11); BUN 7 mg/dL (7-18); Bilirubin, Total 0.3 mg/dL (0.2-1.0); CO2 26.0 mmol/L (21.0-32.0); Calcium 8.7 mg/dL (8.5-10.1); Chloride 100 mmol/L (98-107); Estimated GFR 68.19 (mL/min/1.73m2); Glucose 146 mg/dL (74-106); Potassium 3.0 mmol/L (3.5-5.1); Sodium 138 mmol/L (136-145); Total Protein 7.9 g/dL (6.4-8.2)
[2024-12-14] MEDS: Normal Saline 1,000 ML 1000 ML IV (23:34)
[2024-12-14] MEDS: PIPERACILLIN/TAZO 3.375 GM in Normal Saline 50 ML IVPB (23:34)
[2024-12-14] MEDS: VANCOMYCIN 1,500 MG in Normal Saline 250 ML 166.6666 MG IVPB (23:34)
[2024-12-14] MEDS: Potassium Chloride 20 MEQ TABCR 40 MEQ PO (23:52)
[2024-12-15] VITALS (149 sets, daily range): BP systolic 125–180; BP diastolic 70–155; PULSE 83–106; RESP 14–63; TEMP 36.7–37.7; O2SAT 93–98
[2024-12-15] MEDS: ACETAMINOPHEN 500 MG/50 ML BAG 200 MG IVPB (00:03)
--- NOTE | 2024-12-15 00:27 | HPE_ITS ---
Date of service: 12/15/24 Time of Service: 00:15 Assessment and Plan Assessment and plan (1) Gram-positive cocci bacteremia: Status: Acute Assessment and plan: One of two bottles positive for Gram+ cocci in December 12 blood cultures With immunosuppression, fever, tachycardia, leukocytosis, less likely a contaminant Agree with vancomycin and pip-tazo, will continue Monitor cultures and CBC (2) Cellulitis of scalp: Status: Acute Assessment and plan: Per exam and imaging, any abscess was likely already expressed and now open to air Wound care (3) Hypokalemia: Status: Acute Assessment and plan: Patient is on potassium supplementation at home. He was given KCl 40 meq in the ED Monitor (4) Normocytic anemia: Status: Acute Assessment and plan: History of PABLO, recommend outpatient followup History of Present Illness History of Present Illness Chief Complaint: scalp sore Narrative: Aditya Grossman is a 49 year old man presenting December 14, called back to the ED for positive blood cultures, after being seen December 12 for an infection on the top of his head. He has Crohn disease and is immunosuppressed on adalimumab. Patient noted the scalp wound on the morning of December 07, and also noted pain radiating into the right side of his neck. Today he reports that the wound is still painful and continues to drain pus. He started his PO bactrim today. Patient reports that he has felt chills today. No chest pain, no shortness of breath, no abdominal pain, no N/V/D. In the ED, provider was notified that December 12 blood cultures grew gram positive cocci in one bottle. On return to ED, patient was febrile 38.2, tachycardic 118. EKG with sinus tachycardia. Leukocytosis 19.46 (down from 20.18). Anemia with hemoglobin 10.6 down from 12. Hypokalemia 3.0. CXR unremarkable. CT head showed superficial inflammation without fluid pocket nor bony involvement. He was given fluids and started on antibiotics. PMH includes Crohn disease on immunosuppression. Partial colectomy with ileostomy. Depression on fluoxetine. GERD on PPI. PFSH All Active Problems (Updated 12/15/24 @ 02:39 by Chandler Weston MD) Hypokalemia (Acute) Normocytic anemia (Acute) Gram-positive cocci bacteremia (Acute) Cellulitis of scalp (Acute) Status post ileostomy (Acute) 05/16/2024 at [facility] [place] by Emeli Shore MD Status post small bowel resection (Acute) 05/16/2024 at [facility] [place] by Dr. Emeli Shore Status post colectomy (Acute) 05/16/24 at [facility] [place] Emeli Shore by Unilateral inguinal hernia, without obstruction or gangrene, not specified as recurrent (Acute) Unilateral inguinal hernia, without obstruction or gangrene, recurrent (Acute) Parastomal hernia without obstruction or gangrene (Acute) Incisional hernia without obstruction or gangrene (Acute) Iron deficiency anemia, unspecified (Acute) Normal endoscopic ultrasound of upper gastrointestinal tract (Acute 02/18/23) [facility] [place] Abnormal findings on diagnostic imaging of gall bladder (Acute) PSC (primary sclerosing cholangitis) (Acute) Vitamin D2 deficiency (Acute) Smoker (Acute) Crohn's disease with complication (Acute 07/21/17) remaining small bowel 180 cm, with fistula 05/01/19 F/u at [facility] [place] GI 11/06/21 incomplete flex sig Gynecomastia (Acute) Muscle spasm (Acute) Transaminitis (Acute) Medical History (Updated 12/15/24 @ 02:39 by Chandler Weston MD) H/O magnetic resonance imaging 01/19/23- [facility] [place] MRI CHOLANGIOPANCREATOGRAPHY WO CONTRAST. suggestive of PSC; will connect with liver specialist. abnormal appearance of gallbladder, f/u EUS. Emeli Moreno MD;[facility] [place] Gastro Alcohol abuse Tobacco use disorder 03/22 ppd 11/[address] (07/13/17) managed by [facility] at [facility] [place] holister 2-piece pouch Hyponatremia Surgical History (Updated 06/14/24 @ 17:12 by Arcelia Lezama [facility]) History of incisional hernia repair 05/16/2024 at [facility] [place] by Emeli Shore MD With MESH H/O colonoscopy (09/22/22) [facility] [place] ileocecectomy . Repeat ileocolonic resection with anastamosis in 2005 Laparotomy (07/07/17) NVRK: perforation of terminal ileum with ileocolonic resection, primary anastomosis and diverting loop ileostomy. Family History Mother Heart disease AFIB and CHF Social History (Updated 10/12/22 @ 14:57 by ROBERTO Ballesteros Smoking/Tobacco Use Status: Current every day Tobacco: How many years used: 30 Quit status: not considering quitting Smoking risk assessment performed?: Yes Alcohol Intake: current Alcohol Intake frequency: a few times a week Alcohol type: beer Drug use: Never Substance use type: marijuana Adopted: No Caregiver/Support person: No Foster care: No Household members: family Housing: other Details: mobile home Number of Children: 3 Communication Needs: None Education Level: high school Do you need help understanding health information?: Never current occupation: Disabled Pets and animals: Yes Pets and animals: dog(s) Sexually active: No Do you think of yourself as: straight/heterosexual Current gender identity: male What is your relationship status?: never How often do you get together with friends or relatives?: twice per week Do you belong to any clubs or organized social groups?: no Panel score (0-1 are the most socially isolated patients): 0 What type of physical activity do you participate in: none and decline to answer Frequency: decline to answer Katy/Christian: Believes in God Special katy needs: No Seatbelt use: always Helmet use: No Drive intox or ride w/intox 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 Meds Allergies and Home Medications Allergies Allergy/AdvReac Type Severity Reaction Status Date / Time No Known Allergies Allergy Verified 12/14/24 22:28 Home Medications ?Medication ?Instructions ?Recorded ?Confirmed ?Type acetaminophen 325 mg tablet 650 mg (2 x 325 mg) PO Q6H PRN PRN 07/06/17 12/14/24 Rx (Tylenol) #30 tabs ondansetron HCl 4 mg tablet 4 mg PO Q12H PRN #60 tabs 10/30/20 12/14/24 Rx (Zofran) potassium chloride 20 mEq/15 mL 20 meq (15 mL) PO ALFREDO Y 30 days 10/12/22 12/14/24 Rx oral liquid #750 mL cholecalciferol (vitamin D3) 25 1,000 unit PO DAILY 90 days #90 12/06/22 12/14/24 Rx mcg (1,000 unit) capsule (Vitamin tab-caps D3) cyanocobalamin (vitamin B-12) 1,000 mcg PO DAILY 90 da ys #90 12/06/22 12/14/24 Rx 1,000 mcg tablet (Vitamin B-12) tab-caps adalimumab 40 mg/0.4 mL 40 mg subcut QWEEK 09/28/23 12/14/24 History subcutaneous syringe kit (Humira(CF)) Held on 12/14/24. Instructions: Formulary/Insurance omeprazole 40 mg capsule,delayed 40 mg PO DAILY #90 ca ps 06/05/24 12/14/24 Rx release albuterol sulfate 90 mcg/actuation 1 puff inhalation Q 6H PRN 08/31/24 12/14/24 Rx aerosol inhaler shortness of breath or wheez ing #18 grams fluoxetine 40 mg capsule 40 mg PO DAILY 90 days #90 t ab-caps 11/20/24 12/14/24 Rx cyclobenzaprine 5 mg tablet 5 mg PO TID PRN muscle spa sm #90 12/11/24 12/14/24 Rx tabs sulfamethoxazole 800 1 tab PO BID 10 days #20 tab s 12/12/24 12/14/24 Rx mg-trimethoprim 160 mg tablet adalimumab-adbm 40 mg/0.8 mL 40 mg subcut .WEEKLY 11/2012/14/24 History subcutaneous pen kit (Cyltezo(CF) Pen) Exam Narrative Exam Narrative: General: This is a very pleasant man in no distress HEENT: Normocephalic. Top of scalp with 1 cm raised wound in 4 cm erythematous field, draining clear fluid. Tender. No palpable lymph nodes. CV: Tachycardia, no murmur Resp: CTAB Abd: soft, NTND. Ostomy bag with greenish brown stool, stoma appears healthy MSK: voluntary motion x4 Neuro: awake, alert, no focal deficits Results Labs 12/14/24 22:45 12/14/24 22:45 Labs: Laboratory Results - last 24 hr 12/14/24 22:45 WBC 19.46 H RBC 4.11 L Hgb 10.6 L Hct 33.8 L MCV 82 MCH 25.8 L MCHC 31.4 L RDW 17.7 H Plt Count 302 MPV 9.6 Immature Gran % 0.6 Neutrophils % 77.9 Lymphocytes % 13.6 Monocytes % 6.3 Eosinophils % 1.2 Basophils % 0.4 Nucleated RBC % 0.0 Absolute Neutrophils 15.16 H Absolute Lymphocytes 2.65 Absolute Monocytes 1.23 H Absolute Eosinophils 0.23 Absolute Basophils 0.08 VBG Lactate 1.5 Sodium 138 Potassium 3.0 L Chloride 100 Carbon Dioxide 26.0 Anion Gap 12.0 H BUN 7 Creatinine 1.3 Est GFR (CKD-EPI 2020) 68.19 Glucose 146 H Calcium 8.7 Total Bilirubin 0.3 AST 19 ALT 20 Alkaline Phosphatase 126 H Total Protein 7.9 Albumin 2.7 L Last Vital Signs Temp 38.2 C H 12/14/24 22:24 Pulse 114 H 12/14/24 22:24 Resp 21 12/14/24 22:24 BP 130/90 12/14/24 22:24 Pulse Ox 96 12/14/24 22:24 PAWSS Have you Been Recently Intoxicated or Drunk Within the Last 30 days?: No Have you Ever Experienced Previous Episodes of Alcohol Withdrawal?: No Have you ever Experienced Withdrawal Seizures?: No Have you ever Experienced Delirium Tremens(DT)s?: No Have you ever undergone Alcohol Rehabilitation Treatment (i.e, inpt ot outpatient treatment programs)?: No Have you ever Experienced Blackouts?: No Have you ever Combined Alcohol with other Downers within the last 90 days?: No Have you ever Combined Alcohol with any other Substance of Abuse during the last 90 days?: No Positive Blood Alcohol level on Presentation? [PCS.BAL]: No Evidence of Increased Autonomic Activity (i.e. HR>120, tremor, sweating, agitation, nausea)?: No Result: 0 Time Spent Time spent with Patient: 40-54 minutes Time was spent: preparing to see the patient(eg.review tests), obtaining and/or reviewing separately otained hiistory, ordering medications,tests, procedures, referring, communicating with other health respiratory care assistant, indepentently interpreting results, counseling the patient and care coordination
--- NOTE | 2024-12-15 00:30 | DI.VRAD_ITS ---
PROCEDURE INFORMATION: Exam: CT Head Without Contrast Exam date and time: 12/14/2024 11:43 PM Age: 49 years old Clinical indication: Other: Abscess right head, occipital TECHNIQUE: Imaging protocol: Computed tomography of the head without contrast. COMPARISON: No relevant prior studies available. FINDINGS: Brain: No brain edema. No intracranial hemorrhage. Cerebral ventricles: No ventriculomegaly. Paranasal sinuses: Visualized sinuses are unremarkable. No fluid levels. Mastoid air cells: Unremarkable. Bones: See Soft tissues finding. Soft tissues: There is induration/infiltration of the subcutaneous tissue of the superior right parietal scalp which protrude from the overlying skin, but there no associated drainable fluid collection or soft tissue gas. No erosion of the subjacent skull. Findings most likely signify local infection, possibly with recently expressed abscess. Neoplastic infiltration not excluded. IMPRESSION: 1. There is induration/infiltration of the subcutaneous tissue of the superior right parietal scalp which protrude from the overlying skin, but there no associated drainable fluid collection or soft tissue gas. No erosion of the subjacent skull. Findings most likely signify local infection, possibly with recently expressed abscess. Neoplastic infiltration not excluded. 2. No acute brain findings. Dictated and Authenticated by: Ronald Hewitt MD. Orderin Blas Aguilar MD
--- NOTE | 2024-12-15 00:36 | DI.VRAD_ITS ---
PROCEDURE INFORMATION: Exam: XR Chest Exam date and time: 12/14/2024 11:47 PM Age: 49 years old Clinical indication: Fever TECHNIQUE: Imaging protocol: Radiologic exam of the chest. Views: 2 views. COMPARISON: CT CHEST/ABD WO 06/01/2021 3:47 PM FINDINGS: Lungs: Unremarkable. No consolidation. Pleural spaces: Unremarkable. No pleural effusion. No pneumothorax. Heart/Mediastinum: Unremarkable. No cardiomegaly. Bones/joints: Unremarkable. IMPRESSION: No acute findings. Dictated and Authenticated by: Ronald Hewitt MD. Orderin Blas Aguilar MD
[2024-12-15 00:48] LABS: Glucose Negative (Negative)
[2024-12-15 00:53] LABS: WBC Negative HPF (0-5)
[2024-12-15 00:54] LABS: C & S Indicated? No
[2024-12-15] MEDS: Butalbital/Acetaminophen/Caffeine 50/325/40 TAB PO ×3 (03:45→21:17)
[2024-12-15 05:30] LABS: Abs Immature Grans 0.12 10^3/uL (0.0-0.06); HCT 32.9 % (40.0-50.0); HGB 10.5 g/dL (13.5-17.5); Immature Grans % 0.6 %; MCH 26.2 pg (27.0-33.0); MCHC 31.9 % (32.0-36.0); MCV 82 fL (80-95); MPV 9.3 fL (8.0-11.0); Platelet Count 291 10^3/uL (130-400); RBC 4.01 10^6/uL (4.36-5.78); RDW 17.4 % (11.8-14.1); RDW-SD 51.9 fL; WBC 19.44 10^3/uL (4.4-10.8)
[2024-12-15 06:06] LABS: ALT 17 U/L (16-63); AST 19 U/L (15-37); Albumin 2.4 g/dL (3.4-5.0); Alkaline Phosphatase 113 U/L (46-116); Anion Gap 9.0 mmol/L (3-11); BUN 4 mg/dL (7-18); Bilirubin, Total 0.3 mg/dL (0.2-1.0); CO2 26.0 mmol/L (21.0-32.0); Calcium 8.6 mg/dL (8.5-10.1); Chloride 103 mmol/L (98-107); Estimated GFR 106.01 (mL/min/1.73m2); Glucose 106 mg/dL (74-106); Magnesium 1.2 mg/dL (1.8-2.4); Potassium 3.3 mmol/L (3.5-5.1); Sodium 138 mmol/L (136-145); Total Protein 7.1 g/dL (6.4-8.2)
[2024-12-15] MEDS: PIPERACILLIN/TAZO 3.375 GM in Normal Saline 50 ML IVPB ×3 (07:01→17:36)
[2024-12-15] MEDS: Acetaminophen 325 MG TAB 650 MG PO ×2 (07:37→16:09)
[2024-12-15] MEDS: Cyclobenzaprine 10 MG TAB PO ×2 (08:46→21:17)
[2024-12-15] MEDS: FLUoxetine 20 MG CAP 40 MG PO (09:17)
[2024-12-15 11:34] LABS: Vancomycin, Trough 10.6 ug/mL (10.0-20.0)
[2024-12-15] MEDS: VANCOMYCIN/WATER (PEG) 1.25 GM/250 ML BAG IVPB ×2 (12:04→23:39)
[2024-12-15] MEDS: POTASSIUM CHLORIDE 20 MEQ/100 ML BAG 50 MEQ IV_INF ×2 (13:57→16:11)
--- NOTE | 2024-12-15 14:52 | W.PC.ACHO ---
Registration Status: ADM SHAMAR Primary Language: Preferred Language: Romansh ED Information & Data Chief Complaint GenMedical 12/14/24 22:36 Other Complaint Recheck 12/14/24 22:16 Triage Note Pt seen 12/12 evening for 12/14/24 22:16 infected seeming bug bite. D /c'd w/ bactrim. Blood cultures returned +, pt called to return for re- assessment. Reports he took bactrim doses sent home w/ and missed 24hrs worth of abx d/t delay in delivery of remaining course. Reports neck and head pain improved, but new onset MULLINS, reports ' hot flashes' and chills. Unsure if having fevers b/c he has no access to thermometer. Last dose of acetaminophen 1900 Medical / Surgical History (Last Updated 02/01/23 @ 11:28 by Irina Starks RN) H/O magnetic resonance imaging Alcohol abuse Tobacco use disorder Ileostomy in place (07/13/17) Hyponatremia (Last Updated 06/14/24 @ 17:12 by Arcelia Lezama [facility]) History of incisional hernia repair H/O colonoscopy (09/22/22) ileocecectomy Laparotomy (07/07/17) Most Recent Vital Signs Temperature 37.7 C H 12/15/24 14:40 Temperature Source Oral 12/15/24 08:05 Pulse 102 H 12/15/24 14:40 Pulse Rhythm Regular 12/15/24 14:40 Pulse 93 H 12/15/24 12:07 Respiratory Rate 20 12/15/24 14:40 Respiratory Effort Normal 12/15/24 14:40 Respiratory Depth Normal 12/15/24 14:40 Respiratory Pattern Normal 12/15/24 14:40 Blood Pressure 141/85 H 12/15/24 14:40 Blood Pressure Mean 117 12/15/24 12:07 Blood Pressure Position Right Lateral 12/15/24 07:12 Pulse Oximetry 93 12/15/24 14:40 Oxygen Delivery Method Room Air 12/15/24 14:40 Oxygen Flow Rate 0 12/15/24 14:40 Pain Level 6 12/15/24 08:43 Allergies No Known Allergies Allergy (Verified 12/14/24 22:28) Precautions Isolation Standard precaution 12/14/24 22:23 Active Medications Generic Name Dose Route Start Last Admin Trade Name Freq PRN Reason Stop Dose Admin Acetaminophen 650 mg 12/15/24 00:14 12/15/24 07:37 Acetaminophen 325 Mg Tab PO 650 mg Q4H PRN PRN Administration Acetaminophen/Butalbital/Caffeine 2 tab 12/15/24 02:58 12/15/24 08:10 Butalbital/Acetaminophen/Caffeine 50/325/40 Tab PO 2 tab Q4H PRN PRN Administration Cyclobenzaprine HCl 10 mg 12/15/24 07:46 12/15/24 08:46 Cyclobenzaprine 10 Mg Tab PO 10 mg TID PRN PRN Administration Fluoxetine HCl 40 mg 12/15/24 08:30 12/15/24 09:17 Fluoxetine 20 Mg Cap PO 40 mg DAILY HERNANDO Administration Piperacillin Sod/Tazobactam 50 mls @ 100 mls/hr 12/15/24 06:00 12/15/24 12:54 Sod 3.375 gm/ Sodium Chloride IVPB Infused Q6H HERNANDO Infusion Vancomycin/PEG/NADA/Lysine/Water 1.25 gm in 250 mls @ 166.667 mls/hr 12/15/24 12:00 12/15/24 12:04 Vancocin Injection IVPB 166.667 mls/hr Q12H HERNANDO Administration Potassium Chloride 20 meq in 100 mls @ 50 mls/hr 12/15/24 13:00 12/15/24 13:57 IV_INF 12/15/24 16:59 50 mls/hr Q2H HERNANDO Administration Sodium Chloride 0 ml 12/15/24 08:30 12/15/24 08:46 Normal Saline Flush 10 Ml Syr IVP Not Given BID HERNANDO IV IV Catheter Type [Left Upper Saline Lock arm] IV Catheter Type [Right Peripheral IV Forearm] IV Catheter Type [Right Peripheral IV Antecubital] IV Catheter Gauge [Left Upper 18 arm] IV Catheter Gauge [Right 18 Forearm] IV Catheter Gauge [Right 18 Antecubital] Diet Orders Category Date Time Status Regular/Normal [DIET] Nutrition 12/15/24 Breakfast Active Diagnostics 12/15/24 12/15/24 12/15/24 Range/Units 11:08 05:25 00:34 WBC 19.44 H (4.4-10.8) 10^3/uL RBC 4.01 L (4.36-5.78) 10^6/uL Hgb 10.5 L (13.5-17.5) g/dL Hct 32.9 L (40.0-50.0) % MCV 82 (80-95) fL MCH 26.2 L (27.0-33.0) pg MCHC 31.9 L (32.0-36.0) % RDW 17.4 H (11.8-14.1) % Plt Count 291 (130-400) 10^3/uL MPV 9.3 (8.0-11.0) fL Immature Gran % 0.6 % Neutrophils % 80.8 % Lymphocytes % 10.4 % Monocytes % 6.6 % Eosinophils % 1.3 % Basophils % 0.3 % Nucleated RBC % 0.0 (0.0-0.3) % Absolute Neutrophils 15.71 H (1.2-6.7) 10^3/uL Absolute Lymphocytes 2.02 (1.2-3.4) 10^3/uL Absolute Monocytes 1.28 H (0.1-0.8) 10^3/uL Absolute Eosinophils 0.25 (0.0-0.7) 10^3/uL Absolute Basophils 0.06 (0.0-0.2) 10^3/uL VBG Lactate (<or=2.0) mmol/L Sodium 138 (136-145) mmol/L Potassium 3.3 L (3.5-5.1) mmol/L Chloride 103 (98-107) mmol/L Carbon Dioxide 26.0 (21.0-32.0) mmol/L Anion Gap 9.0 (3-11) mmol/L BUN 4 L (7-18) mg/dL Creatinine 0.9 (0.70-1.30) mg/dL Est GFR (CKD-EPI 2020) 106.01 (mL/min/1.73m2) Glucose 106 (74-106) mg/dL Calcium 8.6 (8.5-10.1) mg/dL Magnesium 1.2 L (1.8-2.4) mg/dL Total Bilirubin 0.3 (0.2-1.0) mg/dL AST 19 (15-37) U/L ALT 17 (16-63) U/L Alkaline Phosphatase 113 (46-116) U/L Total Protein 7.1 (6.4-8.2) g/dL Albumin 2.4 L (3.4-5.0) g/dL Urine Color Yellow (Yellow) Urine Clarity Clear (Clear) Urine pH 6.0 (5-8) Ur Specific [place] 1.025 (1.005-1.025) Urine Protein Negative (Neg-Trace) mg/dL Urine Ketones Negative (Negative) mg/dL Urine Blood Small H (Negative) Urine Nitrite Negative (Negative) Urine Bilirubin Negative (Negative) Urine Urobilinogen 0.2 (Up to 0.2) mg/dL Ur Leukocyte Esterase Negative (Negative) Urine RBC 3-5 H (0-2) HPF Urine WBC Negative (0-5) HPF Ur Epithelial Cells Negative (Negative) HPF Urine Crystals Negative (Negative) HPF Urine Bacteria Rare (Negative) HPF Urine Casts Negative (Negative) LPF Urine Mucus Trace (Negative) Ur Culture Indicated? No Urine Glucose Negative (Negative) mg/dL Vancomycin Trough 10.6 (10.0-20.0) ug/mL 12/14/24 Range/Units 22:45 WBC 19.46 H (4.4-10.8) 10^3/uL RBC 4.11 L (4.36-5.78) 10^6/uL Hgb 10.6 L (13.5-17.5) g/dL Hct 33.8 L (40.0-50.0) % MCV 82 (80-95) fL MCH 25.8 L (27.0-33.0) pg MCHC 31.4 L (32.0-36.0) % RDW 17.7 H (11.8-14.1) % Plt Count 302 (130-400) 10^3/uL MPV 9.6 (8.0-11.0) fL Immature Gran % 0.6 % Neutrophils % 77.9 % Lymphocytes % 13.6 % Monocytes % 6.3 % Eosinophils % 1.2 % Basophils % 0.4 % Nucleated RBC % 0.0 (0.0-0.3) % Absolute Neutrophils 15.16 H (1.2-6.7) 10^3/uL Absolute Lymphocytes 2.65 (1.2-3.4) 10^3/uL Absolute Monocytes 1.23 H (0.1-0.8) 10^3/uL Absolute Eosinophils 0.23 (0.0-0.7) 10^3/uL Absolute Basophils 0.08 (0.0-0.2) 10^3/uL VBG Lactate 1.5 (<or=2.0) mmol/L Sodium 138 (136-145) mmol/L Potassium 3.0 L (3.5-5.1) mmol/L Chloride 100 (98-107) mmol/L Carbon Dioxide 26.0 (21.0-32.0) mmol/L Anion Gap 12.0 H (3-11) mmol/L BUN 7 (7-18) mg/dL Creatinine 1.3 (0.70-1.30) mg/dL Est GFR (CKD-EPI 2020) 68.19 (mL/min/1.73m2) Glucose 146 H (74-106) mg/dL Calcium 8.7 (8.5-10.1) mg/dL Magnesium (1.8-2.4) mg/dL Total Bilirubin 0.3 (0.2-1.0) mg/dL AST 19 (15-37) U/L ALT 20 (16-63) U/L Alkaline Phosphatase 126 H (46-116) U/L Total Protein 7.9 (6.4-8.2) g/dL Albumin 2.7 L (3.4-5.0) g/dL Urine Color (Yellow) Urine Clarity (Clear) Urine pH (5-8) Ur Specific [place] (1.005-1.025) Urine Protein (Neg-Trace) mg/dL Urine Ketones (Negative) mg/dL Urine Blood (Negative) Urine Nitrite (Negative) Urine Bilirubin (Negative) Urine Urobilinogen (Up to 0.2) mg/dL Ur Leukocyte Esterase (Negative) Urine RBC (0-2) HPF Urine WBC (0-5) HPF Ur Epithelial Cells (Negative) HPF Urine Crystals (Negative) HPF Urine Bacteria (Negative) HPF Urine Casts (Negative) LPF Urine Mucus (Negative) Ur Culture Indicated? Urine Glucose (Negative) mg/dL Vancomycin Trough (10.0-20.0) ug/mL 12/14/24 22:31 Wound Culture - Preliminary Head - Top Gram positive callie, mixed Gram Stain - Final 12/14/24 23:27 Blood Culture - Pending Blood 12/14/24 22:45 Blood Culture - Pending Blood Intake and Output - 24 Hour Total 12/14/24 22:12 thru 12/15/24 12:54 Intake Total 1450 Output Total 550 Balance 900 Weight 78.018 kg Intake: IV 1450 Output: Urine 550 Other: Stool Size Moderate Stool Characteristics Liquid [place] Risk Assessment History of Falls No History 12/15/24 14:40 Contributing Factors No Factors 12/15/24 14:40 Ambulatory Aids Independent 12/15/24 14:40 Tubes/Lines W/no contributing factors 12/15/24 14:40 Gait Evaluation No gait disturbance 12/15/24 14:40 Cognition No cognitive impairment 12/15/24 14:40 Fall Total Score 10 12/15/24 14:40 Level of Risk Standard/Low Risk 12/15/24 14:40 Problems (Last Updated 02/01/23 @ 11:28 by Irina Starks RN) Hypokalemia (Acute) Normocytic anemia (Acute) Gram-positive cocci bacteremia (Acute) Cellulitis of scalp (Acute) v v v v v v v v v Sending and/or Receiving Nurses: Please use comment section below to note any information pertinent to the patient hand-off not included above. Information / Comments: pt in room 226. on RA. has KCL running via iv. Report received from: Dary @[id number]
--- NOTE | 2024-12-15 15:28 | PDOC.CMIN ---
Date of service: 12/15/24 Time of Service: 15:28 Care Management Initial Assmt Initial Assessment Reason for Hospitalization: Bacteremia Functional Status/Living Situation Patient Presentation: Christelier who prefers 'Kvng' was sitting up in bed when CM met with him. Kvng presented to the ED 12/12 with report of abscess on his scalp which he noted 5 days prior to arrival. He presented to the ED yesterday evening for reevalutation after being called to return secondary to positive blood culture; see ED documentation. Today, Kvng states he is feeling better but sore rating his discomfort 10; RN notified. 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 He states that he is independent at baseline and primarily uses [facility] for his transportation needs. Kvng shared that his medications are mailed to him weekly by [employer] (states they are delivered). He is not currently connected to any community support services but expressed openness to learning about available resources, despite not feeling an immediate need. CM provided Kvng with a [facility] pamphlet and [facility] information. CM will continue to follow. Town of Residence: [place]; Mailing address is technically [place] Resides with: Alone Significant Other/Family: Local (He has children - distant relationship and family moving to the area from [facility]) Natural Supports: mother Employment Status: Disabled Instrumental Activities of Daily Living (ADLs): Independent Medications Medication Management: Issues/Barriers (Transportation to receive new medications but otherwise [employer] mails them ) with Obtaining Physical Functioning/Mobility Assistive Device: none Advance Directives Advance Directives: Do you have an Advance Directive: N 10/26/12, 13:38 AD On File at [facility]: N 10/26/12, 13:38 Date Asked 12/12/24 12/12/24, 18:42 AD Date Reviewed COLST On File at [facility] COLST Date Scanned Code Status Resuscitation Status Full Code Portal Pt does not currently have a portal and education provided: Yes Insurance Coverage/Financial Issues Insurance: AARP/.[facility] - [id number] Care Team Visit Care Team Role Provider Type Pb Nielsen DO Primary Care Provider OSTEOPATHIC DOCTOR SINAN Gasca Emergency Provider [facility] LIAISON Chandler Weston MD Admit Provider [facility] STAFF PHYSICIAN Attending Provider Discharge Potential Discharge Needs: PCP F/U Appt Anticipated Barriers to Discharge: None Identified Patient/Family Education Needs: Review discharge instructions, discuss Ask Me Three Transportation: Private vehicle (vs [facility]) Plan: Anticipate Kvng will be discharged home once medcially ready, no new services indicated at this time. It is recommended he follow up with his community proivders and discharge plan of care. He will transport via private vehicle by [facility] vs family. [facility] and [facility] information provided to this patient. CM will continue to follow. Social Determinants of Health Screening Social Determinants of health last assessed in clinic: 12/15/24 Will the Patient Participate in the Screening?: Yes Do you worry about having a steady place to live?: no Problems where you live: no known problems In the past 12 months, have you had to go without electric, gas, oil or water in your home?: no 1. Within the past 12 months, we worried whether our food would run out before we got money to buy more.: Don't know/refused 2. Within the past 12 months, the food we bought just didn't last and we didn't have money to get more.: Don't know/refused Has lack of transportation kept you from medical appointments or from doing things needed for daily living?: no Has anyone in your life made you feel unsafe or unsupported?: no How hard is it for you to pay for the very basics like food, housing, medical care, and heating? Would you say it is:: Not hard at all Do you want help finding or keeping work or a job?: I do not need or want help If for any reason you need help with day-to-day activities such as bathing, preparing meals, shopping, managing finances, etc., do you get the help you need?: I don?t need any help How often do you feel lonely or isolated from those around you?: Never Do you speak a language other than Azerbaijani at home?: No Does the patient want assistance with any of the above?: No PFSH All Active Problems (Updated 12/15/24 @ 02:39 by Chandler Weston MD) Hypokalemia (Acute) Normocytic anemia (Acute) Gram-positive cocci bacteremia (Acute) Cellulitis of scalp (Acute) Status post ileostomy (Acute) 05/16/2024 at [facility] by Emeli Shore MD Status post small bowel resection (Acute) 05/16/2024 at [facility] by Dr. Emeli Shore Status post colectomy (Acute) 05/16/24 at [facility] Emeli Shore by Unilateral inguinal hernia, without obstruction or gangrene, not specified as recurrent (Acute) Unilateral inguinal hernia, without obstruction or gangrene, recurrent (Acute) Parastomal hernia without obstruction or gangrene (Acute) Incisional hernia without obstruction or gangrene (Acute) Iron deficiency anemia, unspecified (Acute) Normal endoscopic ultrasound of upper gastrointestinal tract (Acute 02/18/23) [facility] Abnormal findings on diagnostic imaging of gall bladder (Acute) PSC (primary sclerosing cholangitis) (Acute) Vitamin D2 deficiency (Acute) Smoker (Acute) Crohn's disease with complication (Acute 07/21/17) remaining small bowel 180 cm, with fistula 05/01/19 F/u at [facility] GI 11/06/21 incomplete flex sig Gynecomastia (Acute) Muscle spasm (Acute) Transaminitis (Acute) Medical History (Updated 12/15/24 @ 02:39 by Chandler Weston MD) H/O magnetic resonance imaging 01/19/23- [facility] MRI CHOLANGIOPANCREATOGRAPHY WO CONTRAST. suggestive of PSC; will connect with liver specialist. abnormal appearance of gallbladder, f/u EUS. Emeli Moreno MD;[facility] Gastro Alcohol abuse Tobacco use disorder 03/22 ppd 11/[address] (07/13/17) [facility] [place] 2-piece pouch Hyponatremia Surgical History (Updated 06/14/24 @ 17:12 by Arcelia Lezama CMA) History of incisional hernia repair 05/16/2024 at [facility] by Emeli Shore MD With MESH H/O colonoscopy (09/22/22) [facility] ileocecectomy . Repeat ileocolonic resection with anastamosis in 2005 Laparotomy (07/07/17) [facility]: perforation of terminal ileum with ileocolonic resection, primary anastomosis and diverting loop ileostomy. Family History Mother Heart disease AFIB and CHF Social History (Updated 10/12/22 @ 14:57 by Arcelia Lezama CMA) Smoking/Tobacco Use Status: Current every day Tobacco: How many years used: 30 Quit status: not considering quitting Smoking risk assessment performed?: Yes Alcohol Intake: current Alcohol Intake frequency: a few times a week Alcohol type: beer Drug use: Never Substance use type: marijuana Adopted: No Caregiver/Support person: No Foster care: No Household members: family Housing: house Number of Children: 3 Communication Needs: None Education Level: high school Do you need help understanding health information?: Never current occupation: Disabled Pets and animals: Yes Pets and animals: dog(s) Sexually active: No Do you think of yourself as: straight/heterosexual Current gender identity: male What is your relationship status?: never How often do you get together with friends or relatives?: twice per week Do you belong to any clubs or organized social groups?: no Panel score (0-1 are the most socially isolated patients): 0 What type of physical activity do you participate in: none and decline to answer Frequency: decline to answer Katy/Gnosticism: Believes in God Special katy needs: No Seatbelt use: always Helmet use: No Drive intox or ride w/intox party bus 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 Readmission Within the Past 30 Days Yes or No: No
[2024-12-15] MEDS: MAGNESIUM SULFATE 2 GM/50 ML BAG IV_INF (23:33)
[2024-12-15] MEDS: Normal Saline Flush 10 ML SYR IVP (23:46)
[2024-12-16] MEDS: Ketorolac 15 MG/ML VIAL IVP ×2 (01:09→20:07)
[2024-12-16] MEDS: Normal Saline Flush 10 ML SYR IVP ×5 (01:10→20:07)
[2024-12-16] MEDS: Cyclobenzaprine 10 MG TAB PO ×2 (05:26→17:09)
[2024-12-16 05:55] VITALS: TEMP 37
[2024-12-16 06:41] LABS: Abs Immature Grans 0.19 10^3/uL (0.0-0.06); HCT 35.0 % (40.0-50.0); HGB 10.9 g/dL (13.5-17.5); Immature Grans % 1.1 %; MCH 25.8 pg (27.0-33.0); MCHC 31.1 % (32.0-36.0); MCV 83 fL (80-95); MPV 9.7 fL (8.0-11.0); Platelet Count 345 10^3/uL (130-400); RBC 4.23 10^6/uL (4.36-5.78); RDW 17.4 % (11.8-14.1); RDW-SD 52.1 fL; WBC 17.77 10^3/uL (4.4-10.8)
[2024-12-16 07:19] LABS: ALT 18 U/L (16-63); AST 20 U/L (15-37); Albumin 2.6 g/dL (3.4-5.0); Alkaline Phosphatase 132 U/L (46-116); Anion Gap 10.1 mmol/L (3-11); BUN 10 mg/dL (7-18); Bilirubin, Total 0.3 mg/dL (0.2-1.0); CO2 24.9 mmol/L (21.0-32.0); Calcium 9.3 mg/dL (8.5-10.1); Chloride 100 mmol/L (98-107); Estimated GFR 106.01 (mL/min/1.73m2); Glucose 89 mg/dL (74-106); Potassium 3.4 mmol/L (3.5-5.1); Sodium 135 mmol/L (136-145); Total Protein 8.1 g/dL (6.4-8.2)
[2024-12-16 07:23] VITALS: BP 111/75; PULSE 78; RESP 16; TEMP 36.5; O2SAT 99
[2024-12-16] MEDS: FLUoxetine 20 MG CAP 40 MG PO (08:53)
[2024-12-16] MEDS: Acetaminophen 325 MG TAB 650 MG PO ×2 (08:53→17:08)
[2024-12-16] MEDS: Omeprazole 20 MG CAPCR 40 MG PO (10:27)
[2024-12-16 11:39] LABS: Vancomycin, Trough 14.1 ug/mL (10.0-20.0)
[2024-12-16] MEDS: VANCOMYCIN/WATER (PEG) 1.25 GM/250 ML BAG IVPB (12:18)
--- NOTE | 2024-12-16 14:06 | W.PM.PROGNOT ---
Date of Service Date of service: 12/16/24 Time of Service: 14:06 Assessment and Plan Assessment and plan (1) Gram-positive cocci bacteremia: Status: Acute Assessment and plan: One of two bottles positive for Gram+ cocci in December 12 blood cultures With immunosuppression, fever, tachycardia, leukocytosis, less likely a contaminant on vancomycin and pip-tazo, will continue Monitor cultures and CBC (2) Cellulitis of scalp: Status: Acute Assessment and plan: Per exam and imaging, any abscess was likely already expressed and now open to air Wound care (3) Hypokalemia: Status: Acute Assessment and plan: replete and follow (4) Normocytic anemia: Status: Acute Assessment and plan: History of PABLO, recommend outpatient followup discussed with DR Bergeron Subjective Subjective Patient reports: no new complaints, tolerating liquids well, tolerating a regular diet and afebrile; denies shortness of breath Exam Narrative Exam Narrative: Well-appearing male stated age no acute distress head is atraumatic eyes nonicteric noninjected oral mucosas moist neck is supple full range of motion cardiovascular regular rate and rhythm respirations even and unlabored abdomen benign moves all extremities neurologic he is awake alert oriented no focal deficits psychiatric appropriate mood and affect Objective Last Vital Signs Temp 36.5 C 12/16/24 07:23 Pulse 78 12/16/24 07:23 Resp 16 12/16/24 07:23 BP 111/75 12/16/24 07:23 Pulse Ox 99 12/16/24 07:23 Laboratory Results - last 24 hr 12/16/24 12/16/24 05:45 11:10 WBC 17.77 H RBC 4.23 L Hgb 10.9 L Hct 35.0 L MCV 83 MCH 25.8 L MCHC 31.1 L RDW 17.4 H Plt Count 345 MPV 9.7 Immature Gran % 1.1 Neutrophils % 77.8 Lymphocytes % 12.4 Monocytes % 6.1 Eosinophils % 2.1 Basophils % 0.5 Nucleated RBC % 0.0 Absolute Neutrophils 13.83 H Absolute Lymphocytes 2.20 Absolute Monocytes 1.08 H Absolute Eosinophils 0.37 Absolute Basophils 0.09 Sodium 135 L Potassium 3.4 L Chloride 100 Carbon Dioxide 24.9 Anion Gap 10.1 BUN 10 Creatinine 0.9 Est GFR (CKD-EPI 2020) 106.01 Glucose 89 Calcium 9.3 Total Bilirubin 0.3 AST 20 ALT 18 Alkaline Phosphatase 132 H Total Protein 8.1 Albumin 2.6 L Vancomycin Trough 14.1 PAWSS Have you Been Recently Intoxicated or Drunk Within the Last 30 days?: No Have you Ever Experienced Previous Episodes of Alcohol Withdrawal?: No Have you ever Experienced Withdrawal Seizures?: No Have you ever Experienced Delirium Tremens(DT)s?: No Have you ever undergone Alcohol Rehabilitation Treatment (i.e, inpt ot outpatient treatment programs)?: No Have you ever Experienced Blackouts?: No Have you ever Combined Alcohol with other Downers within the last 90 days?: No Have you ever Combined Alcohol with any other Substance of Abuse during the last 90 days?: No Positive Blood Alcohol level on Presentation? [PCS.BAL]: No Evidence of Increased Autonomic Activity (i.e. HR>120, tremor, sweating, agitation, nausea)?: No Result: 0 Time Spent with Patient Time Spent with Patient: 35-49 minutes Time was spent: preparing to see the patient(eg.review tests), obtaining and/or reviewing separately [facility] hiistory, ordering medications,tests, procedures, indepentently interpreting results and counseling the patient
[2024-12-16 14:43] VITALS: BP 123/79; PULSE 86; RESP 18; TEMP 36.2; O2SAT 98
[2024-12-16 23:11] VITALS: BP 116/76; PULSE 96; RESP 14; TEMP 36.6; O2SAT 99
[2024-12-17] MEDS: Normal Saline Flush 10 ML SYR IVP ×3 (00:01→20:22)
[2024-12-17] MEDS: Cyclobenzaprine 10 MG TAB PO (05:28)
[2024-12-17 06:42] LABS: Abs Immature Grans 0.33 10^3/uL (0.0-0.06); HCT 43.6 % (40.0-50.0); HGB 13.4 g/dL (13.5-17.5); Immature Grans % 2.3 %; MCH 26.0 pg (27.0-33.0); MCHC 30.7 % (32.0-36.0); MCV 85 fL (80-95); MPV 10.4 fL (8.0-11.0); Platelet Count 387 10^3/uL (130-400); RBC 5.16 10^6/uL (4.36-5.78); RDW 17.3 % (11.8-14.1); RDW-SD 53.8 fL; WBC 14.08 10^3/uL (4.4-10.8)
[2024-12-17 07:31] LABS: ALT 55 U/L (16-63); AST 64 U/L (15-37); Albumin 2.9 g/dL (3.4-5.0); Alkaline Phosphatase 231 U/L (46-116); Anion Gap 12.2 mmol/L (3-11); BUN 20 mg/dL (7-18); Bilirubin, Total 0.2 mg/dL (0.2-1.0); CO2 25.8 mmol/L (21.0-32.0); Calcium 9.9 mg/dL (8.5-10.1); Chloride 98 mmol/L (98-107); Estimated GFR 83.32 (mL/min/1.73m2); Glucose 104 mg/dL (74-106); Potassium 3.8 mmol/L (3.5-5.1); Sodium 136 mmol/L (136-145); Total Protein 9.1 g/dL (6.4-8.2)
[2024-12-17 07:42] VITALS: BP 114/76; PULSE 102; RESP 16; TEMP 35.9; O2SAT 98
[2024-12-17] MEDS: Omeprazole 20 MG CAPCR 40 MG PO (07:54)
[2024-12-17] MEDS: FLUoxetine 20 MG CAP 40 MG PO (07:54)
[2024-12-17 10:52] VITALS: BP 112/87; PULSE 101; RESP 16; TEMP 35.5; O2SAT 98
[2024-12-17] MEDS: VANCOMYCIN/WATER (PEG) 1.25 GM/250 ML BAG IVPB ×2 (12:23)
--- NOTE | 2024-12-17 12:50 | W.PM.PROGNOT ---
Date of Service Date of service: 12/17/24 Time of Service: 12:58 Assessment and Plan Assessment and plan (1) Gram-positive cocci bacteremia: Status: Acute Assessment and plan: wound and blood cultures growing MSSA from 12/12 repeat blood cultures negative as of 12/14 negative initially on vancomycin and pip-tazo, will downstep to cefazolin based on cultures. Monitor cultures and CBC (2) Cellulitis of scalp: Status: Acute Assessment and plan: any abscess likely already expressed and now open to air Wound care (3) Hypokalemia: Status: Acute Assessment and plan: replete and follow (4) Normocytic anemia: Status: Acute Assessment and plan: History of PABLO, recommend outpatient followup discussed with DR Bergeron Exam Narrative Exam Narrative: Well-appearing male stated age no acute distress head is atraumatic eyes nonicteric noninjected oral mucosas moist neck is supple full range of motion cardiovascular regular rate and rhythm respirations even and unlabored abdomen benign moves all extremities neurologic he is awake alert oriented no focal deficits psychiatric appropriate mood and affect Objective Last Vital Signs Temp 35.5 C L 12/17/24 10:52 Pulse 101 H 12/17/24 10:52 Resp 16 12/17/24 10:52 BP 112/87 12/17/24 10:52 Pulse Ox 98 12/17/24 10:52 Laboratory Results - last 24 hr 12/17/24 12/17/24 05:50 06:52 WBC 14.08 H RBC 5.16 Hgb 13.4 L D Hct 43.6 MCV 85 MCH 26.0 L MCHC 30.7 L RDW 17.3 H Plt Count 387 MPV 10.4 Immature Gran % 2.3 Neutrophils % 67.8 Lymphocytes % 21.0 Monocytes % 5.5 Eosinophils % 2.4 Basophils % 1.0 Nucleated RBC % 0.0 Absolute Neutrophils 9.55 H Absolute Lymphocytes 2.96 Absolute Monocytes 0.77 Absolute Eosinophils 0.34 Absolute Basophils 0.14 Sodium 136 Potassium 3.8 Chloride 98 Carbon Dioxide 25.8 Anion Gap 12.2 H BUN 20 H Creatinine 1.1 Est GFR (CKD-EPI 2020) 83.32 Glucose 104 Calcium 9.9 Total Bilirubin 0.2 AST 64 H ALT 55 Alkaline Phosphatase 231 H Total Protein 9.1 H Albumin 2.9 L PAWSS Have you Been Recently Intoxicated or Drunk Within the Last 30 days?: No Have you Ever Experienced Previous Episodes of Alcohol Withdrawal?: No Have you ever Experienced Withdrawal Seizures?: No Have you ever Experienced Delirium Tremens(DT)s?: No Have you ever undergone Alcohol Rehabilitation Treatment (i.e, inpt ot outpatient treatment programs)?: No Have you ever Experienced Blackouts?: No Have you ever Combined Alcohol with other Downers within the last 90 days?: No Have you ever Combined Alcohol with any other Substance of Abuse during the last 90 days?: No Positive Blood Alcohol level on Presentation? [PCS.BAL]: No Evidence of Increased Autonomic Activity (i.e. HR>120, tremor, sweating, agitation, nausea)?: No Result: 0 Time Spent with Patient Time Spent with Patient: 35-49 minutes Time was spent: preparing to see the patient(eg.review tests), obtaining and/or reviewing separately otained hiistory, ordering medications,tests, procedures, indepentently interpreting results and counseling the patient
--- NOTE | 2024-12-17 13:59 | CMPROGNOTE_ITS ---
Date of service: 12/17/24 Time of Service: 14:00 Care Management Progress Note Progress Note Text Progress Note Text: Kvng was sitting up in the bed, having lunch, when CM met with him today. He was very pleasant. He stated that his head no longer hurts now that it has been draining. Discharge Potential Discharge Needs: PCP F/U Appt Anticipated Barriers to Discharge: None Identified Patient/Family Education Needs: Review discharge instructions, discuss Ask Me Three [facility] Plan: Anticipate that Kvng will discharge home with no new services. He will f/u with his PCP at a previously scheduled appointment on 12/21 and continue per his plan of care. Kvng will require an RCT ride home. CM will continue to follow. Social Determinants of Health Screening Social Determinants of health last assessed in clinic: 12/17/24 Will the Patient Participate in the Screening?: Yes Do you worry about having a steady place to live?: no Problems where you live: no known problems In the past 12 months, have you had to go without electric, gas, oil or water in your home?: no 1. Within the past 12 months, we worried whether our food would run out before we got money to buy more.: Don't know/refused 2. Within the past 12 months, the food we bought just didn't last and we didn't have money to get more.: Don't know/refused Has lack of transportation kept you from medical appointments or from doing things needed for daily living?: no Has anyone in your life made you feel unsafe or unsupported?: no How hard is it for you to pay for the very basics like food, housing, medical care, and heating? Would you say it is:: Not hard at all Do you want help finding or keeping work or a job?: I do not need or want help If for any reason you need help with day-to-day activities such as bathing, preparing meals, shopping, managing finances, etc., do you get the help you need?: I don?t need any help How often do you feel lonely or isolated from those around you?: Never Do you speak a language other than Palauan at home?: No Does the patient want assistance with any of the above?: No
[2024-12-17 20:00] VITALS: BP 133/85; PULSE 102; RESP 18; TEMP 36.8; O2SAT 99
[2024-12-17] MEDS: ceFAZolin 2 GM/50 ML BAG IVPB (23:02)
[2024-12-17 23:12] VITALS: BP 130/83; PULSE 90; RESP 22; TEMP 36.8; O2SAT 98
[2024-12-18] MEDS: Acetaminophen 325 MG TAB 650 MG PO (01:43)
[2024-12-18] MEDS: Cyclobenzaprine 10 MG TAB PO (01:44)
[2024-12-18 03:45] VITALS: BP 125/93; PULSE 93; RESP 22; TEMP 36.1; O2SAT 99
[2024-12-18] MEDS: ceFAZolin 2 GM/50 ML BAG IVPB ×3 (05:47→21:26)
[2024-12-18 06:53] VITALS: BP 105/56; PULSE 93; RESP 22; TEMP 36.5; O2SAT 100
--- NOTE | 2024-12-18 09:02 | NUR.NOTE ---
Accessed Pt chart to document the antibiotics given on the Specimen report. Report was then given to the Providers.
--- NOTE | 2024-12-18 09:21 | W.PM.PROGNOT ---
Date of Service Date of service: 12/18/24 Time of Service: 15:26 Assessment and Plan Assessment and plan (1) Gram-positive cocci bacteremia: Status: Acute Assessment and plan: wound and blood cultures growing MSSA from 12/12 repeat blood cultures negative as of 12/14 negative at 72 hours Leukocytosis at 11.94 from 19-20 from admission time initially on vancomycin and pip-tazo, will downstep to cefazolin based on cultures. As per ID at [facility] [place] Salmeron - outpatient ceftriaxone 2gm Q 24 hours IV X 4 weeks from negative blood culture - Midline ordered - Outpatient set-up discussed with CM -- RN VS outpatient infusion which is not the favorite option asper discussion with patient Continue to monitor cultures, inflammatory markers and CBC Echocardiogram LVEF 55%; failed ruling in endocarditis?no valvular findings (2) Cellulitis of scalp: Status: Acute Assessment and plan: any abscess likely already expressed and now open to air 12/14/[address] showed no drainable abscess Wound care (3) Hypokalemia: Status: Acute Assessment and plan: replete and remained stable (4) Normocytic anemia: Status: Acute Assessment and plan: History of PABLO, recommend ongoing outpatient follow-up discussed with DR Denny Subjective Subjective Patient reports: no new complaints, pain is less, tolerating liquids well, tolerating a regular diet, voiding w/o difficulty, flatus, bowel movement (Colostomy) and other (Reporting chills and night sweats); denies diarrhea, blood in stool, vomiting, shortness of breath or fever Exam Narrative Exam Narrative: Well-appearing male stated age no acute distress head is atraumatic eyes nonicteric noninjected oral mucosas moist neck is supple full range of motion cardiovascular regular rate and rhythm respirations even and unlabored abdomen benign moves all extremities neurologic he is awake alert oriented no focal deficits psychiatric appropriate mood and affect Objective Last Vital Signs Temp 36.5 C 12/18/24 06:53 Pulse 93 H 12/18/24 06:53 Resp 22 12/18/24 06:53 BP 105/56 L 12/18/24 06:53 Pulse Ox 100 12/18/24 06:53 PAWSS Have you Been Recently Intoxicated or Drunk Within the Last 30 days?: No Have you Ever Experienced Previous Episodes of Alcohol Withdrawal?: No Have you ever Experienced Withdrawal Seizures?: No Have you ever Experienced Delirium Tremens(DT)s?: No Have you ever undergone Alcohol Rehabilitation Treatment (i.e, inpt ot outpatient treatment programs)?: No Have you ever Experienced Blackouts?: No Have you ever Combined Alcohol with other Downers within the last 90 days?: No Have you ever Combined Alcohol with any other Substance of Abuse during the last 90 days?: No Positive Blood Alcohol level on Presentation? [PCS.BAL]: No Evidence of Increased Autonomic Activity (i.e. HR>120, tremor, sweating, agitation, nausea)?: No Result: 0 Time Spent with Patient Time Spent with Patient: >50 minutes Time was spent: preparing to see the patient(eg.review tests), obtaining and/or reviewing separately otained hiistory, ordering medications,tests, procedures, referring, communicating with other health special needs caregiver, indepentently interpreting results, counseling the patient, care coordination and other
[2024-12-18] MEDS: FLUoxetine 20 MG CAP 40 MG PO (09:22)
[2024-12-18] MEDS: Omeprazole 20 MG CAPCR 40 MG PO (09:22)
[2024-12-18] MEDS: Normal Saline Flush 10 ML SYR IVP ×2 (09:23→21:27)
--- NOTE | 2024-12-18 10:30 | DI.US_ITS ---
APPROVED REPORT EXAM: Comprehensive 2D, Doppler, and color-flow Echocardiogram Patient Location: In-Patient Room/Bed: 226 Adjunct Faculty For Medical Terminology: Frederick Patel RDCS (AE) Indications: Staph Bacteremia Other Information Study Quality: Technically Limited. Technically limited study due to body habitus, smoker. Conclusion Technically limited and suboptimal study Normal left ventricular wall thickness and chamber size. Ejection fraction is 55%. Wall motion is normal Normal right ventricular size and function Both atria are normal in size Within the limits of the study, no significant valvular disease or vegetations are identified Wall motion Left Ventricle The left ventricle is normal size. The left ventricular systolic function is normal. The left ventricular ejection fraction is within the normal range. There is normal left ventricular wall thickness. There is normal LV segmental wall motion. There is no ventricular septal defect visualized. LVEF is 55%. Right Ventricle The right ventricle is normal size. The right ventricular systolic function is normal. Atria The left atrium size is normal. The right atrium size is normal. The interatrial septum is intact with no evidence for an atrial septal defect. Aortic Valve The aortic valve is normal in structure. Aortic valve is trileaflet. There is no aortic valvular stenosis. No aortic regurgitation is present. Mitral Valve The mitral valve is normal in structure. No evidence of mitral valve stenosis. Trace mitral regurgitation. Tricuspid Valve The tricuspid valve is normal in structure. There is no tricuspid valve stenosis. Trace tricuspid regurgitation. Unable to assess PA pressure. Pulmonic Valve Pulmonic valve is not well visualized. There is no pulmonic valvular stenosis. There is no pulmonic valvular regurgitation. Great Vessels The aortic root is normal in size. The ascending aorta is normal in size. Aortic arch is not well visualized. IVC is normal in size and collapses >50% with inspiration. Pericardium There is no pericardial effusion. 2D Dimensions IVSD d PLAX 1.00 cm M: 0.6-1.2 Ao Root d 3.41 cm M: 3.1 - 3.7 LVPW d PLAX 1.01 cm M: 0.6 - 1.2 Ao Asc Diam d 3.10 cm M: 2.6 - 3.4 LVID d PLAX 4.20 cm M: 4.2 - 5.8 LVDs 3.02 cm M: 2.5 - 4.0 LV EF Teichholz 54.3 % FS 27.78 % LV EDV (Teich) 78.1 mL LV ESV (Teich) 35.7 mL M-Mode TAPSE 1.56 cm (M/F) >1.7 Auto EF LV EDV A4C 103.8 mL LV EDV A2C 109.2 mL LV EDV BP 106.3 mL LV ESV A4C 50.8 mL LV ESV A2C 53.1 mL LV ESV BP 52.1 mL LVEF(%) A4C 51.0 % LVEF(%) A2C 51.3 % LVEF(%) BP 51.0 % LV SV A4C 52.9 ml LV SV A2C 56.1 ml LV SV BP 54.2 ml LV CO A4C 5.3 L/min LV CO A2C 5.4 L/min LV CO BP 5.3 L/min HR A4C 100.56 BPM HR A2C 95.75 BPM LV EDV Index (BP) LA Volume LA Length A4C 3.8 cm LA Length A2C 4.9 cm LA Area A4C s 9.21 cm2 LA Area A2C s 16.58 cm2 LA Vol A4C A-L 18.74 mL LA Vol A2C A-L 47.80 mL LA Vol Biplane A-L 33.7 mL LA Vol/BSA A4C A-L LA Vol/BSA A2C A-L LA Vol/BSA BP A-L 17.4 mL/m2 LA Vol A4C MOD 17.3 mL LA Vol A2C MOD 44.2 mL LA Vol BP MOD 30.8 mL RA Volume RA Area A4C 11.3 cm2 RA ESV A4C (A-L) 27.1mL RA Vol/BSA A4C A-L RA Length A4C 4.0 cm RA ESV A4C (MOD) 23.8mL LV Diastology MV E' medial 0.082 (>0.07 m/s) MV E Vmax 0.56 (0.4-1.3 m/s) MV E/E' MED 6.83 (<14) MV A Vmax 0.60 (0.4-1.3 m/s) MV E' lateral 0.154 (>0.1 m/s) E/A Ratio 0.9 MV E/E' LAT 3.65 (<14) MV E' Average 0.118 m/s MV E/E'(average) 4.76 Aortic Valve AoV Vmax 1.09 m/s LVOT Vmax 0.90 m/s AoV Peak Grad 4.8 mmHg LVOT Peak Grad 3.2 mmHg AoV Area (Vmax) 2.27 cm2 LVOT VTI 0.134 m AoV VTI 0.163 m LVOT Mean Grad 2.0 mmHg AoV Mean Valdez. 0.78 m/s LVOT SV 37.18 mL AoV Mean Grad 2.7 mmHg LVOT Diam s 1.85 cm AoV Area (VTI) 2.29 cm2 AV Regurg Peak Gr. 4.76 mmHg Velocity Ratio 0.83 Mitral Valve MV DT 210 (160-240 msec) MV Vmax TIPS 0.63 m/s MV Mean Grad 0.9 (<2mmHg) MV VTI 0.143 m Pulmonary Valve PV Vmax 0.84 (0.5-1.5 m/s) RVOT Vmax 0.77 m/s PV Peak Grad 2.8 mmHg RVOT Peak Gr. 2.4 mmHg PV Mean Valdez 0.60 m/s RVOT VTI 0.145 m PV Mean Grad 1.6 mmHg RVOT Mean Gr. 1.3 mmHg Tricuspid Valve RA Pressure 3.00 mmHg TV S' 0.12 m/s
[2024-12-18 10:33] LABS: Abs Immature Grans 0.22 10^3/uL (0.0-0.06); Anion Gap 12.5 mmol/L (3-11); BUN 19 mg/dL (7-18); CO2 24.5 mmol/L (21.0-32.0); Calcium 9.8 mg/dL (8.5-10.1); Chloride 97 mmol/L (98-107); Estimated GFR 93.42 (mL/min/1.73m2); Glucose 211 mg/dL (74-106); HCT 39.1 % (40.0-50.0); HGB 11.9 g/dL (13.5-17.5); Immature Grans % 1.8 %; MCH 25.5 pg (27.0-33.0); MCHC 30.4 % (32.0-36.0); MCV 84 fL (80-95); MPV 10.0 fL (8.0-11.0); Potassium 4.0 mmol/L (3.5-5.1); RBC 4.67 10^6/uL (4.36-5.78); RDW 17.4 % (11.8-14.1); RDW-SD 52.9 fL; Sodium 134 mmol/L (136-145); WBC 11.94 10^3/uL (4.4-10.8)
[2024-12-18 11:07] LABS: Platelet Count 428 10^3/uL (130-400)
[2024-12-18 11:38] VITALS: BP 138/82; PULSE 98; RESP 16; TEMP 37.3; O2SAT 98
[2024-12-18 16:37] VITALS: BP 133/92; PULSE 91; RESP 16; TEMP 36.9; O2SAT 97
--- NOTE | 2024-12-18 17:12 | PDOC.CMPRO ---
Date of service: 12/18/24 Time of Service: 17:12 Care Management Progress Note Progress Note Text Progress Note Text: Kvng was sitting up in the bed when CM met with him today. He was very pleasant with CM. He stated that he is still having trouble with his temperature, he fluctuates between hot and cold. Kvng' provider had a consult with infectious disease today, and he will need 4 weeks of IV antibiotics. After a discussion with Kvng, it was decided that the best course of treatment will be home infusion. He is very willing to learn to administer the med, and he has no vehicle, so securing a daily ride for 4 weeks would be challenging. Med orders and supporting documents were faxed to [facility] and [place] by CM. It was late in the day when orders were faxed, so no call back yet. CM will f/u in the morning. A mid-line is scheduled to be placed tomorrow. Discharge Potential Discharge Needs: PCP F/U Appt and Other (Home infusion) Anticipated Barriers to Discharge: None Identified Patient/Family Education Needs: Review discharge instructions, discuss Ask Me Three and Other (CM has asked nursing to do some basic teaching with Kvng surrounding his IV administration) [facility] Plan: [facility]vng will likely be discharged in the next day or [address] [facility] services of for IV abx. He will f/u with his PCP at a regularly scheduled appointment on 12/21, and continue per his plan of care. CM will continue to follow and coordinate his outpatient services. Social Determinants of Health Screening Social Determinants of health last assessed in clinic: 12/18/24 Will the Patient Participate in the Screening?: Yes Do you worry about having a steady place to live?: no Problems where you live: no known problems In the past 12 months, have you had to go without electric, gas, oil or water in your home?: no 1. Within the past 12 months, we worried whether our food would run out before we got money to buy more.: Don't know/refused 2. Within the past 12 months, the food we bought just didn't last and we didn't have money to get more.: Don't know/refused Has lack of transportation kept you from medical appointments or from doing things needed for daily living?: no Has anyone in your life made you feel unsafe or unsupported?: no How hard is it for you to pay for the very basics like food, housing, medical care, and heating? Would you say it is:: Not hard at all Do you want help finding or keeping work or a job?: I do not need or want help If for any reason you need help with day-to-day activities such as bathing, preparing meals, shopping, managing finances, etc., do you get the help you need?: I don?t need any help How often do you feel lonely or isolated from those around you?: Never Do you speak a language other than Amharic at home?: No Does the patient want assistance with any of the above?: No
[2024-12-18 18:54] LABS: Lab Add On Test DONE
[2024-12-18 19:04] LABS: Magnesium 1.7 mg/dL (1.8-2.4)
[2024-12-18 19:49] VITALS: BP 154/97; PULSE 100; RESP 18; TEMP 35.8; O2SAT 97
[2024-12-18 23:32] VITALS: BP 134/91; PULSE 101; RESP 19; TEMP 35.9; O2SAT 98
[2024-12-19] VITALS (7 sets, daily range): BP systolic 114–157; BP diastolic 76–99; PULSE 16–104; RESP 16–22; TEMP 35.8–36.7; O2SAT 94–99
[2024-12-19] MEDS: Acetaminophen 325 MG TAB 650 MG PO (03:52)
[2024-12-19] MEDS: ceFAZolin 2 GM/50 ML BAG IVPB (05:46)
[2024-12-19 06:57] LABS: Abs Immature Grans 0.30 10^3/uL (0.0-0.06); HCT 39.7 % (40.0-50.0); HGB 11.9 g/dL (13.5-17.5); Immature Grans % 2.4 %; MCH 25.3 pg (27.0-33.0); MCHC 30.0 % (32.0-36.0); MCV 84 fL (80-95); MPV 9.7 fL (8.0-11.0); Platelet Count 394 10^3/uL (130-400); RBC 4.71 10^6/uL (4.36-5.78); RDW 17.2 % (11.8-14.1); RDW-SD 52.7 fL; WBC 12.74 10^3/uL (4.4-10.8)
[2024-12-19 07:19] LABS: Anion Gap 10.3 mmol/L (3-11); BUN 16 mg/dL (7-18); CO2 25.7 mmol/L (21.0-32.0); Calcium 10.0 mg/dL (8.5-10.1); Chloride 98 mmol/L (98-107); Estimated GFR 93.42 (mL/min/1.73m2); Glucose 108 mg/dL (74-106); Magnesium 1.9 mg/dL (1.8-2.4); Potassium 4.7 mmol/L (3.5-5.1); Sodium 134 mmol/L (136-145)
[2024-12-19] MEDS: FLUoxetine 20 MG CAP 40 MG PO (08:21)
[2024-12-19] MEDS: Normal Saline Flush 10 ML SYR IVP ×2 (08:21→19:42)
[2024-12-19] MEDS: Omeprazole 20 MG CAPCR 40 MG PO (08:21)
[2024-12-19] MEDS: cefTRIAXone 2 GM/50 ML BAG IVPB (13:06)
--- NOTE | 2024-12-19 13:54 | W.PM.PROGNOT ---
Date of Service Date of service: 12/19/24 Time of Service: 13:54 Assessment and Plan Assessment and plan (1) Gram-positive cocci bacteremia: Status: Acute Assessment and plan: wound and blood cultures growing MSSA from 12/12 repeat blood cultures negative as of 12/14 negative at 72 hours Leukocytosis at 11.94 from 19-20 from admission time initially on vancomycin and pip-tazo, will downstep to cefazolin based on cultures. As per ID at [facility] [place] Dr Salmeron - outpatient ceftriaxone 2gm Q 24 hours IV X 4 weeks from negative blood culture - Midline ordered - Outpatient set-up discussed with CM -- RN VS outpatient infusion which is not the favorite option asper discussion with patient Continue to monitor cultures, inflammatory markers and CBC Echocardiogram LVEF 55%; failed ruling in endocarditis?no valvular findings (2) Cellulitis of scalp: Status: Acute Assessment and plan: any abscess likely already expressed and now open to air 12/14/[address] showed no drainable abscess Wound care (3) Hypokalemia: Status: Acute Assessment and plan: replete and remained stable (4) Normocytic anemia: Status: Acute Assessment and plan: History of PABLO, recommend ongoing outpatient follow-up discussed with DR Denny Subjective Subjective Patient reports: no new complaints, tolerating liquids well, tolerating a regular diet, voiding w/o difficulty, bowel movement and other (reports no insect, spider bites, boils, skin lesions, but reporting teeth problems with dental appointment to pull 4-5 left on 01/02); denies diarrhea, blood in stool, vomiting, shortness of breath or fever Exam Narrative Exam Narrative: Well-appearing male stated age no acute distress head is atraumatic eyes nonicteric noninjected oral mucosas moist neck is supple full range of motion cardiovascular regular rate and rhythm respirations even and unlabored abdomen benign moves all extremities neurologic he is awake alert oriented no focal deficits psychiatric appropriate mood and affect Objective Last Vital Signs Temp 36.3 C L 12/19/24 13:51 Pulse 104 H 12/19/24 13:51 Resp 18 12/19/24 13:51 BP 147/91 H 12/19/24 13:51 Pulse Ox 98 12/19/24 13:51 Laboratory Results - last 24 hr 12/18/24 12/18/24 12/19/24 09:40 18:54 06:30 WBC 12.74 H RBC 4.71 Hgb 11.9 L Hct 39.7 L MCV 84 MCH 25.3 L MCHC 30.0 L RDW 17.2 H Plt Count 394 MPV 9.7 Immature Gran % 2.4 Neutrophils % 62.6 Lymphocytes % 25.0 Monocytes % 6.8 Eosinophils % 2.0 Basophils % 1.2 Nucleated RBC % 0.0 Absolute Neutrophils 7.98 H Absolute Lymphocytes 3.19 Absolute Monocytes 0.87 H Absolute Eosinophils 0.25 Absolute Basophils 0.15 Sodium 134 L Potassium 4.7 Chloride 98 Carbon Dioxide 25.7 Anion Gap 10.3 BUN 16 Creatinine 1.0 Est GFR (CKD-EPI 2020) 93.42 Glucose 108 H Calcium 10.0 Magnesium 1.7 L 1.9 Add-On Test Request DONE PAWSS Have you Been Recently Intoxicated or Drunk Within the Last 30 days?: No Have you Ever Experienced Previous Episodes of Alcohol Withdrawal?: No Have you ever Experienced Withdrawal Seizures?: No Have you ever Experienced Delirium Tremens(DT)s?: No Have you ever undergone Alcohol Rehabilitation Treatment (i.e, inpt ot outpatient treatment programs)?: No Have you ever Experienced Blackouts?: No Have you ever Combined Alcohol with other Downers within the last 90 days?: No Have you ever Combined Alcohol with any other Substance of Abuse during the last 90 days?: No Positive Blood Alcohol level on Presentation? [PCS.BAL]: No Evidence of Increased Autonomic Activity (i.e. HR>120, tremor, sweating, agitation, nausea)?: No Result: 0 Time Spent with Patient Time Spent with Patient: >50 minutes Time was spent: preparing to see the patient(eg.review tests), obtaining and/or reviewing separately otained hiistory, ordering medications,tests, procedures, referring, communicating with other health outdoor emergency care technician, indepentently interpreting results, counseling the patient, care coordination and other
--- NOTE | 2024-12-19 16:05 | PHA.REVIEW2 ---
Pharmacy Admission Review Admission Clinical Review Admission Pharmacy Review: Hypokalemia (Acute) Normocytic anemia (Acute) Gram-positive cocci bacteremia (Acute) Cellulitis of scalp (Acute) No Known Allergies Allergy (Verified 12/14/24 22:28) Resuscitation Status Full Code Height 5 ft 9 in Weight 78.018 kg Pharmacy Admission Review Renal Dosing Renal Dosing: BUN 16 mg/dL (7-18) 12/19/24 06:30 Creatinine 1.0 mg/dL (0.70-1.30) 12/19/24 06:30 Medications needing adjustments: Reviewed (CrCl 100.77 mL/min) List of meds needing interventions: Current medications are okay Anticoagulation Anticoagulation: Hgb 11.9 g/dL (13.5-17.5) L 12/19/24 06:30 Hct 39.7 % (40.0-50.0) L 12/19/24 06:30 Plt Count 394 10^3/uL (130-400) 12/19/24 06:30 Creatinine 1.0 mg/dL (0.70-1.30) 12/19/24 06:30 DVT Prophylaxis: Reviewed (none at this time, plan is for discharge tomorrow. If patient not discharged will reach out to provider) Relevant Labs Relevant Labs: Sodium 134 mmol/L (136-145) L 12/19/24 06:30 Potassium 4.7 mmol/L (3.5-5.1) 12/19/24 06:30 Chloride 98 mmol/L (98-107) 12/19/24 06:30 Magnesium 1.9 mg/dL (1.8-2.4) 12/19/24 06:30 Electrolytes, C-Reactive P, ESR: Reviewed Cardiac Review Cardiac Review: Blood Pressure 135/96 1530 Blood Pressure 147/91 1351 Blood Pressure 129/99 1113 Blood Pressure 142/86 0736 BP, HR, EF%: Reviewed (HR 102) QTc Review QTc: Reviewed (448 from 12/14/24) IV to PO Switch IV Medications: Reviewed (ceftriaxone and ketorolac) Home Meds Home Med List reviewed: Reviewed Relevent Home Meds Not ordered & why?: Cyltezo (weekly), albuterol (PRN), vitamin D3, vitamin B12, ondansetron (PRN) and potassium Current Meds Current Medication Order Review: Intervened Comments: Added IV access order Pharmacy Antibiotic Review Relevant Labs: WBC 12.74 10^3/uL (4.4-10.8) H 12/19/24 06:30 Temperature 36.2 C Temperature 36.3 C Temperature 36.1 C Temperature 36.4 C Microbiology 12/14/24 23:27 Blood Culture - Preliminary Blood NO GROWTH 96 HOURS 12/14/24 22:45 Blood Culture - Preliminary Blood NO GROWTH 96 HOURS Wound Culture Final 12/18/24-957 Organism 1 Staphylococcus aureus GROWTH HEAVY GROWTH Stap christ Result Gentamicin S Trimethoprim/Sulfamethoxazole S Daptomycin S Erythromycin S Oxacillin S Vancomycin S Pharmacy Antibiotic Activity: C/S review and Reviewed, no change Comments: Patient is on ceftriaxone, day 1, for bacteremia. Received vancomycin for 2 days, then changed to cefazolin for 2 days and then changed again today to ceftriaxone so patient could go home one once daily IV antibiotics for 4 weeks. Plan is for discharge tomorrow.
--- NOTE | 2024-12-19 18:01 | CMPROGNOTE_ITS ---
Date of service: 12/19/24 Time of Service: 18:01 Care Management Progress Note Progress Note Text Progress Note Text: EKTA has met with Kvng several times today. At each visit, Kvng has been very pleasant. CM has been trying to work on setting up home infusions for him today. All of the required clinicals have been sent to [facility], the company Kvng has decided to go with. Kvng has been kept updated on the progress of this referral throughout the day. He may need to come to the infusion center daily as opposed to having home health. This is very actively being worked on by and community partners. Discharge Potential Discharge Needs: PCP F/U Appt and Other (daily antibiotic therapy x 4 weeks) Anticipated Barriers to Discharge: None Identified Patient/Family Education Needs: Review discharge instructions, discuss Ask Me Three [facility] Plan: Kvng will likely be discharged tomorrow with new RN services for home infusion therapy vs.daily infusions at the infusion center here at [facility]. He will need daily rides if he comes to the infusion center from [facility]. He will f/u with his PCP and continue per his plan of care. CM will continue to follow and coordinate his outpatient services. Social Determinants of Health Screening Social Determinants of health last assessed in clinic: 12/19/24 Will the Patient Participate in the Screening?: Yes Do you worry about having a steady place to live?: no Problems where you live: no known problems In the past 12 months, have you had to go without electric, gas, oil or water in your home?: no 1. Within the past 12 months, we worried whether our food would run out before we got money to buy more.: Sometimes true 2. Within the past 12 months, the food we bought just didn't last and we didn't have money to get more.: Sometimes true Has lack of transportation kept you from medical appointments or from doing things needed for daily living?: no Has anyone in your life made you feel unsafe or unsupported?: no How hard is it for you to pay for the very basics like food, housing, medical care, and heating? Would you say it is:: Not hard at all Do you want help finding or keeping work or a job?: I do not need or want help If for any reason you need help with day-to-day activities such as bathing, preparing meals, shopping, managing finances, etc., do you get the help you need?: I don?t need any help How often do you feel lonely or isolated from those around you?: Never Do you speak a language other than [place] Irish at home?: No Does the patient want assistance with any of the above?: No Health Related Social Needs Health related social needs: food insecurity (Z59.41)
[2024-12-20 02:50] VITALS: BP 126/82; PULSE 81; RESP 16; TEMP 36.6; O2SAT 97
[2024-12-20 07:00] VITALS: BP 151/84; PULSE 86; RESP 18; TEMP 36.5; O2SAT 97
[2024-12-20 07:39] LABS: Abs Immature Grans 0.27 10^3/uL (0.0-0.06); HCT 41.8 % (40.0-50.0); HGB 12.6 g/dL (13.5-17.5); Immature Grans % 1.9 %; MCH 25.2 pg (27.0-33.0); MCHC 30.1 % (32.0-36.0); MCV 84 fL (80-95); MPV 9.1 fL (8.0-11.0); Platelet Count 454 10^3/uL (130-400); RBC 5.00 10^6/uL (4.36-5.78); RDW 17.1 % (11.8-14.1); RDW-SD 52.8 fL; WBC 14.09 10^3/uL (4.4-10.8)
[2024-12-20 08:07] LABS: Anion Gap 12.4 mmol/L (3-11); BUN 17 mg/dL (7-18); CO2 25.6 mmol/L (21.0-32.0); Calcium 10.0 mg/dL (8.5-10.1); Chloride 97 mmol/L (98-107); Estimated GFR 93.42 (mL/min/1.73m2); Glucose 100 mg/dL (74-106); Magnesium 1.9 mg/dL (1.8-2.4); Potassium 4.5 mmol/L (3.5-5.1); Sodium 135 mmol/L (136-145)
[2024-12-20] MEDS: Omeprazole 20 MG CAPCR 40 MG PO (08:14)
[2024-12-20] MEDS: FLUoxetine 20 MG CAP 40 MG PO (08:16)
[2024-12-20] MEDS: Normal Saline Flush 10 ML SYR IVP (08:17)
--- NOTE | 2024-12-20 09:34 | DSE_ITS ---
Date of service: 12/20/24 Time of Service: 09:34 DS: Diagnosis Discharge Diagnosis (1) Gram-positive cocci bacteremia: Status: Acute (2) Cellulitis of scalp: Status: Acute (3) Hypokalemia: Status: Acute (4) Normocytic anemia: Status: Acute Discharge Plan Disposition Patient Disposition: Home Condition: Improving Discharge Details Reason For Visit: Bacteremia Admit Date/Time: 12/15/24 00:14 Admit Provider: Chandler Weston Attending Provider: Chandler Weston Primary Care Provider: Pb Nielsen [facility] Course Hospital Course: Aditya Grossman is a 49 year old man with a PMHx of Crohn disease on immunosuppression, partial colectomy with ileostomy , depression on fluoxetine, GERD on PPI who presented to the ED on November 20 after being called back positive blood cultures and having being seen December 12 for an infection on the top of his head which started on the morning of December 07 with pain radiating into the right side of his neck. Bactrin was ordered s/p initial v isit. The patient met sepsis criteria with fever, tachycardia, tachypnea, and leukocytosis and treatment was started with IVF, IV vancomycin and zosyn; repeat blood cultures and purulent drainage from scalp lesion was also cultured. Heat CT showed no drainable abscess, no bony insolvent. The patient was admitted to the medical surgical floor with telemetry by the hospitalist service for sepsis, GPC bacteremia , electrolyte imbalance as per chemistry findings. Blood cultures grew staphylococcus Aureus sensitive to oxacillin with agreement with ID at [facility] Dr. Salmeron to treat with ceftriaxone 2gm Q 24 hours IV X 4 weeks from negative blood culture from 12/14/24. Midline placement completed on 12/18/24. The patient improved clinically and will be discharged home and will continue IV antibiotherapy with [facility] infusion center from 12/21/24 until 01/11/25 inclusively. Resumption of immunosupression therapy for Chron's disease to be discussed with PCP or gastroenterology specialist at [facility] ; on hold at this time. Echocardiogram completed on 12/18/2024 showed and LVEF of 55% and failed to rule in valvular disease or vegetation. Recommending outpatient [facility] to be arranged by PCP. Follow-up with PCP within 7 days of discharge please. Discussed with Dr. Denny Recommendations for Follow Up Recommended tests to be ordered by follow up provider: [facility] outpatient,CBC, IV ceftriaxone 2gm IV daily until 01/11/25- F/u Cyltezo(CF) resumption in the setting of bacteremia- seen at [facility] by GI for this drug regimen Home Meds and New Rx's Prescriptions: New ceftriaxone in dextrose,iso-os 2 gram/50 mL Piggyback 2 g IVPB NOW Qty: 24 0RF Rx Instructions: Until 01/11/25- in outpatient infusion center at [facility] Continued albuterol sulfate 90 mcg/actuation HFA aerosol inhaler 1 puff IH Q6H PRN (Reason: shortness of breath or wheezing) Qty: 18 6RF potassium chloride 20 mEq/15 mL liquid 20 meq PO DAILY 30 Days Qty: 750 6RF Rx Instructions: Please dispense enough for one month at a time fluoxetine 40 mg capsule 40 mg PO DAILY 90 Days Qty: 90 3RF Rx Instructions: 08/10/17 [facility] Colorectal ondansetron HCl [Zofran] 4 mg tablet 4 mg PO Q12H PRN Qty: 60 3RF Rx Instructions: 11/03/18 [facility] Gastro cholecalciferol (vitamin D3) [Vitamin D3] 25 mcg (1,000 unit) capsule 1,000 unit PO DAILY 90 Days Qty: 90 3RF Rx Instructions: 08/10/17 [facility] cyanocobalamin (vitamin B-12) [Vitamin B-12] 1,000 mcg tablet 1,000 mcg PO DAILY 90 Days Qty: 90 3RF Rx Instructions: 08/12/17 [facility] omeprazole 40 mg capsule,delayed release(DR/EC) 40 mg PO DAILY Qty: 90 3RF cyclobenzaprine 5 mg tablet 5 mg PO TID PRN (Reason: muscle spasm) Qty: 90 3RF acetaminophen [Tylenol] 325 MG tablet 650 mg PO Q6H PRN PRNQty: 30 0RF Patient Comments: Took at bedtime last night Held adalimumab-adbm [Cyltezo(CF) Pen] 40 mg/0.8 mL pen injector kit 40 mg SUBCUT .WEEKLY Hold Instructions: Resume on 01/03/25. Discussed with PCP in the setting of acute bacteremia and skin infection Patient Comments: INJECT 40MG UNDER THE SKIN ONCE WEEKLY Discontinued sulfamethoxazole-trimethoprim 800-160 mg tablet 1 tab PO BID 10 Days Qty: 20 0RF Discharge Instructions Stand Alone Forms: Nursing Discharge Form Referrals: Pb Nielsen DO [Primary Care Provider, Medicine] Referral Note: Follow-up within 7 days of discharged please. Please make a fallow up appointment with your PCP. Activity:: Activity as Tolerated Equipment/Supplies:: No Equipment Needed Diet:: As per prior to admission Discharge Orders Discharge Orders: Discharge Order (Routine); Ordered 12/20/24 Ordered By: Dana Patton DS: Summary Time Spent with Patient providing and/or coordinating discharge services: Greater than 30 minutes Status at Discharge Functional status at discharge: independent ambulation Overall status at discharge: patient is progressing back to baseline Mental Status: mental status grossly normal Speech and Movement: speech and movement normal Mood: congruent mood Affect: normal affect Quality:SDOH Health Related Social Needs: Health related social needs food insecurity Exam Narrative Exam Narrative: Well-appearing 49 yo male patient looking of stated age, A&O X4 , no acute distress, parietal scalp lesion, with minimal drainage and scab at the center, no erythema, eyes nonicteric noninjected oral mucosa moist, no meningeal sign , heart is regular with rate and rhythm, no murmur respirations even and unlabored, clear lungs, abdomen benign--colostomy in place and patent, intact stoma, moves all extremities neurologic he is awake alert oriented no focal deficits psychiatric appropriate mood and affect Psych Mental Status: mental status grossly normal Speech and Movement: speech and movement normal Mood: congruent mood Affect: normal affect DS: Data Vitals/I&O Vitals and I&O: Vital Signs Temperature 36.5 C 12/20/24 07:00 Temperature Source Temporal Artery Scan 12/20/24 07:00 Pulse 86 12/20/24 07:00 Pulse Rhythm Regular 12/15/24 14:40 Pulse 93 H 12/15/24 12:07 Respiratory Rate 18 12/20/24 07:00 Respiratory Effort Normal 12/15/24 14:40 Respiratory Depth Normal 12/15/24 14:40 Respiratory Pattern Normal 12/15/24 14:40 Blood Pressure 151/84 H 12/20/24 07:00 Blood Pressure Mean 106 12/20/24 07:00 Blood Pressure Position Right Lateral 12/15/24 07:12 Pulse Oximetry 97 12/20/24 07:00 Oxygen Delivery Method Room Air 12/20/24 07:00 Oxygen Flow Rate 0 12/20/24 07:00 Pain Level 0 12/19/24 11:13 Comment PT sleeping refused vitals. 12/17/24 03:46 Intake & Output 12/19/24 12/19/24 12/20/24 11:59 23:59 11:59 Intake Total 480 / 530 50 / 530 100 / 100 Balance 480 / 530 50 / 530 100 / 100 Intake: IV 50 / 50 100 / 100 Oral 480 / 480 Other: Urine Color Yellow Yellow Urine Appearance Clear Clear Urine Odor Normal Normal Comment pt. voids independent to the toilet. independent to toilet. Data Completed and Pending Labs on day of discharge: Labs from last 24 hours 12/20/24 07:10 WBC 14.09 H RBC 5.00 Hgb 12.6 L Hct 41.8 MCV 84 MCH 25.2 L MCHC 30.1 L RDW 17.1 H Plt Count 454 H MPV 9.1 Immature Gran % 1.9 Neutrophils % 65.4 Lymphocytes % 25.0 Monocytes % 5.4 Eosinophils % 1.3 Basophils % 1.0 Nucleated RBC % 0.0 Absolute Neutrophils 9.21 H Absolute Lymphocytes 3.52 H Absolute Monocytes 0.76 Absolute Eosinophils 0.18 Absolute Basophils 0.14 Sodium 135 L Potassium 4.5 Chloride 97 L Carbon Dioxide 25.6 Anion Gap 12.4 H BUN 17 Creatinine 1.0 Est GFR (CKD-EPI 2020) 93.42 Glucose 100 Calcium 10.0 Magnesium 1.9 PFSH All Active Problems (Updated 12/20/24 @ 10:10 by Dana Patton APRN) Hypokalemia (Acute) Normocytic anemia (Acute) Gram-positive cocci bacteremia (Acute) Cellulitis of scalp (Acute) Status post ileostomy (Acute) 05/16/2024 at [facility] by Emeli Shore MD Status post small bowel resection (Acute) 05/16/2024 at [facility] by Dr. mEeli Shore Status post colectomy (Acute) 05/16/24 at [facility] Emeli traore MD Unilateral inguinal hernia, without obstruction or gangrene, not specified as recurrent (Acute) Unilateral inguinal hernia, without obstruction or gangrene, recurrent (Acute) Parastomal hernia without obstruction or gangrene (Acute) Incisional hernia without obstruction or gangrene (Acute) Iron deficiency anemia, unspecified (Acute) Normal endoscopic ultrasound of upper gastrointestinal tract (Acute 02/18/23) [facility] Abnormal findings on diagnostic imaging of gall bladder (Acute) PSC (primary sclerosing cholangitis) (Acute) Vitamin D2 deficiency (Acute) Smoker (Acute) Crohn's disease with complication (Acute 07/21/17) remaining small bowel 180 cm, with fistula 05/01/19 F/u at [facility] GI 11/06/21 incomplete flex sig Gynecomastia (Acute) Muscle spasm (Acute) Transaminitis (Acute) Medical History (Updated 12/20/24 @ 10:10 by Dana Patton APRN) H/O magnetic resonance imaging 01/19/23- [facility] MRI CHOLANGIOPANCREATOGRAPHY WO CONTRAST. suggestive of PSC; will connect with liver specialist. abnormal appearance of gallbladder, f/u EUS. Emeli Moreno MD;[facility] Gastro Alcohol abuse Tobacco use disorder 03/22 ppd 11/[address] (07/13/17) managed by [facility] at [facility] holister 2-piece pouch Hyponatremia Surgical History (Updated 06/14/24 @ 17:12 by Arcelia Lezama CMA) History of incisional hernia repair 05/16/2024 at [facility] by Emeli Shore MD With MESH H/O colonoscopy (09/22/22) [facility] ileocecectomy . Repeat ileocolonic resection with anastamosis in 2005 Laparotomy (07/07/17) [facility]: perforation of terminal ileum with ileocolonic resection, primary anastomosis and diverting loop ileostomy. Family History Mother Heart disease AFIB and CHF Social History (Updated 10/12/22 @ 14:57 by Arcelia Lezama CMA) Smoking/Tobacco Use Status: Current every day Tobacco: How many years used: 30 Quit status: not considering quitting Smoking risk assessment performed?: Yes Alcohol Intake: current Alcohol Intake frequency: a few times a week Alcohol type: beer Drug use: Never Substance use type: marijuana Adopted: No Caregiver/Support person: No Foster care: No Household members: family Housing: house Number of Children: 3 Communication Needs: None Education Level: high school Do you need help understanding health information?: Never current occupation: Disabled Pets and animals: Yes Pets and animals: dog(s) Sexually active: No Do you think of yourself as: straight/heterosexual Current gender identity: male What is your relationship status?: never How often do you get together with friends or relatives?: twice per week Do you belong to any clubs or organized social groups?: no Panel score (0-1 are the most socially isolated patients): 0 What type of physical activity do you participate in: none and decline to answer Frequency: decline to answer Katy/Roman Catholic: Believes in God Special katy needs: No Seatbelt use: always Helmet use: No Drive intox or ride w/intox 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
[2024-12-20] MEDS: cefTRIAXone 2 GM/50 ML BAG IVPB (09:55)
[2024-12-20 10:00] VITALS: BP 135/93; PULSE 106; RESP 17; TEMP 36.1
--- NOTE | 2024-12-20 17:32 | PDOC.CMDIS ---
Date of service: 12/20/24 Time of Service: 11:00 LACE Index Scoring Tool Questions: Length of Stay (in days): 4 - 6 Was the patient admitted via the E.D.?: Yes E.D. Visits: 2 Answers: Total Score: 9 Risk of Readmission: Low Risk Care Management Discharge Plan Reason for Hospitalization: bacteremia Discharge Plan: Kvng was discharged home with the plan to attend the Infusion Therapy at [facility] daily at 2pm through 01/11. RCT rides have been set up for him, by [facility], for each of those days. Kvng will need to also f/u with his PCP and his specialists. Kvng was driven home today by a friend. He is fully aware and in agreement with this plan. Patient/Family Education Needs: Review of discharge instructions, activity, limitations, and discuss Ask me 3. Services Needed at Discharge: Transportation ([facility]CT has been arranged daily through 01/11 for trips to Infusion) SDOH Health Related Social Needs: Health related social needs food insecurity
== END 2024-12-20 11:45 | disposition home or self-care (01) ==
LOC: ER 12-15 00:22 → EDHOLD 12-15 00:32 → MS 12-15 14:42
PROVIDERS: Admitting Provider Family Medicine; Emergency Provider Physician Assistant; PCP Family Medicine; Responsible Provider Nurse Practitioner Acute Care; Visit Provider Family Medicine
DX: A41.01 Sepsis due to Methicillin susceptible Staphylococcus aureus (principal); L03.811 Cellulitis of head [any part, except face]; E87.6 Hypokalemia; D50.9 Iron deficiency anemia, unspecified; Z93.2 Ileostomy status; K50.919 Crohn's disease, unspecified, with unspecified complications; D84.821 Immunodeficiency due to drugs; Z79.69 Long term (current) use of other immunomodulators and immunosuppressants; Z59.41 Food insecurity; Z90.49 Acquired absence of other specified parts of digestive tract; F17.210 Nicotine dependence, cigarettes, uncomplicated
CPT/HCPCS: 36410; 00123; 36415; 80048; 80053; 87040; 87077; 93005; 93306; 96365; 96367; 96368; 99285; 99291; 70450; 71046; 80202; 81003; 81015; 83605; 83735; 85025; 87070; 87186; 87205; 93010; 99222; 99232; 99233; 99239; G0378; J0131; J0690; J0696; J1885; J2543; J3373; J3475; J3480

== ENCOUNTER 2025-01-11 00:01 | Outpatient (RCR) | payer MEDICARE, SELFPAY ==
[2024-12-21] MEDS: cefTRIAXone 2 GM/50 ML BAG IVPB (13:57)
[2024-12-21] MEDS: Normal Saline Flush 10 ML SYR IVP (13:57)
[2024-12-22] MEDS: Normal Saline Flush 10 ML SYR IVP (14:29)
[2024-12-22] MEDS: cefTRIAXone 2 GM/50 ML BAG IVPB (14:36)
[2024-12-22 15:03] LABS: Abs Immature Grans 0.17 10^3/uL (0.0-0.06); HCT 36.6 % (40.0-50.0); HGB 11.2 g/dL (13.5-17.5); Immature Grans % 1.4 %; MCH 25.7 pg (27.0-33.0); MCHC 30.6 % (32.0-36.0); MCV 84 fL (80-95); MPV 9.5 fL (8.0-11.0); Platelet Count 485 10^3/uL (130-400); RBC 4.36 10^6/uL (4.36-5.78); RDW 16.8 % (11.8-14.1); RDW-SD 51.6 fL; WBC 12.45 10^3/uL (4.4-10.8)
[2024-12-23] MEDS: Normal Saline Flush 10 ML SYR IVP (14:09)
[2024-12-23] MEDS: cefTRIAXone 2 GM/50 ML BAG IVPB (14:09)
[2024-12-24] MEDS: Normal Saline Flush 10 ML SYR IVP (14:01)
[2024-12-24] MEDS: cefTRIAXone 2 GM/50 ML BAG IVPB (14:01)
[2024-12-25] MEDS: Normal Saline Flush 10 ML SYR IVP (13:46)
[2024-12-25] MEDS: cefTRIAXone 2 GM/50 ML BAG IVPB (13:46)
[2024-12-26] MEDS: cefTRIAXone 2 GM/50 ML BAG IVPB (13:52)
[2024-12-26] MEDS: Normal Saline Flush 10 ML SYR IVP (13:53)
[2024-12-27] MEDS: cefTRIAXone 2 GM/50 ML BAG IVPB (13:55)
[2024-12-27] MEDS: Normal Saline Flush 10 ML SYR IVP (13:55)
[2024-12-28] MEDS: cefTRIAXone 2 GM/50 ML BAG IVPB (13:25)
[2024-12-28] MEDS: Normal Saline Flush 10 ML SYR IVP (13:25)
[2024-12-29] MEDS: Normal Saline Flush 10 ML SYR IVP (13:52)
[2024-12-29] MEDS: cefTRIAXone 2 GM/50 ML BAG IVPB (13:52)
[2024-12-30] MEDS: cefTRIAXone 2 GM/50 ML BAG IVPB (13:45)
[2024-12-30] MEDS: Normal Saline Flush 10 ML SYR IVP (13:46)
[2024-12-31] MEDS: cefTRIAXone 2 GM/50 ML BAG IVPB (13:36)
[2024-12-31] MEDS: Normal Saline Flush 10 ML SYR IVP (13:37)
[2025-01-01] MEDS: Normal Saline Flush 10 ML SYR IVP (13:13)
[2025-01-01] MEDS: cefTRIAXone 2 GM/50 ML BAG IVPB (13:13)
[2025-01-02] MEDS: Normal Saline Flush 10 ML SYR IVP (13:43)
[2025-01-02] MEDS: cefTRIAXone 2 GM/50 ML BAG IVPB (13:43)
[2025-01-03] MEDS: cefTRIAXone 2 GM/50 ML BAG IVPB (13:48)
[2025-01-03] MEDS: Normal Saline Flush 10 ML SYR IVP (13:48)
[2025-01-04] MEDS: cefTRIAXone 2 GM/50 ML BAG IVPB (13:37)
[2025-01-04] MEDS: Normal Saline Flush 10 ML SYR IVP (13:37)
[2025-01-05] MEDS: cefTRIAXone 2 GM/50 ML BAG IVPB (13:32)
[2025-01-06] MEDS: cefTRIAXone 2 GM/50 ML BAG IVPB (14:02)
[2025-01-07] MEDS: cefTRIAXone 2 GM/50 ML BAG IVPB (13:43)
[2025-01-08] MEDS: cefTRIAXone 2 GM/50 ML BAG IVPB (13:45)
[2025-01-08] MEDS: Normal Saline Flush 10 ML SYR IVP (13:57)
[2025-01-09] MEDS: cefTRIAXone 2 GM/50 ML BAG IVPB (13:30)
[2025-01-09] MEDS: Normal Saline Flush 10 ML SYR IVP (13:32)
[2025-01-10] MEDS: cefTRIAXone 2 GM/50 ML BAG IVPB (13:30)
[2025-01-10] MEDS: Normal Saline Flush 10 ML SYR IVP (14:47)
[2025-01-11] MEDS: cefTRIAXone 2 GM/50 ML BAG IVPB (13:32)
[2025-01-11] MEDS: Normal Saline Flush 10 ML SYR IVP (13:35)
[2025-01-11] MEDS: Bacitracin 1 PACKET (14:05)
== END 2025-01-18 23:59 | disposition home or self-care (01) ==
LOC: INF 00:01
PROVIDERS: PCP Family Medicine; Visit Provider Nurse Practitioner Acute Care
DX: L03.811 Cellulitis of head [any part, except face] (principal)
CPT/HCPCS: 36415; 96365; 85025; J0696